=== PATIENT | male | born 1930 | race Caucasian/White ===

== ENCOUNTER → 2016-03-24 | Outpatient (CLI) | payer BC ==
[~2016-03-24] MED LIST: INSDGI SC; INSU1INJ2 SC; INSUINJ14 SC; OXYC-57 PO; TRAM-10 PO; WARF2.5T8 PO; WARF5TAB7 PO; [UNRECOGNIZED DRUG - CODE] TOP
--- NOTE | 2016-03-24 11:11 | DIAGNOSTIC IMAGING REPORT ---
ABDOMEN 2VIEW W/PA CHEST RTN CLINICAL HISTORY: Generalized abdominal pain and constipation COMPARISON STUDY: Chest x-ray dated 01/03/2016, CT scan dated 12/15/2015 FINDINGS: There are postsurgical changes of midline sternotomy. There is no free air. There is no focal pulmonary consolidation. Erect and supine views the abdomen reveal no abnormally dilated loops of large or small bowel. There are no transition zones indicate bowel obstruction. There is contrast within multiple colonic diverticula. There are surgical clips within the right upper quadrant consistent with a prior cholecystectomy. There is scattered stool within the region of the hepatic flexure. IMPRESSION: 1. No evidence of bowel obstruction. No evidence of free air 2. Colonic diverticulosis Electronically signed by: Dhruv Mendoza M.D. 03/24/2016 11:10 AM Dictated Date/Time: 03/24/2016 11:09 AM
== END | disposition home or self-care (01) ==
LOC: C.RAD1850 10:44
PROVIDERS: ATTEND Internal Medicine
DX: K57.90 Diverticulosis of intestine, part unspecified, without perforation or abscess without bleeding (principal)

== ENCOUNTER 2016-05-29 13:36 | Emergency (ER) | payer BC ==
[~2016-05-29] VITALS: Ht 172.7 cm; Wt 84.3 kg
[~2016-05-29 13:36] MED LIST changes: -INSU1INJ2 SC; -TRAM-10 PO
[2016-05-29 13:48] VITALS: TEMP 36.5; Ht 172.7 cm; Wt 84.3 kg
--- NOTE | 2016-05-29 14:25 | EMERGENCY ROOM VISIT NOTE ---
History Report prepared by Ty: Yessica Begum Under the Supervision of: Dr. Tom Flowers M.D. First contact with patient: 14:17 Chief Complaint: ABDOMINAL PAIN Stated Complaint: STOMACH PAIN Nursing Triage Summary: Pt c/o abd pain, worse on left lower quadrant. nausea, but denies v/d. tender with palpation. ongoing several weeks. Was seen by PCP, thinks it is Diverticulitis. pt does have hx of divertic. Hernia Surgery several months ago History of Present Illness The patient is an 85 year old male who presents to the Emergency Room with complaints of persistent left lower quadrant abdominal pain that began this morning. He currently rates his discomfort as a 5/10 in severity. The patient states that he has a history of diverticulitis in the past. He states that today he was at his PCP's office for ongoing right upper quadrant abdominal pain. The patient states that when his PCP palpated his left lower quadrant he noticed increased pain. Source of History: patient Onset: this morning Position: abdomen (LLQ) Symptom Intensity: 5/10 Timing: other (persistent) Associated Symptoms: + abdominal pain (right upper quadrant ) Review of Systems See HPI for pertinent positives & negatives. A total of 10 systems reviewed and were otherwise negative. Past Medical & Surgical Medical Problems: (1) Artificial Heart Valve (2) Diabetes mellitus (3) Gastroesophageal reflux disease (4) Lumbar radiculopathy (5) Paroxysmal atrial fibrillation Family History Cancer Social History Smoking Status: Never Smoker Alcohol Use: none Drug Use: none Marital Status: Housing Status: lives with family Occupation Status: retired Current/Historical Medications Scheduled Clotrimazole (Topical) ([facility] Clotrimazole), 1 DOSE TOP PRN Insulin Aspart (Novolog Penfill), 5 UNITS SC TIDM Insulin Glargine (Lantus), 30 UNITS SC HS Warfarin Sod (Jantoven), 5 MG PO 5XWEEK Warfarin Sod (Jantoven), 2.5 MG PO 2XWEEK Scheduled PRN Tramadol (Ultram), 50-100 MG PO Q6H PRN for Pain Allergies Coded Allergies: Glyburide (Verified Allergy, Unknown, PT NOT AWARE, 05/29/16) Metformin (Verified Allergy, Unknown, DIARRHEA, 05/29/16) Niacin (Verified Allergy, Unknown, RED FLUSH, 05/29/16) Ezetimibe (Verified Adverse Reaction, Unknown, ALL STATINS GIVE LEG CRAMPS , 05/29/16) HMG-CoA-R Inhibitors (Verified Adverse Reaction, Unknown, ALL STATINS GIVE LEG CRAMPS, 05/29/16) Physical Exam Vital Signs Date Time Temp Pulse Resp B/P Pulse Ox O2 Delivery O2 Flow Rate FiO2 05/29/16 17:19 68 18 142/75 97 Room Air 05/29/16 15:27 80 20 6/76 97 Room Air 05/29/16 13:48 36.5 84 20 118/78 97 Room Air Physical Exam GENERAL: Patient is a healthy-appearing well-nourished HEAD: Normocephalic atraumatic EYES: Ocular movements intact pupils equal and react to light OROPHARYNX mucous membranes are moist no exudates present no erythema or edema present NECK: Supple no nuchal rigidity CHEST: Good equal expansion LUNGS: Clear and equal to auscultation CARDIAC: Normal S1 and S2 ABDOMEN: Soft, mildly tender in the left lower quadrant, no guarding BACK: No CVA tenderness EXTREMITIES: No pain upon palpation normal muscle strength in all groups no clubbing cyanosis or edema NEURO: Patient is following commands is answering questions appropriately. Alert and oriented x3 Cranial Nerves 2-12 grossly intact Medical Decision & Procedures ER Provider Diagnostic Interpretation: Radiology results as stated below per my review and radiologist interpretation: CT OF THE ABDOMEN AND PELVIS WITH CONTRAST CLINICAL HISTORY: Left lower quadrant abdominal pain. COMPARISON STUDY: CT of the abdomen and pelvis December 15, 2015 TECHNIQUE: Following IV administration of 116 mL of Optiray-320, axial images of the abdomen and pelvis were obtained from the lung bases to the proximal femurs. Images were reviewed in the axial, sagittal, and coronal planes. IV contrast was administered without complication. CT DOSE: 493.91 mGy.cm FINDINGS: A prosthetic aortic valve is noted. There is moderate cardiomegaly. No pneumatosis, free air or portal venous gas is present. There is fatty infiltration of the liver. There is no biliary ductal dilatation status post cholecystectomy. The adrenal glands, kidneys and pancreas are unremarkable. There is no hydronephrosis. There is no evidence for a bowel obstruction. There is extensive sigmoid diverticulosis without evidence for acute diverticulitis. Post surgical findings suggestive of a left inguinal hernia repair are noted no suspicious skeletal lesions are identified. IMPRESSION: 1. No acute process within the abdomen or pelvis. 2. Fatty liver. 3. Extensive sigmoid diverticulosis without evidence for acute diverticulitis. Electronically signed by: Wu Burrell M.D. 05/29/2016 5:15 PM Dictated Date/Time: 05/29/2016 5:11 PM ABDOMINAL ULTRASOUND, RIGHT UPPER QUADRANT HISTORY: Right upper quadrant pain. COMPARISON: CT of the abdomen and pelvis December 15, 2015 and right upper quadrant ultrasound July 21, 2005. FINDINGS: Hepatic echogenicity is increased. There is no biliary ductal dilatation status post cholecystectomy. The pancreas is obscured by overlying bowel gas. There is no right hydronephrosis. IMPRESSION: 1. Fatty liver. 2. No biliary ductal dilatation status post cholecystectomy. 3. Obscured pancreas. Electronically signed by: Wu Burrell M.D. 05/29/2016 4:06 PM Dictated Date/Time: 05/29/2016 4:04 PM Laboratory Results 05/29/16 14:50 Red Blood Count 4.60, Mean Corpuscular Volume 90.4, Mean Corpuscular Hemoglobin 31.1, Mean Corpuscular Hemoglobin Concent 34.4, Mean Platelet Volume 10.4, Neutrophils (%) (Auto) 66.2, Lymphocytes (%) (Auto) 23.5, Monocytes (%) (Auto) 7.7, Eosinophils (%) (Auto) 1.8, Basophils (%) (Auto) 0.5, Neutrophils # (Auto) 4.11, Lymphocytes # (Auto) 1.46, Monocytes # (Auto) 0.48, Eosinophils # (Auto) 0.11, Basophils # (Auto) 0.03 05/29/16 14:50 Test 05/29/16 14:50 05/29/16 14:56 05/29/16 16:15 White Blood Count 6.21 K/uL (4.8-10.8) Red Blood Count 4.60 M/uL (4.7-6.1) Hemoglobin 14.3 g/dL (14.0-18.0) Hematocrit 41.6 % (42-52) Mean Corpuscular Volume 90.4 fL (80-100) Mean Corpuscular Hemoglobin 31.1 pg (25-34) Mean Corpuscular Hemoglobin Concent 34.4 g/dl (32-36) Platelet Count 196 K/uL (130-400) Mean Platelet Volume 10.4 fL (7.4-10.4) Neutrophils (%) (Auto) 66.2 % Lymphocytes (%) (Auto) 23.5 % Monocytes (%) (Auto) 7.7 % Eosinophils (%) (Auto) 1.8 % Basophils (%) (Auto) 0.5 % Neutrophils # (Auto) 4.11 K/uL (1.4-6.5) Lymphocytes # (Auto) 1.46 K/uL (1.2-3.4) Monocytes # (Auto) 0.48 K/uL (0.11-0.59) Eosinophils # (Auto) 0.11 K/uL (0-0.5) Basophils # (Auto) 0.03 K/uL (0-0.2) RDW Standard Deviation 42.7 fL (36.4-46.3) RDW Coefficient of Variation 13.0 % (11.5-14.5) Immature Granulocyte % (Auto) 0.3 % Immature Granulocyte # (Auto) 0.02 K/uL (0.00-0.02) Est Creatinine Clear Calc Drug Dose 34.8 ml/min Estimated GFR () 42.3 Estimated GFR (Non- 36.5 BUN/Creatinine Ratio 12.7 (10-20) Calcium Level 9.4 mg/dl (8.5-10.1) Total Bilirubin 0.4 mg/dl (0.2-1) Direct Bilirubin mg/dl (0-0.2) Aspartate Amino Transf (AST/SGOT) 24 U/L (15-37) Alanine Aminotransferase (ALT/SGPT) 28 U/L (12-78) Alkaline Phosphatase 84 U/L (45-117) Total Protein 7.7 gm/dl (6.4-8.2) Albumin 3.8 gm/dl (3.4-5.0) Lipase 72 U/L (73-393) Chemistry Specimen Hemolysis Bedside Hemoglobin 14.6 g/dl (14.0-18.0) Bedside Hematocrit 43 % (42-52) Bedside Sodium 140 mEq/L (135-144) Bedside Potassium 4.0 mEq/L (3.3-5.0) Bedside Chloride 99 mEq/L (101-112) Bedside Total CO2 26 mEq/l (24-31) Anion Gap 19.0 mmol/L (16-25) Bedside Blood Urea Nitrogen 23 mg/dl (7-18) Bedside Creatinine 1.4 mg/dl (0.6-1.3) Bedside Glucose (other) 193 mg/dl (70-99) Bedside Ionized Calcium (Sabra) 1.21 mmol/l (1.12-1.32) Urine Color YELLOW Urine Appearance CLOUDY (CLEAR) Urine pH 6.5 (4.5-7.5) Urine Specific [place] 1.008 (1.000-1.030) Urine Protein NEG (NEG) Urine Glucose (UA) NEG (NEG) Urine Ketones NEG (NEG) Urine Occult Blood NEG (NEG) Urine Nitrite NEG (NEG) Urine Bilirubin NEG (NEG) Urine Urobilinogen NEG (NEG) Urine Leukocyte Esterase NEG (NEG) Urine WBC (Auto) 0 /hpf (0-5) Urine RBC (Auto) 0-4 /hpf (0-4) Urine Hyaline Casts (Auto) 0 /lpf (0-5) Urine Epithelial Cells (Auto) 0-5 /lpf (0-5) Urine Bacteria (Auto) NEG (NEG) Labs reviewed by ED physician. Medications Administered Medications (Trade) Dose Ordered Sig/Cathi Route Start Time Stop Time Status Last Admin Dose Admin Sodium Chloride (Nss 1000ml) 1,000 ml @ 999 mls/hr Q1H1M STAT IV 05/29/16 14:26 05/29/16 15:26 DC 05/29/16 15:09 999 MLS/HR ED Course 1420: Past medical records reviewed. The patient was evaluated in room C2A. A complete history and physical examination was performed. 1426: Ordered Sodium Chloride 1000 ml @ 999 mls/hr IV. 1736: I reevaluated the patient and he is resting comfortably. I discussed the exam findings with him and I discussed the treatment plan. He verbalized complete understanding and agreement. He is ready to go home. Medical Decision Differential diagnosis: Etiologies such as appendicitis, diverticulitis, PUD, biliary pathology, UTI, pancreatitis, obstruction, mesenteric ischemia, aortic pathology, infections, inflammatory bowel disease, renal colic, as well as others were entertained. This is an 85-year-old male who presents emergency Department with his sent in by his primary care physician. They were sent" for a ultrasound of the left lower quadrant". Upon arrival to the emergency department I explained I do not think there will be a high yield for an ultrasound of the left lower quadrant however is insisting on it. The patient was sent for an ultrasound of the right upper quadrant which did not show any evidence of acute process. I will note that the patient has a normal CBC normal renal profile normal liver profile normal lipase here in the emergency department. In addition the CAT scan does not show any evidence of acute process. An IV was established, patient given normal saline bolus. I do believe based on the findings at the patient is well enough to be discharged home for follow-up with his primary care physician. Patient are in agreement with the treatment plan. Impression Primary Impression: Abdominal pain, left lower quadrant Scribe Attestation The scribe's documentation has been prepared under my direction and personally reviewed by me in its entirety. I confirm that the note above accurately reflects all work, treatment, procedures, and medical decision making performed by me. Departure Information Dispostion Home / Self-Care Referrals Viktor Jones M.D. (PCP) Forms HOME CARE DOCUMENTATION FORM, IMPORTANT VISIT INFORMATION, School Instructions, Work Instructions Patient Instructions ED Abd Pain Unkn Cause Male, ED Diet Clear Liquid, My [facility] Additional Instructions Take 10 oz bottle of miralax; Add to 16 oz of gatorade Drink continuously until moving creamy stools Clear liquid diet for next 48 hours Return if you develop fevers or pain worsens You have been examined and treated today on an emergency basis only. This is not a substitute for, or an effort to provide, complete comprehensive medical care. It is impossible to recognize and treat all injuries or illnesses in a single emergency department visit. It is therefore important that you follow up closely with Dr Jones. Call as soon as possible for an appointment. Thank you for your time and consideration. I look forward to speaking with you again soon. Please don't hesitate to call us if you have any questions.
[2016-05-29] MEDS ORDERED: SODIUM CHLORIDE 0.9% 1000ML 1,000 ML IV STA (14:26)
[2016-05-29] MEDS ORDERED: OPTIRAY 320 IV PRN (14:30)
[2016-05-29 15:01] LABS: BASO % 0.5 %; BASO ABS # 0.03 K/uL (0-0.2); COMPLETE YES; EOS % 1.8 %; HEMATOCRIT 41.6 % (42-52); IG% 0.3 %; LYMPH % 23.5 %; LYMPH ABS # 1.46 K/uL (1.2-3.4); MEAN CELL VOLUME 90.4 fL (80-100); MEAN CORPUSCULAR HEMOGLOBIN 31.1 pg (25-34); MEAN CORPUSCULAR HGB CONC 34.4 g/dl (32-36); MEAN PLATELET VOLUME 10.4 fL (7.4-10.4); MONO % 7.7 %; NEUT % 66.2 %; PLATELET COUNT 196 K/uL (130-400); WHITE BLOOD COUNT 6.21 K/uL (4.8-10.8)
[2016-05-29 15:10] LABS: ISTAT CREATININE 1.4 mg/dl (0.6-1.3); ISTAT HEMOGLOBIN 14.6 g/dl (14.0-18.0); ISTAT IONIZED CALCIUM 1.21 mmol/l (1.12-1.32)
[2016-05-29] MEDS ORDERED: INSU1INJ2 SC (15:50)
[2016-05-29] MEDS ORDERED: TRAM-10 PO (15:50)
[2016-05-29 15:52] LABS: ALKALINE PHOSPHATASE 84 U/L (45-117); ALT/SGPT 28 U/L (12-78); BLOOD UREA NITROGEN 22 mg/dl (7-18); BUN/CREATININE RATIO 12.7 (10-20); CALCIUM 9.4 mg/dl (8.5-10.1); CARBON DIOXIDE 30 mmol/L (21-32); CHLORIDE 103 mmol/L (98-107); GLUCOSE 192 mg/dl (70-99); POTASSIUM 4.2 mmol/L (3.5-5.1); SODIUM 140 mmol/L (136-145)
[2016-05-29 15:57] LABS: AST/SGOT 24 U/L (15-37)
--- NOTE | 2016-05-29 16:07 | DIAGNOSTIC IMAGING REPORT ---
ABDOMINAL ULTRASOUND, RIGHT UPPER QUADRANT HISTORY: Right upper quadrant pain. COMPARISON: CT of the abdomen and pelvis December 15, 2015 and right upper quadrant ultrasound July 21, 2005. FINDINGS: Hepatic echogenicity is increased. There is no biliary ductal dilatation status post cholecystectomy. The pancreas is obscured by overlying bowel gas. There is no right hydronephrosis. IMPRESSION: 1. Fatty liver. 2. No biliary ductal dilatation status post cholecystectomy. 3. Obscured pancreas. Electronically signed by: Wu Burrell M.D. 05/29/2016 4:06 PM Dictated Date/Time: 05/29/2016 4:04 PM
[2016-05-29 16:28] LABS: URINE APPEARANCE CLOUDY (CLEAR); URINE BILIRUBIN NEG (NEG); URINE COLOR YELLOW; URINE EPITHELIAL CELL AUTO 0-5 /lpf (0-5); URINE NITRITE NEG (NEG); URINE PH 6.5 (4.5-7.5); URINE SPECIFIC GRAVITY 1.008 (1.000-1.030); UROBILINOGEN NEG (NEG)
[2016-05-29 16:34] LABS: MANUAL MICROSCOPIC REQUIRED? NO; REVIEW REQ? NO
--- NOTE | 2016-05-29 17:16 | DIAGNOSTIC IMAGING REPORT ---
CT OF THE ABDOMEN AND PELVIS WITH CONTRAST CLINICAL HISTORY: Left lower quadrant abdominal pain. COMPARISON STUDY: CT of the abdomen and pelvis December 15, 2015 TECHNIQUE: Following IV administration of 116 mL of Optiray-320, axial images of the abdomen and pelvis were obtained from the lung bases to the proximal femurs. Images were reviewed in the axial, sagittal, and coronal planes. IV contrast was administered without complication. CT DOSE: 493.91 mGy.cm FINDINGS: A prosthetic aortic valve is noted. There is moderate cardiomegaly. No pneumatosis, free air or portal venous gas is present. There is fatty infiltration of the liver. There is no biliary ductal dilatation status post cholecystectomy. The adrenal glands, kidneys and pancreas are unremarkable. There is no hydronephrosis. There is no evidence for a bowel obstruction. There is extensive sigmoid diverticulosis without evidence for acute diverticulitis. Post surgical findings suggestive of a left inguinal hernia repair are noted no suspicious skeletal lesions are identified. IMPRESSION: 1. No acute process within the abdomen or pelvis. 2. Fatty liver. 3. Extensive sigmoid diverticulosis without evidence for acute diverticulitis. Electronically signed by: Wu Burrell M.D. 05/29/2016 5:15 PM Dictated Date/Time: 05/29/2016 5:11 PM
[2016-05-29 17:19] VITALS: BP 142/75; PULSE 68; O2SAT 97
== END 2016-05-29 17:56 | disposition home or self-care (01) ==
LOC: C.EDB 13:37 → C.EDC 17:56
DX: R10.32 Left lower quadrant pain (principal); R10.11 Right upper quadrant pain; E11.9 Type 2 diabetes mellitus without complications; K21.9 Gastro-esophageal reflux disease without esophagitis; I48.0 Paroxysmal atrial fibrillation; M54.16 Radiculopathy, lumbar region; Z95.2 Presence of prosthetic heart valve; Z79.4 Long term (current) use of insulin; Z79.01 Long term (current) use of anticoagulants

== ENCOUNTER → 2016-06-02 | Outpatient (CLI) | payer BC ==
[~2016-06-02] MED LIST changes: +INSU1INJ2 SC; -INSUINJ14 SC; -OXYC-57 PO; +TRAM-10 PO
== END | disposition home or self-care (01) ==
LOC: C.LABSPEC 16:52
PROVIDERS: ATTEND Physician Assistant Medical
DX: R10.9 Unspecified abdominal pain (principal)

== ENCOUNTER 2016-06-03 03:24 | Emergency (ER) | payer BC ==
[~2016-06-03] VITALS: Ht 172.7 cm; Wt 83.7 kg
[2016-06-03 03:42] VITALS: TEMP 36.5; Ht 172.7 cm; Wt 83.7 kg
--- NOTE | 2016-06-03 04:20 | EMERGENCY ROOM VISIT NOTE ---
History Report prepared by Ty: Jaylen Vick Under the Supervision of: Dr. Lacy Ace D.O. First contact with patient: 03:48 Chief Complaint: ABDOMINAL PAIN Stated Complaint: STOMACH PAINS Nursing Triage Summary: Patient reports lower abdominal pain x1 week and states "I think I'm passing worms." History of Present Illness The patient is an 85 year old male who presents to the Emergency Room with complaints of persistent abdominal pain for the past four weeks. The pain is rated 5/10 in severity, and is improved when he has a bowel movement. The patient has also been passing what he believes are worms in place of his bowel movements, which he first noticed yesterday. He saw his PCP and had a sample sent in yesterday, which has not been resulted. He was started on Cipro and Flagyl when he was in the ED last week for his abdominal pain. The patient has had a Big Mac, grilled cheese, venison to eat since he noticed the work-like objects. The patient also complains of intermittent nausea. The patient experiences frequent constipation for which he takes laxatives. He was able to get some sleep tonight prior to coming in to the ED. He has been to the ED in the past for abdominal pain also. He has had colonoscopies in the past and had a benign polyp removed. He is diabetic. Source of History: patient Onset: four weeks ago Position: abdomen Symptom Intensity: 5/10 Timing: other (persistent) Modifying Factors (Relieving): defecation Associated Symptoms: + nausea Review of Systems See HPI for pertinent positives & negatives. A total of 10 systems reviewed and were otherwise negative. Past Medical & Surgical Medical Problems: (1) Artificial Heart Valve (2) Diabetes mellitus (3) Gastroesophageal reflux disease (4) Lumbar radiculopathy (5) Paroxysmal atrial fibrillation Family History Cancer Social History Smoking Status: Never Smoker Alcohol Use: none Drug Use: none Marital Status: Housing Status: lives with family Occupation Status: retired Current/Historical Medications Scheduled Insulin Aspart (Novolog Penfill), 5 UNITS SC TIDM Insulin Glargine (Lantus), 30 UNITS SC HS Warfarin Sod (Jantoven), 5 MG PO 5XWEEK Warfarin Sod (Jantoven), 2.5 MG PO 2XWEEK Scheduled PRN Tramadol (Ultram), 50-100 MG PO Q6H PRN for Pain Allergies Coded Allergies: Glyburide (Verified Allergy, Unknown, PT NOT AWARE, 06/03/16) Metformin (Verified Allergy, Unknown, DIARRHEA, 06/03/16) Niacin (Verified Allergy, Unknown, RED FLUSH, 06/03/16) Ezetimibe (Verified Adverse Reaction, Unknown, ALL STATINS GIVE LEG CRAMPS , 06/03/16) HMG-CoA-R Inhibitors (Verified Adverse Reaction, Unknown, ALL STATINS GIVE LEG CRAMPS, 06/03/16) Physical Exam Vital Signs Date Time Temp Pulse Resp B/P Pulse Ox O2 Delivery O2 Flow Rate FiO2 06/03/16 05:27 82 18 134/91 97 Room Air 06/03/16 03:42 36.5 83 18 150/97 97 Room Air Physical Exam HEENT: Head - normocephalic and atraumatic Pupils are equal, round, and reactive to light. Extraocular eye muscles are intact, and sclera are anicteric. Nose - moist nasal mucosa without discharge. Mouth - moist buccal mucosa. Oropharynx is nonerythematous and there is no tonsillar exudate or edema noted. Neck: Supple; no JVD, nuchal rigidity, cervical lymphadenopathy. Heart: Regular rate and rhythm. There is a normal S1 and S2 with no murmurs, clicks, or gallops appreciated. Lungs: Clear to auscultation bilaterally with no wheezes, rales, or rhonchi. Abdomen: Slight pain with palpation of the right upper quadrant. There are no palpable pulsatile masses or hepatosplenomegaly. There is no guarding, rigidity , or rebound noted. Extremities: No evidence of cyanosis, clubbing, or edema. There are easily palpable peripheral pulses. Skin: warm and dry with good turgor and no rashes. Medical Decision & Procedures Laboratory Results 06/03/16 04:30 Red Blood Count 4.66, Mean Corpuscular Volume 90.1, Mean Corpuscular Hemoglobin 31.8, Mean Corpuscular Hemoglobin Concent 35.2, Mean Platelet Volume 10.3, Neutrophils (%) (Auto) 60.6, Lymphocytes (%) (Auto) 25.2, Monocytes (%) (Auto) 11.1, Eosinophils (%) (Auto) 2.5, Basophils (%) (Auto) 0.3, Neutrophils # (Auto ) 3.70, Lymphocytes # (Auto) 1.54, Monocytes # (Auto) 0.68, Eosinophils # (Auto ) 0.15, Basophils # (Auto) 0.02 06/03/16 04:30 Test 06/03/16 04:30 White Blood Count 6.11 K/uL (4.8-10.8) Red Blood Count 4.66 M/uL (4.7-6.1) Hemoglobin 14.8 g/dL (14.0-18.0) Hematocrit 42.0 % (42-52) Mean Corpuscular Volume 90.1 fL (80-100) Mean Corpuscular Hemoglobin 31.8 pg (25-34) Mean Corpuscular Hemoglobin Concent 35.2 g/dl (32-36) Platelet Count 191 K/uL (130-400) Mean Platelet Volume 10.3 fL (7.4-10.4) Neutrophils (%) (Auto) 60.6 % Lymphocytes (%) (Auto) 25.2 % Monocytes (%) (Auto) 11.1 % Eosinophils (%) (Auto) 2.5 % Basophils (%) (Auto) 0.3 % Neutrophils # (Auto) 3.70 K/uL (1.4-6.5) Lymphocytes # (Auto) 1.54 K/uL (1.2-3.4) Monocytes # (Auto) 0.68 K/uL (0.11-0.59) Eosinophils # (Auto) 0.15 K/uL (0-0.5) Basophils # (Auto) 0.02 K/uL (0-0.2) RDW Standard Deviation 42.2 fL (36.4-46.3) RDW Coefficient of Variation 12.9 % (11.5-14.5) Immature Granulocyte % (Auto) 0.3 % Immature Granulocyte # (Auto) 0.02 K/uL (0.00-0.02) Anion Gap 5.0 mmol/L (3-11) Est Creatinine Clear Calc Drug Dose 36.9 ml/min Estimated GFR () 45.5 Estimated GFR (Non- 39.3 BUN/Creatinine Ratio 12.7 (10-20) Calcium Level 9.3 mg/dl (8.5-10.1) Laboratory results per my review. Medications Administered Medications (Trade) Dose Ordered Sig/Cathi Route Start Time Stop Time Status Last Admin Dose Admin Hydromorphone HCl (Dilaudid Inj) 2 mg NOW STAT IV 06/03/16 04:37 06/03/16 04:38 DC 06/03/16 04:43 2 MG Procedure Medications administered include Dilaudid IV. ED Course 0400: Past medical records reviewed. The patient was evaluated in room B10. A complete history and physical exam was performed. I examined the patient's stool that he brought with him. IV lock was established. Labs were drawn as above. 0413: I Examined the stool sample with a scalpel revealing brown soft stool within dark green cords. Findings do not appear to be consistent with worms. 0430: The patient describes having a completely normal bowel movement containing normal brown stool, no worm-like objects seen. 0437: Dilaudid 2 mg IV for the abdominal pain. 0525: The patient's pain is down to a 2/10 from 4/10. I discussed the discharge instructions with him. He will be discharged. Medical Decision The patient is a 85 year old male who presents to the ED with abdominal pain. Differential diagnosis includes medication side effects, colitis, gastritis, parasites in stool. Laboratory interpretation: normal white count, stable H&H, creatinine down to 1.6, glucose 145. This is an 85-year-old male patient who is had ongoing abdominal pain. The past 4 weeks. He was seen here earlier this week and underwent laboratory testing, CT scan of the abdomen/pelvis, and ultrasound. These tests were all negative. The patient saw his PCP yesterday and submitted a stool specimen for parasites. This is currently pending. Physical exam, the patient's abdomen was only mildly tender to palpation in the right upper quadrant. The patient describes having some discomfort in the left lower quadrant of the abdomen earlier in the evening. After having a bowel movement, that pain subsided. I spent some time examining the patient's stool that he brought with him here to the emergency department. There was dark green stool that appeared in records. I was able to cut these open and noted brown stool in the middle. They did not look like worms. Impression Primary Impression: Abnormal stools Additional Impression: Diffuse abdominal pain Scribe Attestation The scribe's documentation has been prepared under my direction and personally reviewed by me in its entirety. I confirm that the note above accurately reflects all work, treatment, procedures, and medical decision making performed by me. Departure Information Dispostion Home / Self-Care Referrals Viktor Jones M.D. (PCP) Forms HOME CARE DOCUMENTATION FORM, IMPORTANT VISIT INFORMATION Patient Instructions My [facility] Additional Instructions Rest Take a bland diet. It's ok to stop the antibiotics Follow up for results of stool Return to the ER for severe pain, fever, or vomiting Problem Qualifiers
[2016-06-03] MEDS ORDERED: HYDROmorphone INJ 2 MG/ML SYR/VIAL IV STA (04:37)
[2016-06-03 04:49] LABS: BASO % 0.3 %; BASO ABS # 0.02 K/uL (0-0.2); COMPLETE YES; EOS % 2.5 %; IG% 0.3 %; LYMPH % 25.2 %; LYMPH ABS # 1.54 K/uL (1.2-3.4); MEAN CELL VOLUME 90.1 fL (80-100); MEAN CORPUSCULAR HEMOGLOBIN 31.8 pg (25-34); MEAN CORPUSCULAR HGB CONC 35.2 g/dl (32-36); MEAN PLATELET VOLUME 10.3 fL (7.4-10.4); MONO % 11.1 %; NEUT % 60.6 %; PLATELET COUNT 191 K/uL (130-400); RED BLOOD COUNT 4.66 M/uL (4.7-6.1); WHITE BLOOD COUNT 6.11 K/uL (4.8-10.8)
[2016-06-03 05:05] LABS: BUN/CREATININE RATIO 12.7 (10-20); CALCIUM 9.3 mg/dl (8.5-10.1); CREATININE 1.6 mg/dl (0.60-1.40); POTASSIUM 3.9 mmol/L (3.5-5.1)
[2016-06-03 05:27] VITALS: BP 134/91; PULSE 82; O2SAT 97
== END 2016-06-03 05:38 | disposition home or self-care (01) ==
LOC: C.EDB 03:25
DX: R19.5 Other fecal abnormalities (principal); R10.9 Unspecified abdominal pain; E11.9 Type 2 diabetes mellitus without complications; K21.9 Gastro-esophageal reflux disease without esophagitis; I48.91 Unspecified atrial fibrillation; Z95.2 Presence of prosthetic heart valve; Z79.4 Long term (current) use of insulin; Z79.01 Long term (current) use of anticoagulants

== ENCOUNTER → 2016-07-17 | Outpatient (CLI) | payer BC ==
[~2016-07-17] MED LIST changes: -[UNRECOGNIZED DRUG - CODE] TOP
== END | disposition home or self-care (01) ==
LOC: C.LABBFT 09:49
PROVIDERS: ATTEND Urology
DX: R97.20 Elevated prostate specific antigen [PSA] (principal)

== ENCOUNTER → 2016-11-13 | Outpatient (CLI) | payer BC ==
[2016-11-13 17:44] LABS: BASO % 0.3 %; BASO ABS # 0.02 K/uL (0-0.2); COMPLETE YES; EOS % 1.5 %; HEMATOCRIT 38.2 % (42-52); IG% 0.4 %; LYMPH % 20.6 %; LYMPH ABS # 1.56 K/uL (1.2-3.4); MEAN CELL VOLUME 93.4 fL (80-100); MEAN CORPUSCULAR HEMOGLOBIN 32.5 pg (25-34); MEAN CORPUSCULAR HGB CONC 34.8 g/dl (32-36); MEAN PLATELET VOLUME 11.5 fL (7.4-10.4); MONO % 7.3 %; NEUT % 69.9 %; PLATELET COUNT 183 K/uL (130-400); RED BLOOD COUNT 4.09 M/uL (4.7-6.1); WHITE BLOOD COUNT 7.58 K/uL (4.8-10.8)
[2016-11-13 17:46] LABS: URINE APPEARANCE CLEAR (CLEAR); URINE BILIRUBIN NEG (NEG); URINE COLOR YELLOW; URINE NITRITE NEG (NEG); URINE SPECIFIC GRAVITY 1.017 (1.000-1.030); UROBILINOGEN NEG (NEG); ZZUR CULT IF INDIC CLEAN CATCH NO
[2016-11-13 17:48] LABS: MANUAL MICROSCOPIC REQUIRED? NO; REVIEW REQ? NO
[2016-11-13 17:49] LABS: ALT/SGPT 24 U/L (12-78); AMYLASE 56 U/L (25-115); BLOOD UREA NITROGEN 26 mg/dl (7-18); BUN/CREATININE RATIO 16.4 (10-20); CARBON DIOXIDE 27 mmol/L (21-32); CHLORIDE 105 mmol/L (98-107); GLUCOSE 184 mg/dl (70-99); POTASSIUM 4.3 mmol/L (3.5-5.1); SODIUM 139 mmol/L (136-145)
[2016-11-13 17:52] LABS: ALB/GLOB RATIO 1.2 (0.9-2); ALKALINE PHOSPHATASE 70 U/L (45-117); AST/SGOT 19 U/L (15-37)
== END | disposition home or self-care (01) ==
LOC: C.LABBFT 14:07
PROVIDERS: ATTEND Physician Assistant Medical
DX: R10.9 Unspecified abdominal pain (principal); R97.20 Elevated prostate specific antigen [PSA]

== ENCOUNTER → 2016-11-15 | Outpatient (CLI) | payer BC ==
[~2016-11-15] MED LIST changes: +GADAVIST IV PRN
--- NOTE | 2016-11-17 15:28 | DIAGNOSTIC IMAGING REPORT ---
PROSTATE MRI COMBO CLINICAL HISTORY: 86 year-old Male presenting with ELEVATED PSA. TECHNIQUE: Multisequence, multiplanar MR imaging of the prostate was performed pre and postcontrast administration with dynamic enhancement. Injection of 8.3 cc of Gadavist IV was uneventful. Post processing was performed utilizing [employer]. COMPARISON: CT of the abdomen and pelvis May 29, 2016. FINDINGS: Prostate: The prostate measures 5.4 x 3.8 x 4 cm (calculated volume 39.3 mL). Moderate changes of benign prostatic hyperplasia. Precontrast T1 weighted imaging demonstrates no significant abnormality Seminal vesicles are normal. No suspicious lesions are identified within the prostate gland. A TURP defect is noted. Specifically, no T2 hypointense lesions are identified and there no areas of significant restricted diffusion to suggest malignancy within the prostate gland. The periprostatic tissues are unremarkable. There is no pelvic lymphadenopathy. No suspicious marrow replacement is identified within visualized skeletal structures. There is mild irregular wall thickening of the urinary bladder. PI-RADS: 1. Clinically significant cancer is highly unlikely to be present. IMPRESSION: 1. No evidence of a suspicious lesion within the prostate. PI-RADS 1. No suspicious findings. Clinically significant cancer is highly unlikely to be present. 2. Findings consistent with benign prostatic hyperplasia. Electronically signed by: Wu Burrell M.D. 11/17/2016 3:27 PM Dictated Date/Time: 11/17/2016 12:48 PM
== END | disposition home or self-care (01) ==
LOC: C.MRIBC 08:41
PROVIDERS: ATTEND Urology
DX: N40.2 Nodular prostate without lower urinary tract symptoms (principal); R97.20 Elevated prostate specific antigen [PSA]

== ENCOUNTER → 2016-12-11 | Outpatient (CLI) | payer BC ==
[~2016-12-11] MED LIST changes: -GADAVIST IV PRN
[2016-12-11 12:29] LABS: BASO % 0.3 %; BASO ABS # 0.02 K/uL (0-0.2); COMPLETE YES; EOS % 1.7 %; HEMATOCRIT 41.6 % (42-52); IG% 0.5 %; LYMPH % 25.2 %; LYMPH ABS # 1.52 K/uL (1.2-3.4); MEAN CELL VOLUME 92.7 fL (80-100); MEAN CORPUSCULAR HEMOGLOBIN 32.5 pg (25-34); MEAN CORPUSCULAR HGB CONC 35.1 g/dl (32-36); MEAN PLATELET VOLUME 11.6 fL (7.4-10.4); MONO % 9.8 %; NEUT % 62.5 %; PLATELET COUNT 197 K/uL (130-400); RED BLOOD COUNT 4.49 M/uL (4.7-6.1); WHITE BLOOD COUNT 6.04 K/uL (4.8-10.8)
[2016-12-11 12:41] LABS: ESTIMATED AVERAGE GLUCOSE 174 mg/dl; HA1C FLAG Normal (Normal)
[2016-12-11 13:26] LABS: ALT/SGPT 23 U/L (12-78); AST/SGOT 16 U/L (15-37); BLOOD UREA NITROGEN 25 mg/dl (7-18); BUN/CREATININE RATIO 17.6 (10-20); CALCIUM 8.9 mg/dl (8.5-10.1); CARBON DIOXIDE 28 mmol/L (21-32); CHLORIDE 105 mmol/L (98-107); GLUCOSE 82 mg/dl (70-99); SODIUM 140 mmol/L (136-145)
[2016-12-11 13:29] LABS: ALB/GLOB RATIO 1.1 (0.9-2); ALKALINE PHOSPHATASE 75 U/L (45-117); CHOLESTEROL 250 mg/dl (0-200); CHOLESTEROL/HDL RATIO 5.8; HDL CHOLESTEROL 43 mg/dl; LDL CHOLESTEROL CALCULATED 153 mg/dl; TRIGLYCERIDES 270 mg/dl (0-150); VERY LOW DENSITY LIPOPROT CALC 54 mg/dl
== END | disposition home or self-care (01) ==
LOC: C.LABBFT 09:41
PROVIDERS: ATTEND Internal Medicine
DX: I25.10 Atherosclerotic heart disease of native coronary artery without angina pectoris (principal); E78.5 Hyperlipidemia, unspecified; E11.49 Type 2 diabetes mellitus with other diabetic neurological complication; K76.0 Fatty (change of) liver, not elsewhere classified; N18.3 Chronic kidney disease, stage 3 (moderate)

== ENCOUNTER → 2017-03-08 | Outpatient (CLI) | payer BC | END | disposition home or self-care (01) | LOC: C.LABBFT 13:26 | PROVIDERS: ATTEND Physician Assistant Medical | DX: M79.1 Myalgia (principal); M60.9 Myositis, unspecified ==

== ENCOUNTER → 2017-04-02 | Outpatient (CLI) | payer BC ==
[~2017-04-02] MED LIST changes: +PRED20TA PO; +WARF10TA4 PO
[2017-04-02 17:40] LABS: BASO % 0.4 %; BASO ABS # 0.03 K/uL (0-0.2); EOS % 2.2 %; EOS ABS # 0.15 K/uL (0-0.5); HEMATOCRIT 40.5 % (42-52); HEMOGLOBIN 13.6 g/dL (14.0-18.0); IG# 0.04 K/uL (0.00-0.02); LYMPH ABS # 1.52 K/uL (1.2-3.4); MEAN CELL VOLUME 94.6 fL (80-100); MEAN CORPUSCULAR HEMOGLOBIN 31.8 pg (25-34); MEAN CORPUSCULAR HGB CONC 33.6 g/dl (32-36); MEAN PLATELET VOLUME 11.3 fL (7.4-10.4); MONO % 9.1 %; MONO ABS # 0.63 K/uL (0.11-0.59); NEUT % 65.7 %; NEUT ABS # 4.55 K/uL (1.4-6.5); PLATELET COUNT 219 K/uL (130-400); RED CELL DISTRIBUTION WIDTH CV 13.2 % (11.5-14.5); RED CELL DISTRIBUTION WIDTH SD 45.7 fL (36.4-46.3); WHITE BLOOD COUNT 6.92 K/uL (4.8-10.8)
[2017-04-02 17:54] LABS: ALBUMIN 3.7 gm/dl (3.4-5.0); ALT/SGPT 27 U/L (12-78); AST/SGOT 19 U/L (15-37); BLOOD UREA NITROGEN 26 mg/dl (7-18); CALCIUM 9.1 mg/dl (8.5-10.1); CARBON DIOXIDE 28 mmol/L (21-32); GLUCOSE 109 mg/dl (70-99); POTASSIUM 4.4 mmol/L (3.5-5.1); SODIUM 137 mmol/L (136-145)
[2017-04-02 17:56] LABS: ALKALINE PHOSPHATASE 81 U/L (45-117); TOTAL PROTEIN 7.5 gm/dl (6.4-8.2)
[2017-04-07 00:33] LABS: ANA SCREEN TC 249X POSITIVE (NEGATIVE); PARVOVIRUS IgM INDEX 0.2 (<0.9)
[2017-04-09 12:10] LABS: ANA TITER 1:40 TITER (<1:40)
== END | disposition home or self-care (01) ==
LOC: C.LABBFT 13:22
PROVIDERS: ATTEND Internal Medicine
DX: M25.50 Pain in unspecified joint (principal)

== ENCOUNTER → 2017-04-02 | Outpatient (CLI) | payer BC ==
[~2017-04-02] MED LIST changes: -PRED20TA PO; -WARF10TA4 PO
--- NOTE | 2017-04-02 14:07 | DIAGNOSTIC IMAGING REPORT ---
R SHOULDER MIN 2 VIEWS ROUTINE CLINICAL HISTORY: M25.50 Arthralgia of multiple [id number] pain. Arthralgia. COMPARISON: None. DISCUSSION: Mild degenerative change of the glenohumeral articular services. Minimal narrowing of the acromiohumeral space. There is subtle Hill-Sachs type deformity. Mild degenerative change acromioclavicular joint. There is no evidence for soft tissue swelling. IMPRESSION: Mild/moderate degenerative change. No acute bony abnormality. The above report was generated using voice recognition software. It may contain grammatical, syntax or spelling errors. Electronically signed by: Adrien Russ M.D. 04/02/2017 2:06 PM Dictated Date/Time: 04/02/2017 2:05 PM
--- NOTE | 2017-04-02 14:08 | DIAGNOSTIC IMAGING REPORT ---
L SHOULDER MIN 2 VIEWS ROUTINE HISTORY: 86 years-old Male M25.50 acute multijoint pain. COMPARISON: Acute abdominal series radiographs 03/24/2016 TECHNIQUE: 3 views of the left shoulder FINDINGS: Mild glenohumeral and chronic reticular degenerative changes without acute fracture or dislocation. Ill-defined linear calcifications are seen adjacent to the posterior facet greater tuberosity. No intra-articular loose body. Mild left lung apex pleural thickening. Prior median sternotomy. Prosthetic aortic valve is noted in addition to atherosclerosis of the aorta. IMPRESSION: 1. Mild glenohumeral and acromioclavicular degenerative changes without acute fracture or dislocation. 2. Ill-defined calcifications adjacent to the posterior facet greater tuberosity suggests infraspinatus calcific tendinosis. The above report was generated using voice recognition software. It may contain grammatical, syntax or spelling errors. Electronically signed by: Dilshad Mock M.D. 04/02/2017 2:07 PM Dictated Date/Time: 04/02/2017 2:05 PM
== END | disposition home or self-care (01) ==
LOC: C.RAD1850 13:54
PROVIDERS: ATTEND Internal Medicine
DX: M25.50 Pain in unspecified joint (principal)

== ENCOUNTER 2017-04-06 08:17 | Emergency (ER) | payer BC ==
[~2017-04-06] VITALS: Ht 172.7 cm; Wt 86.1 kg
[~2017-04-06 08:17] MED LIST changes: -INSDGI SC; -INSU1INJ2 SC; -TRAM-10 PO
[2017-04-06 08:25] VITALS: TEMP 36.8; Ht 172.7 cm; Wt 86.1 kg
[2017-04-06] MEDS ORDERED: WARF5TAB7 PO (08:48)
[2017-04-06] MEDS ORDERED: WARF10TA4 PO (08:48)
[2017-04-06] MEDS ORDERED: ONDANSETRON INJ 2 MG/ML 2 ML VIAL IV STA (09:23)
[2017-04-06] MEDS ORDERED: SODIUM CHLORIDE 0.9% 1000ML 1,000 ML IV STA (09:23)
[2017-04-06] MEDS ORDERED: MoRPHine SULFATE 4 MG/ML 1 ML CARP\\VIAL IV STA (09:23)
[2017-04-06] MEDS ORDERED: INSDGI SC (09:30)
--- NOTE | 2017-04-06 09:44 | EMERGENCY ROOM VISIT NOTE ---
History Report prepared by Ty: Dany Hobson Under the Supervision of: Dr. Karol Cabral M.D. First contact with patient: 09:11 Chief Complaint: PAIN (GENERALIZED) Stated Complaint: PAIN ALL OVER History of Present Illness The patient is an 86 year old male who presents to the Emergency Room with complaints of persistent body aches for one week. He states that he can barely dress himself due to left shoulder pain. He reports limited movement of his left shoulder. He feels as though he can hardly maintain his balance when standing due to the pain and weakness in his legs and hips. He notes that he could barely open his jaw this morning. He currently rates his pain a 5/10 in severity. He notes he was given corticosteroids in his left hand for trigger finger. He denies any fevers, shortness of breath, or abdominal pain. He notes chest pain. He has a history of unresponsiveness secondary to a UTI in 2012. He was recently diagnosed with global arthritis. His sedimentary rate was elevated to 15 in March 08, 2017. He has a history of DM and atrial fibrillation. He regularly takes Coumadin. Source of History: patient Onset: one week Position: other (global (body)) Symptom Intensity: 5/10 Quality: ache Timing: other (persistent) Associated Symptoms: + chest pain, + weakness (leg ), No fevers, No SOB, No abdominal pain Note: He notes left shoulder pain with limited movement. He notes bilateral leg pain and hip pain. He notes limited jaw movement. Review of Systems See HPI for pertinent positives & negatives. A total of 10 systems reviewed and were otherwise negative. Past Medical & Surgical Medical Problems: (1) Artificial Heart Valve (2) Diabetes mellitus (3) Gastroesophageal reflux disease (4) Lumbar radiculopathy (5) Paroxysmal atrial fibrillation Family History Cancer Social History Smoking Status: Never Smoker Alcohol Use: none Drug Use: none Marital Status: Housing Status: lives with family Occupation Status: retired Current/Historical Medications Scheduled Insulin Aspart (Novolog Penfill), 5 UNITS SC TIDM Insulin Glargine (Lantus), 30 UNITS SC HS Prednisone (Prednisone), 20 MG PO DAILY Warfarin Sod (Jantoven), 10 MG PO 5XWK Warfarin Sod (Jantoven), 5 MG PO 2XWK Scheduled PRN Tramadol (Ultram), 50-100 MG PO Q6H PRN for Pain Allergies Coded Allergies: Glyburide (Verified Allergy, Unknown, PT NOT AWARE, 04/06/17) Tramadol (Unverified Allergy, Unknown, upset stomach, 04/06/17) Ezetimibe (Verified Adverse Reaction, Unknown, ALL STATINS GIVE LEG CRAMPS , 04/06/17) HMG-CoA-R Inhibitors (Verified Adverse Reaction, Unknown, ALL STATINS GIVE LEG CRAMPS, 04/06/17) Metformin (Verified Adverse Reaction, Unknown, DIARRHEA, 04/06/17) Niacin (Verified Adverse Reaction, Unknown, RED FLUSH, 04/06/17) Physical Exam Vital Signs Date Time Temp Pulse Resp B/P (MAP) Pulse Ox O2 Delivery O2 Flow Rate FiO2 04/06/17 12:24 82 20 127/82 96 04/06/17 10:31 78 18 138/92 98 Room Air 04/06/17 10:28 84 04/06/17 08:25 36.8 59 18 152/107 95 Room Air Physical Exam Vital signs reviewed. General: Well-appearing, in no significant distress. No fever. HEENT: No scleral icterus, PERRLA, neck supple. Atraumatic. No signs of meningismus. Cardiovascular: Regular rate and rhythm, no extra sounds. Pulmonary: Clear to auscultation bilaterally, normal work of breathing. Abdomen: Soft, nontender, nondistended, positive bowel sounds. Musculoskeletal: Atraumatic, no peripheral edema. Diffusely tender to the shoulders bilaterally, the hips bilaterally, his hands, and his wrist. No erythema. Neurologic: Patient awake alert and oriented x 3, full strength in all 4 extremities. Cranial nerves 2 through 12 grossly intact. Skin: Warm, dry, no rash Medical Decision & Procedures ER Provider Diagnostic Interpretation: Radiology results as stated below per my review and radiologist interpretation: CHEST ONE VIEW PORTABLE CLINICAL HISTORY: Atypical chest pain COMPARISON STUDY: 03/24/2016 FINDINGS: There are postsurgical changes of a midline sternotomy and aortic valve replacement. The heart is borderline enlarged. There is no lobar consolidation. Since the prior study, the patient has developed nonspecific interstitial opacities at the right lung base. There are no pleural effusions. There is no overt failure.[ IMPRESSION: Interval development of nonspecific interstitial thickening/opacities at the right lung base. No evidence of lobar consolidation. No evidence of overt failure. Electronically signed by: Dhruv Mendoza M.D. 04/06/2017 9:45 AM Dictated Date/Time: 04/06/2017 9:44 AM Laboratory Results 04/06/17 10:00 Red Blood Count 4.22, Mean Corpuscular Volume 93.4, Mean Corpuscular Hemoglobin 31.8, Mean Corpuscular Hemoglobin Concent 34.0, Mean Platelet Volume 10.0, Neutrophils (%) (Auto) 75.2, Lymphocytes (%) (Auto) 15.6, Monocytes (%) (Auto) 6.9, Eosinophils (%) (Auto) 1.4, Basophils (%) (Auto) 0.2, Neutrophils # (Auto) 6.48, Lymphocytes # (Auto) 1.34, Monocytes # (Auto) 0.59, Eosinophils # (Auto) 0.12, Basophils # (Auto) 0.02 04/06/17 10:00 Test 04/06/17 10:00 04/06/17 11:50 White Blood Count 8.61 K/uL (4.8-10.8) Red Blood Count 4.22 M/uL (4.7-6.1) Hemoglobin 13.4 g/dL (14.0-18.0) Hematocrit 39.4 % (42-52) Mean Corpuscular Volume 93.4 fL (80-100) Mean Corpuscular Hemoglobin 31.8 pg (25-34) Mean Corpuscular Hemoglobin Concent 34.0 g/dl (32-36) Platelet Count 221 K/uL (130-400) Mean Platelet Volume 10.0 fL (7.4-10.4) Neutrophils (%) (Auto) 75.2 % Lymphocytes (%) (Auto) 15.6 % Monocytes (%) (Auto) 6.9 % Eosinophils (%) (Auto) 1.4 % Basophils (%) (Auto) 0.2 % Neutrophils # (Auto) 6.48 K/uL (1.4-6.5) Lymphocytes # (Auto) 1.34 K/uL (1.2-3.4) Monocytes # (Auto) 0.59 K/uL (0.11-0.59) Eosinophils # (Auto) 0.12 K/uL (0-0.5) Basophils # (Auto) 0.02 K/uL (0-0.2) RDW Standard Deviation 44.1 fL (36.4-46.3) RDW Coefficient of Variation 12.9 % (11.5-14.5) Immature Granulocyte % (Auto) 0.7 % Immature Granulocyte # (Auto) 0.06 K/uL (0.00-0.02) Erythrocyte Sedimentation Rate 25 mm/hr (0-14) Prothrombin Time 24.1 SECONDS (9.0-12.0) Prothromb Time International Ratio 2.3 (0.9-1.1) Activated Partial Thromboplast Time 35.9 SECONDS (21.0-31.0) Partial Thromboplastin Ratio 1.4 Anion Gap 8.0 mmol/L (3-11) Est Creatinine Clear Calc Drug Dose 46.6 ml/min Estimated GFR () 60.3 Estimated GFR (Non- 52.0 BUN/Creatinine Ratio 16.7 (10-20) Calcium Level 8.9 mg/dl (8.5-10.1) Magnesium Level 2.1 mg/dl (1.8-2.4) Total Bilirubin 0.5 mg/dl (0.2-1) Direct Bilirubin 0.1 mg/dl (0-0.2) Aspartate Amino Transf (AST/SGOT) 25 U/L (15-37) Alanine Aminotransferase (ALT/SGPT) 27 U/L (12-78) Alkaline Phosphatase 71 U/L (45-117) Total Creatine Kinase 90 U/L (39-308) Creatine Kinase MB 1.3 ng/ml (0.5-3.6) Creatine Kinase MB Ratio 1.4 (0-3.0) C-Reactive Protein 1.76 mg/dl (0-0.29) Total Protein 7.5 gm/dl (6.4-8.2) Albumin 3.6 gm/dl (3.4-5.0) Urine Color YELLOW Urine Appearance CLEAR (CLEAR) Urine pH 6.0 (4.5-7.5) Urine Specific Brady 1.014 (1.000-1.030) Urine Protein NEG (NEG) Urine Glucose (UA) NEG (NEG) Urine Ketones NEG (NEG) Urine Occult Blood NEG (NEG) Urine Nitrite POS (NEG) Urine Bilirubin NEG (NEG) Urine Urobilinogen NEG (NEG) Urine Leukocyte Esterase SMALL (NEG) Urine WBC (Auto) 10-30 /hpf (0-5) Urine RBC (Auto) 0-4 /hpf (0-4) Urine Hyaline Casts (Auto) 1-5 /lpf (0-5) Urine Epithelial Cells (Auto) 10-20 /lpf (0-5) Urine Bacteria (Auto) 1+ (NEG) Urine Yeast (Auto) (NONE PRSENT) Laboratory results per my review. Medications Administered Medications (Trade) Dose Ordered Sig/Cathi Route Start Time Stop Time Status Last Admin Dose Admin Morphine Sulfate (MoRPHine SULFATE INJ) 4 mg NOW STAT IV 04/06/17 09:23 04/06/17 09:27 DC 04/06/17 10:15 4 MG Ondansetron HCl (Zofran Inj) 4 mg NOW STAT IV 04/06/17 09:23 04/06/17 09:27 DC 04/06/17 10:16 4 MG Sodium Chloride 1,000 ml @ 150 mls/hr Q6H40M STAT IV 04/06/17 09:23 04/06/17 13:20 DC 04/06/17 09:23 150 MLS/HR Methylprednisolone Sodium Succinate (Solu-Medrol IV) 125 mg NOW STAT IV 04/06/17 11:27 04/06/17 11:28 DC 04/06/17 11:45 125 MG ECG Indication: other (body aches) Rate (beats per minute): 82 Rhythm: atrial fibrillation Findings: no acute ischemic change, no ectopy, other (QTC is 420) Change: Patient's electrocardiogram interpreted by me. ED Course 919: Past medical records reviewed. The patient was evaluated in room A3. A complete history and physical examination was performed. 922: Ordered Sodium Chloride 1,000 ml @ 150 mls/hr IV, Zofran 4 mg IV, and Morphine Sulfate 4 mg IV 1112: I reassessed the patient at this time. He is still experiencing pain. 1127: Ordered Solu-Medrol 125 mg IV 1132: I spoke with Dr. Jones, internal medicine. We discussed the patient's case. He agrees with the treatment plan. He will follow up with him as an outpatient. 1138: I reassessed the patient at this time. He is resting comfortably. I discussed the results and treatment plan with the patient. I answered all pertaining questions that he had. He expressed understanding and verbalized agreement. The patient will be discharged home. Medical Decision The patient is a 86 year old male who presents to the ED with complaints of body aches. Differentials include infectious etiology. medication side effect, inflammatory disease, and arthritis. This patient was evaluated and appeared to be in no significant distress. Physical examination reveals a diffuse tenderness to the proximal joints primarily. Patient was given IV morphine and Zofran with improvement of his discomfort. He was hydrated with normal saline solution. Patient's laboratory work reveals an elevated sedimentation rate and CRP. UA is concerning for infection although the patient is a symptomatic. This will be sent for culture as it is contaminated with epithelial cells. Chest x-ray was performed and reveals evidence of what is likely atelectasis. He has no fever, cough or respiratory symptoms otherwise. I did contact the patient's PCP, Dr. Jones. He agrees to a plan to initiate steroids. Patient was given 125 mg of IV Solu- Medrol and a prescription for a one-week course of prednisone 20 mg daily. He has an appointment with rheumatology within the next week. He will return to the ER for worsening of symptoms or any medical concerns. Medication Reconcilliation Current Medication List: was personally reviewed by me Blood Pressure Screening Patient's blood pressure: Normal blood pressure Consults Time Called: 1115 Consulting Physician: Dr. Jones, internal medicine Returned Call: [address] Jones, internal medicine. We discussed the patient's case. He agrees with the treatment plan. He will follow up with him as an outpatient. Impression Primary Impression: Myalgia Scribe Attestation The scribe's documentation has been prepared under my direction and personally reviewed by me in its entirety. I confirm that the note above accurately reflects all work, treatment, procedures, and medical decision making performed by me. Departure Information Dispostion Home / Self-Care Prescriptions Prednisone (Prednisone) 20 Mg Tab 20 MG PO DAILY, #7 TAB Prov: Karol Cabral M.D. 04/06/17 Referrals No Doctor, Assigned (PCP) Forms HOME CARE DOCUMENTATION FORM, IMPORTANT VISIT INFORMATION, WORK / SCHOOL INSTRUCTIONS Patient Instructions My [facility] Additional Instructions Diagnosis: Myalgias Prednisone 20 mg daily for the next 7 days. Start this medication tomorrow. Follow-up with Dr. Terry as scheduled for reevaluation. Tylenol 650 mg every 6 hours as needed for pain. Return to the emergency department for worsening of symptoms or any medical concerns.
--- NOTE | 2017-04-06 09:47 | DIAGNOSTIC IMAGING REPORT ---
CHEST ONE VIEW PORTABLE CLINICAL HISTORY: Atypical chest pain COMPARISON STUDY: 03/24/2016 FINDINGS: There are postsurgical changes of a midline sternotomy and aortic valve replacement. The heart is borderline enlarged. There is no lobar consolidation. Since the prior study, the patient has developed nonspecific interstitial opacities at the right lung base. There are no pleural effusions. There is no overt failure.[ IMPRESSION: Interval development of nonspecific interstitial thickening/opacities at the right lung base. No evidence of lobar consolidation. No evidence of overt failure. Electronically signed by: Dhruv Mendoza M.D. 04/06/2017 9:45 AM Dictated Date/Time: 04/06/2017 9:44 AM
[2017-04-06 10:20] LABS: BASO % 0.2 %; BASO ABS # 0.02 K/uL (0-0.2); EOS % 1.4 %; EOS ABS # 0.12 K/uL (0-0.5); HEMATOCRIT 39.4 % (42-52); HEMOGLOBIN 13.4 g/dL (14.0-18.0); IG# 0.06 K/uL (0.00-0.02); LYMPH % 15.6 %; LYMPH ABS # 1.34 K/uL (1.2-3.4); MEAN CELL VOLUME 93.4 fL (80-100); MEAN CORPUSCULAR HEMOGLOBIN 31.8 pg (25-34); MONO % 6.9 %; MONO ABS # 0.59 K/uL (0.11-0.59); NEUT % 75.2 %; NEUT ABS # 6.48 K/uL (1.4-6.5); PLATELET COUNT 221 K/uL (130-400); RED CELL DISTRIBUTION WIDTH CV 12.9 % (11.5-14.5); RED CELL DISTRIBUTION WIDTH SD 44.1 fL (36.4-46.3); WHITE BLOOD COUNT 8.61 K/uL (4.8-10.8)
[2017-04-06 10:37] LABS: ALBUMIN 3.6 gm/dl (3.4-5.0); CALCIUM 8.9 mg/dl (8.5-10.1); CREATININE 1.26 mg/dl (0.60-1.40); POTASSIUM 4.3 mmol/L (3.5-5.1)
[2017-04-06 10:38] LABS: CKMB 1.3 ng/ml (0.5-3.6); TOTAL PROTEIN 7.5 gm/dl (6.4-8.2)
[2017-04-06] MEDS ORDERED: METHYLPREDNISOLONE 125 MG VIAL IV STA (11:27)
[2017-04-06] MEDS ORDERED: PRED20TA PO (11:50)
[2017-04-06 12:24] VITALS: BP 127/82; PULSE 82; O2SAT 96
[2017-04-06 12:29] LABS: INR 2.3 (0.9-1.1); PTT PATIENT 35.9 SECONDS (21.0-31.0)
[2017-04-06] MEDS ORDERED: TRAM-10 PO (15:50)
[2017-04-06] MEDS ORDERED: INSU1INJ2 SC (15:50)
--- NOTE | 2017-04-09 14:17 | Pharmacy Progress Note ---
ED Pharmacist Culture FollowUp Date of Service: Apr 09, 2017. Patient's urine culture grew Coag negative staph, +low counts other mixed marti. UA was nitrite +, WBC 10-30, Epi 10-20. Patient had no urinary symptoms at visit and main complaint was myalgia. Discussed with Dr. Laguna, clinical f/u via telephone for urinary symptoms, if no symptoms no treatment necessary. Called patient and talked with who reports patient has not had any burning with urination or more frequent urination, no different than normal (patient sometimes has difficulty urinating). Let her know that the patient's urine culture did grow a bacteria that is commonly found on skin but since he is not having any urinary symptoms treatment is not necessary. Patient's expressed concern as patient had a history of UTI that then resulted in positive blood cultures (E. coli in 2012). She requested the results be sent to Dr. Jones in the [facility] [place] office for him to review. I called the office and spoke with a nurse who printed the results from [employer] to be given to Dr. Jones for review.
== END 2017-04-06 12:27 | disposition home or self-care (01) ==
LOC: C.EDB 08:19 → C.EDA 12:27
DX: M79.1 Myalgia (principal); Z95.2 Presence of prosthetic heart valve; E11.9 Type 2 diabetes mellitus without complications; K21.9 Gastro-esophageal reflux disease without esophagitis; I48.91 Unspecified atrial fibrillation; Z79.4 Long term (current) use of insulin; Z79.01 Long term (current) use of anticoagulants; Z51.81 Encounter for therapeutic drug level monitoring

== ENCOUNTER → 2017-04-09 | Outpatient (CLI) | payer BC ==
[~2017-04-09] MED LIST changes: +INSDGI SC; +INSU1INJ2 SC; +PRED20TA PO; +TRAM-10 PO; +WARF10TA4 PO; -WARF2.5T8 PO
--- NOTE | 2017-04-09 18:30 | DIAGNOSTIC IMAGING REPORT ---
R HAND MIN 3 VIEWS ROUTINE, L HAND MIN 3 VIEWS ROUTINE HISTORY: 86 years-old Male ARTHRALGIA chronic bilateral hand pain without reported trauma COMPARISON: None available TECHNIQUE: 3 views of the bilateral hands FINDINGS: LEFT: Mild chondrocalcinosis within the region of the TFCC. Mild radiocarpal and triscaphe degenerative changes with mild to moderate first carpometacarpal osteoarthritis. Severe joint space narrowing is seen within the second and third DIP joints with prominent subcortical cystic changes, joint space remodeling and marginal spurring. Mild to moderate DIP and PIP degenerative changes are seen throughout the remainder of the digits. No acute fracture or subluxation. RIGHT: No acute fracture or subluxation identified. Minimal chondrocalcinosis in the region of the lunatotriquetral joint. Mild radiocarpal and triscaphe degenerative changes with mild to moderate first carpometacarpal osteoarthritis. Moderate degenerative changes are seen throughout the PIP and DIP joints. IMPRESSION: 1. No acute fracture or subluxation identified within either hand. 2. Multifocal degenerative changes as above are noted bilaterally, most pronounced within the left second and third DIP joints. The above report was generated using voice recognition software. It may contain grammatical, syntax or spelling errors. Electronically signed by: Dilshad Mock M.D. 04/09/2017 6:29 PM Dictated Date/Time: 04/09/2017 6:25 PM
== END | disposition home or self-care (01) ==
LOC: C.RAD1850 17:17
PROVIDERS: ATTEND Internal Medicine Rheumatology
DX: M25.50 Pain in unspecified joint (principal); M35.3 Polymyalgia rheumatica; M79.1 Myalgia; R76.8 Other specified abnormal immunological findings in serum; S03.00XA Dislocation of jaw, unspecified side, initial encounter; X58.XXXA Exposure to other specified factors, initial encounter; M19.041 Primary osteoarthritis, right hand; M19.042 Primary osteoarthritis, left hand

== ENCOUNTER → 2017-04-17 | Outpatient (CLI) | payer BC | END | disposition home or self-care (01) | LOC: C.LABBFT 12:47 | PROVIDERS: ATTEND Physician Assistant Medical | DX: R39.9 Unspecified symptoms and signs involving the genitourinary system (principal) ==

== ENCOUNTER → 2017-04-20 | Outpatient (CLI) | payer BC ==
[2017-04-20 16:57] LABS: BLOOD UREA NITROGEN 30 mg/dl (7-18); CREATININE 1.47 mg/dl (0.60-1.40)
== END | disposition home or self-care (01) ==
LOC: C.LABBFT 11:30
PROVIDERS: ATTEND Internal Medicine Rheumatology
DX: M35.3 Polymyalgia rheumatica (principal); N52.9 Male erectile dysfunction, unspecified

== ENCOUNTER → 2017-05-23 | Outpatient (CLI) | payer BC | END | disposition home or self-care (01) | LOC: C.LAB1850 15:29 | PROVIDERS: ATTEND Internal Medicine Rheumatology | DX: M35.3 Polymyalgia rheumatica (principal); M31.6 Other giant cell arteritis ==

== ENCOUNTER → 2017-06-12 | Outpatient (CLI) | payer BC ==
[2017-06-12 16:44] LABS: BASO % 0.3 %; BASO ABS # 0.03 K/uL (0-0.2); EOS % 0.2 %; EOS ABS # 0.02 K/uL (0-0.5); HEMATOCRIT 41.2 % (42-52); HEMOGLOBIN 14.4 g/dL (14.0-18.0); IG# 0.18 K/uL (0.00-0.02); LYMPH % 7.8 %; LYMPH ABS # 0.88 K/uL (1.2-3.4); MEAN CELL VOLUME 94.5 fL (80-100); MEAN PLATELET VOLUME 11.3 fL (7.4-10.4); MONO % 4.1 %; MONO ABS # 0.46 K/uL (0.11-0.59); NEUT ABS # 9.71 K/uL (1.4-6.5); NUCLEATED RED BLOOD CELL ABS 0.03 K/uL (0-0); PLATELET COUNT 206 K/uL (130-400); WHITE BLOOD COUNT 11.28 K/uL (4.8-10.8)
[2017-06-12 17:25] LABS: ALBUMIN 3.8 gm/dl (3.4-5.0); ALT/SGPT 28 U/L (12-78); AST/SGOT 16 U/L (15-37); BLOOD UREA NITROGEN 32 mg/dl (7-18); CALCIUM 9.3 mg/dl (8.5-10.1); CARBON DIOXIDE 27 mmol/L (21-32); CREATININE 1.52 mg/dl (0.60-1.40); GLUCOSE 284 mg/dl (70-99); POTASSIUM 4.9 mmol/L (3.5-5.1); SODIUM 133 mmol/L (136-145)
[2017-06-12 17:36] LABS: ALKALINE PHOSPHATASE 64 U/L (45-117); TOTAL PROTEIN 7.8 gm/dl (6.4-8.2)
[2017-06-13 06:06] LABS: HEMOGLOBIN A1C 10.9 % (4.5-5.6)
== END | disposition home or self-care (01) ==
LOC: C.LABBFT 12:22
PROVIDERS: ATTEND Internal Medicine Rheumatology
DX: Z00.00 Encounter for general adult medical examination without abnormal findings (principal); R53.83 Other fatigue; E11.49 Type 2 diabetes mellitus with other diabetic neurological complication

== ENCOUNTER → 2017-10-02 | Outpatient (CLI) | payer BC ==
[~2017-10-02] MED LIST changes: +ERGO1TAB12 PO; +PRED-301 PO; -PRED20TA PO; +TOCI20IN SC; -WARF5TAB7 PO
== END | disposition home or self-care (01) ==
LOC: C.LABBFT 10:32
PROVIDERS: ATTEND Internal Medicine Rheumatology
DX: M35.3 Polymyalgia rheumatica (principal); M31.6 Other giant cell arteritis; Z79.52 Long term (current) use of systemic steroids; Z79.899 Other long term (current) drug therapy

== ENCOUNTER 2019-02-07 19:23 | Inpatient (IN) ==
[2019-02-07 20:03] LABS: Basophils # (auto) 0.02 K/uL (0-0.2); Basophils % (auto) 0.3 %; Eosinophils # (auto) 0.21 K/uL (0-0.5); Eosinophils % (auto) 2.9 %; Hematocrit (blood only) 39.4 % (42-52); Hemoglobin 13.6 g/dL (14.0-18.0); Immature Granulocytes # (auto) 0.07 K/uL (0.00-0.02); Lymphocytes # (auto) 2.19 K/uL (1.2-3.4); Lymphocytes % (auto) 30.5 %; Mean Corpuscular Hemoglobin 32.7 pg (25-34); Mean Corpuscular Hgb Conc 34.5 g/dL (32-36); Mean Corpuscular Volume 94.7 fL (80-100); Monocytes # (auto) 0.55 K/uL (0.11-0.59); Monocytes % (auto) 7.7 %; Neutrophils # (auto) 4.13 K/uL (1.4-6.5); Neutrophils % (auto) 57.6 %; Platelet Count 229 K/uL (130-400); RDW Coefficient of Variation 13.2 % (11.5-14.5); RDW Standard Deviation 45.4 fL (36.4-46.3); Red Blood Count 4.16 M/uL (4.7-6.1); White Blood Count 7.17 K/uL (4.8-10.8)
[2019-02-07] MEDS ORDERED: PHYTONADIONE 5 MG TAB PO STA (20:10)
[2019-02-07 20:12] LABS: iSTAT Creatinine 1.4 mg/dl (0.6-1.3); iSTAT Hemoglobin 13.3 g/dl (14.0-18.0); iSTAT Ionized Calcium 1.21 mmol/l (1.12-1.32); iSTAT Potassium 3.7 mEq/L (3.3-5.0)
[2019-02-07 20:14] LABS: INR 1.7 (0.9-1.1); Partial Thromboplastin Ratio 1.1; Partial Thromboplastin Time 30.5 Seconds (21.0-31.0); Prothrombin Time 16.9 Seconds (9.0-12.0)
[2019-02-07] MEDS ORDERED: IOVERSOL 100ml IV PRN (20:19)
[2019-02-07 20:21] LABS: Alanine Aminotransferase 25 U/L (12-78); Aspartate Aminotransferase 20 U/L (15-37); BUN Creatinine Ratio 13.8 (10-20); Blood Urea Nitrogen 22 mg/dl (7-18); Calcium 9.7 mg/dl (8.5-10.1); Carbon Dioxide 27 mmol/L (21-32); Chloride 106 mmol/L (98-107); Est GFR (African American) 45.2; Glucose 232 mg/dl (70-99); Potassium 3.7 mmol/L (3.5-5.1); Sodium 140 mmol/L (136-145)
[2019-02-07 20:25] LABS: Albumin Globulin Ratio 1.1 (0.9-2); Alkaline Phosphatase 89 U/L (45-117); Bilirubin,Total 0.3 mg/dl (0.2-1); Globulin 3.6 gm/dl (2.5-4.0); Total Protein 7.6 gm/dl (6.4-8.2); Troponin I < 0.015 ng/ml (0-0.045)
--- NOTE | 2019-02-07 20:35 | CT Scan Report ---
CT abd pelvis IV con only CLINICAL HISTORY: 88 years-old Male presenting with Pt c/o abd pain hematochezia. TECHNIQUE: Multidetector CT of the abdomen and pelvis was performed after the administration of intra venous contrast. IV contrast: 92 mL of Optiray 320. One or more dose lowering techniques were used co nsistent with the principles of ALARA (as low as reasonably achievable), including automatic exposure control, mA or kV adjustment to individual patient size, and/or use of iterative reconstruction. COMPARISON: None. CT DOSE (mGy.cm): The estimated cumulative dose is 588.15 mGy.cm. FINDINGS: [employer] topogram: Cardiomegaly. Sternotomy wires. Lung bases: Top normal heart size. Coronary artery, aortic valve, and mitral annular calcification. N o pericardial or pleural effusion. No focal infiltrate or nodule at the lung bases. Liver: Normal morphology. Density suggestive of hepatic steatosis. No focal lesion. Patent hepatic va sculature. Biliary: No intrahepatic or extrahepatic biliary ductal dilatation. Normal gallbladder. Pancreas: Moderate parenchymal atrophy. Spleen: Normal. Adrenal glands: Normal. Kidneys and ureters: Normal. No hydronephrosis. Bladder: Mild circumferential bladder wall thickening. Pelvic organs: A TURP defect may be present in the prostate. The prostate is mildly enlarged. Bowel: Diverticulosis of the proximal to mid sigmoid colon and distal descending colon. There is foca l wall thickening with trace if any pericolonic inflammatory change of the junction of the descending and sigmoid colon. Peritoneal cavity: No free fluid or intraperitoneal gas. Lymph nodes: No enlarged lymph nodes in the abdomen or pelvis. Vasculature: Atherosclerosis of the normal caliber abdominal aorta. IVC patent. Abdominal wall: Normal. Musculoskeletal: Degenerative changes of the spine. Median sternotomy wires. IMPRESSION: 1. Diverticulosis coli with focal wall thickening at the junction of the descending and sigmoid colo n. 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 Diverticulosis would be the expected cause for the patient's hematochezia and is more likely to occur in the absence of diverticulitis. 2. Hepatic steatosis. 3. Status post cholecystectomy. Electronically signed by: Darnell Hopson M.D. 02/07/2019 8:33 PM
[2019-02-07] MEDS ORDERED: DAPTOMYCIN IV ONE (21:21)
[2019-02-07] MEDS ORDERED: PIPERACILLIN/TAZOBACTAM 4.5 GM/120 ML BAG IV ONE (21:21)
[2019-02-07] MEDS ORDERED: PIPERACILL/TAZOBAC CONSULT ACTIVE PRN (21:21)
--- NOTE | 2019-02-07 21:53 | History & Physical Report ---
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 His is at the bedside. He states he was taking warfarin chronically given his paroxysmal A. 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 Earlier this evening he began to notice specks of red in his stool, followed by 2 more house bowel movements with increasingly more blood which prompted him to come to the ER. Rectal bleeding while on anticoagulant: In the ER he is remained normotensive and not tachycardic. He had 2 more bright red bloody bowel movements. His H&H was 13.6/39.4. Otherwise no elevated white count, platelets 229, INR 1.7, BMP unremarkable. Patient appears to have chron ically elevated creatinine baseline appears to be 1.4-1.5. Today he is 1.58. Glucose 232. CT abdomen pelvis with IV contrast shows diverticulosis with focal wall thickening which could represent diverticulitis. He was started on Zosyn, daptomycin. 10mg PO Vit K was given. Gastroenterology and hematology was consulted. Plan: -admit to telemetry -H&H q6h -blood type and screened, will transfuse if Hgb below 8.0 given cardiac history -NPO Diverticulitis/ history of diverticulosis -bleeding may be 2/2 diverticular bleed - gastroenterology has been consulted -maintain NPO -in minimal pain currently, pain med prn -continue Zosyn PAF, bioprosthetic valve -per patient he was switched to Xarelto on day of admission and has only taken one dose -he wanted to switch from warfarin so as to avoid constant monitoring -states he takes up to 600mg of ibuprofen daily for lower back pain Plan: -avoid antiinflammatories -rate is controlled on no meds -will need plan moving forward for anticoagulant per cardiology, sees Dr. Prabhakar. FEN/GI: NPO, famotidine 20mg IV BID, D5W 1/ NSS + 20K @100ml/hr DVT ppx: SCDs. Chem contraindicated in setting of active bleeding CODE STATUS: FULL as d/w pt and family at bedside DISPO: Tele Other chronic medical problems: T2DM insulin dependent - states he takes 32mg Basal nightly, last A1C at goal (8.1). ISS and decreased dose of basal insulin ordered while NPO. 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 His is at the bedside. He states he was taking warfarin chronically given his paroxysmal A. 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 Earlier this evening he began to notice specks of red in his stool, followed by 2 more house bowel movements with increasingly more blood which prompted him to come to the ER. In the ER he is remained normotensive and not tachycardic. He had 2 more bright red bloody bowel movements. His H&H was 13.6/39.4. Otherwise no white count, platelets 229, INR 1.7, BMP unremarkable. Patient appears to have chronically elevated creatinine baseline appears to be 1.4-1.5. Today he is 1.58. Glucose 232. CT abdomen pelvis with IV contrast shows diverticulosis with focal wall thickening which could represent diverticulitis. He was started on Zosyn, daptomycin. Gastroenterology was consulted. PMH: As above PSH: Cholecystectomy, left-sided hernia repair, aortic valve repair with bioprosthetic valve 1999 SH: Retired, lives with his . Former smoker. Does not drink or use drugs. Allergies Allergy/AdvReac Type Severity Reaction Status Date / Time glyburide Allergy Unknown PT NOT Verified 02/06/19 13:57 AWARE ezetimibe AdvReac Unknown ALL Verified 02/06/19 13:57 STATINS GIVE LEG CRAMPS metformin AdvReac Unknown DIARRHEA Verified 02/06/19 13:57 niacin AdvReac Unknown RED FLUSH Verified 02/06/19 13:57 tramadol AdvReac Unknown upset Verified 02/06/19 13:57 stomach HMG-CoA-R Inhibitors AdvReac Unknown ALL Uncoded 02/06/19 13:57 STATINS GIVE LEG CRAMPS Home Medications Home Medications Medication Instructions Recorded Confirmed Type insulin aspar prot-insulin aspart 5 units SUBCUT .COMPLEX #15 ml 12/18/18 02/07/19 Rx 100 unit/mL (70-30) subcutaneous pen insulin glargine 100) 100 unit/mL 32 unit SUBCUT HS #10 ml 12/18/18 02/07/19 Rx subcutaneous solution montelukast 10 mg tablet 10 mg PO DAILY #30 tab 01/14/19 02/07/19 Rx folic acid 1 mg tablet 1 mg PO DAILY 02/06/19 02/07/19 History methotrexate sodium 2.5 mg tablet 12.5 mg PO DAILY tab 02/06/19 02/07/19 History rivaroxaban [Xarelto] 15 mg PO QAM 02/07/19 02/07/19 History Past Med/Surg History Medical History Allergic rhinitis (Acute) Anticoagulant long-term use (Acute) Anxiety (Acute) Aortic valve disorder (Acute) Arthralgia of multiple sites (Acute) CAD in [place] artery (Acute) Chronic kidney disease, stage III (moderate) (Acute) Constipation (Acute) Diabetes mellitus, type 2 IDDM Diverticulitis of colon (Acute) Dyslipidemia (Acute) Elevated prostate specific antigen (PSA) (Acute) Enlarged prostate without lower urinary tract symptoms (luts) (Acute) Fatty liver (Acute) Fecal urgency (Acute) Gait abnormality (Acute) Gastroesophageal reflux disease (Acute) Gastroparesis (Acute) Generalized muscle weakness (Acute) Gout (Acute) Hypercholesterolemia (Acute) Hyperlipidemia Idiopathic polyneuropathy (Acute) Incomplete emptying of bladder (Acute) Inguinal hernia (Acute) rn 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 (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) use of systemic steroids (Acute) Long-term use of immunosuppressant medication (Acute) Lower back pain (Acute) Lumbar disc disease (Chronic) Memory loss (Acute) Mitral regurgitation (Acute) Neoplasm of bladder (Acute) Neuroma (Acute) Non-compliant patient (Acute) Organic impotence (Acute) Paroxysmal atrial fibrillation (Acute) Polymyalgia rheumatica (Acute) Polyneuropathy (Acute) Poor balance (Acute) Positive CROW (antinuclear antibody) (Acute) Prostate nodule (Acute) Rheumatoid arthritis Sciatica (Acute) Seborrheic dermatitis (Acute) Spinal stenosis of lumbar region (Chronic) Steroid-induced osteoporosis (Acute) Temporal arteritis (Acute) TMJ (dislocation of temporomandibular joint) (Acute) Type 2 diabetes mellitus with neurologic complication (Acute) Unsteady gait (Acute) Vertigo (Acute) Vitamin D deficiency (Acute) Surgical History H/O heart bypass surgery (Resolved) History of adenoidectomy History of appendectomy History of cardiac cath 1999 History of cataract surgery RIGHT CATARACT History of cholecystectomy History of colonoscopy History of cystoscopy History of esophagogastroduodenoscopy (EGD) History of heart valve replacement AORTIC HEART VALVE, 1999. FOLLOWS WITH DR. PRABHAKAR. History of herniorrhaphy INGUINAL History of tonsillectomy Family History Father Stroke syndrome Brother Stroke syndrome AAA (abdominal aortic aneurysm) Sister AAA (abdominal aortic aneurysm) Lung cancer Unknown Pancreatic cancer Social History Preferred Language: Chinese Communication Ability: Effective Visual Impairment: Limited Hearing Ability: Normal Protective Service Specialist Required: No Beliefs That Will Affect Care: None marital status: Current Living Situation: Spouse current occupational status: retired Other Information That Helps Us Care for You: No Feels Safe at Home: Yes Safety Concerns: Feels Safe At This Time Smoking Status: Light tobacco smoker Tobacco Type: cigars ; Do You Dip or Chew Tobacco: No ; Second Hand Exposure: No ; Tobacco Cessation Education Requested by Patient: No Hx Alcohol Use: No Hx Substance Use: No Seatbelt Use: always Review of Systems Review of Systems: Endorses crampy abdominal pain mainly in the left lower quadrant. He denies chest pain, difficulty breathing, dysuria, or syncope. He states he does get lightheaded or dizzy from time to time but this is not increased from his baseline. Physical Exam Physical Exam: Vitals noted and within normal limits GENERAL: Awake, alert to person, place, and time, nontoxic-appearing, in no distress. HENT: Normocephalic, atraumatic. Mucus membranes appear moist. EYES: Normal conjunctiva. Sclera non-icteric. EOMI. NECK: Supple. Full range of motion. No JVD. RESPIRATORY: Clear to auscultation. Normal work of breathing. CARDIAC: Irregularly irregular rate and rhythm. Extremities warm and well perfused. ABDOMEN: Soft, non-distended. Mild tenderness to palpation in left lower quadrant to deep palpation. No rebound or guarding. No masses. Bowel sounds are normal. LOWER EXTREMITIES: Inspection of calves reveal equal size bilaterally. They are non-tender. No edema. No discoloration. NEURO: No gross focal motor deficits noted. Sensation in tact. CN II-XII grossly in tact. . SKIN: Rash not present. No jaundice noted. PSYCH: Appropriate mood and affect. Cooperative. and son are present at the bedside. Exam as done by Amanda Rollins MD, Geomorphology Teacher. Results & Data Vital Signs (Past 12 Hours) Vital Signs Temp Pulse Pulse Resp BP Pulse Ox 02/07/19 21:14 87 18 139/91 93 02/07/19 20:06 101 H 20 157/95 H 97 02/07/19 20:05 99 02/07/19 19:26 36.6 C 114 H 18 92 Laboratory Results 02/07/19 02/07/19 02/07/19 Range/Units 20:00 19:52 19:52 WBC (4.8-10.8) K/uL RBC (4.7-6.1) M/uL Hgb (14.0-18.0) g/dL POC Hgb 13.3 L (14.0-18.0) g/dl Hct (42-52) % POC Hct 39 L (42-52) % MCV (80-100) fL MCH (25-34) pg MCHC (32-36) g/dL RDW Std Deviation (36.4-46.3) fL RDW Coeff of Zita (11.5-14.5) % Plt Count (130-400) K/uL MPV (7.4-10.4) fL Immature Gran % (Auto) % Neut % (Auto) % Lymph % (Auto) % Eagle % (Auto) % Eos % (Auto) % Baso % (Auto) % Immature Gran # (Auto) (0.00-0.02) K/uL Neut # (Auto) (1.4-6.5) K/uL Lymph # (Auto) (1.2-3.4) K/uL Eagle # (Auto) (0.11-0.59) K/uL Eos # (Auto) (0-0.5) K/uL Baso # (Auto) (0-0.2) K/uL PT (9.0-12.0) Seconds INR (0.9-1.1) APTT (21.0-31.0) Seconds PTT Ratio Heparin Anti-Xa, LM Wt 1.29 (< 0.10) IU/ML POC Sodium 140 (135-144) mEq/L Sodium 140 (136-145) mmol/L POC Potassium 3.7 (3.3-5.0) mEq/L Potassium 3.7 (3.5-5.1) mmol/L POC Chloride 104 (101-112) mEq/L Chloride 106 (98-107) mmol/L Carbon Dioxide 27 (21-32) mmol/L POC Total CO2 27 (24-31) mEq/l Anion Gap 7.0 (3-11) POC Anion Gap 14.0 L (16-25) mmol/L POC BUN 22 H (7-18) mg/dl BUN 22 H (7-18) mg/dl Creatinine 1.58 H (0.6-1.4) mg/dl POC Creatinine 1.4 H (0.6-1.3) mg/dl Est Cr Clr Drug Dosing Not Reportable Est GFR ( Amer) 45.2 Est GFR (Non-Af Amer) 39.0 BUN/Creatinine Ratio 13.8 (10-20) Glucose 232 H (70-99) mg/dl POC Glucose (other) 230 H (70-99) mg/dl Calcium 9.7 (8.5-10.1) mg/dl POC Ioniz Calcium [place] 1.21 (1.12-1.32) mmol/l Total Bilirubin 0.3 (0.2-1) mg/dl AST 20 (15-37) U/L ALT 25 (12-78) U/L Alkaline Phosphatase 89 (45-117) U/L Troponin I < 0.015 (0-0.045) ng/ml Total Protein 7.6 (6.4-8.2) gm/dl Albumin 4.0 (3.4-5.0) gm/dl Globulin 3.6 (2.5-4.0) gm/dl Albumin/Globulin Ratio 1.1 (0.9-2) Blood Type Antibody Screen Antibody Identification Antibody ID Comment 02/07/19 02/07/19 02/07/19 Range/Units 19:52 19:52 19:49 WBC 7.17 (4.8-10.8) K/uL RBC 4.16 L (4.7-6.1) M/uL Hgb 13.6 L (14.0-18.0) g/dL POC Hgb (14.0-18.0) g/dl Hct 39.4 L (42-52) % POC Hct (42-52) % MCV 94.7 (80-100) fL MCH 32.7 (25-34) pg MCHC 34.5 (32-36) g/dL RDW Std Deviation 45.4 (36.4-46.3) fL RDW Coeff of Zita 13.2 (11.5-14.5) % Plt Count 229 (130-400) K/uL MPV 10.0 (7.4-10.4) fL Immature Gran % (Auto) 1.0 % Neut % (Auto) 57.6 % Lymph % (Auto) 30.5 % Eagle % (Auto) 7.7 % Eos % (Auto) 2.9 % Baso % (Auto) 0.3 % Immature Gran # (Auto) 0.07 H (0.00-0.02) K/uL Neut # (Auto) 4.13 (1.4-6.5) K/uL Lymph # (Auto) 2.19 (1.2-3.4) K/uL Eagle # (Auto) 0.55 (0.11-0.59) K/uL Eos # (Auto) 0.21 (0-0.5) K/uL Baso # (Auto) 0.02 (0-0.2) K/uL PT 16.9 H (9.0-12.0) Seconds INR 1.7 H (0.9-1.1) APTT 30.5 (21.0-31.0) Seconds PTT Ratio 1.1 Heparin Anti-Xa, LM Wt (< 0.10) IU/ML POC Sodium (135-144) mEq/L Sodium (136-145) mmol/L POC Potassium (3.3-5.0) mEq/L Potassium (3.5-5.1) mmol/L POC Chloride (101-112) mEq/L Chloride (98-107) mmol/L Carbon Dioxide (21-32) mmol/L POC Total CO2 (24-31) mEq/l Anion Gap (3-11) POC Anion Gap (16-25) mmol/L POC BUN (7-18) mg/dl BUN (7-18) mg/dl Creatinine (0.6-1.4) mg/dl POC Creatinine (0.6-1.3) mg/dl Est Cr Clr Drug Dosing Est GFR ( Amer) Est GFR (Non-Af Amer) BUN/Creatinine Ratio (10-20) Glucose (70-99) mg/dl POC Glucose (other) (70-99) mg/dl Calcium (8.5-10.1) mg/dl POC Ioniz Calcium [place] (1.12-1.32) mmol/l Total Bilirubin (0.2-1) mg/dl AST (15-37) U/L ALT (12-78) U/L Alkaline Phosphatase (45-117) U/L Troponin I (0-0.045) ng/ml Total Protein (6.4-8.2) gm/dl Albumin (3.4-5.0) gm/dl Globulin (2.5-4.0) gm/dl Albumin/Globulin Ratio (0.9-2) Blood Type A Negative Antibody Screen POSITIVE A Antibody Identification Pending Antibody ID Comment Pending Supervising Physician Co-Signing Physician Notes Attending addendum: I have physically seen this patient, have supervised the medical residents activities, and agree with the H&P unless as otherwise noted. Assessment and Plan: Rectal bleeding- Admit to monitored bed. Change earlier today from Coumadin to Xarelto. INR 1.7, is reversed with vitamin K 10 mg IV in the ED Serial H&H's, every 6 hours x3. Type and screen, with consent performed. History of diverticulosis/diverticulitis-continue Zosyn begin in ED. Consult gastroenterology. Atrial fibrillation/artificial heart valve- Need for chronic anticoagulation. Consult cardiology to help with resumption of anticoagulation post GI evaluation. Remainder orders and notations as noted. Resident Activity Tracking Resident Involvement: Resident Care Provided Care Provided: Adult Hospital Medicine
[2019-02-07] MEDS ORDERED: CARBOHYDRATES FOR HYPOGLYCEMIA PO PRN (22:36)
[2019-02-07] MEDS ORDERED: GLUCOSE 10 TABS/TUBE PO PRN (22:36)
[2019-02-07] MEDS ORDERED: GLUCAGON FOR INJ 1 MG VIAL SQ PRN (22:36)
[2019-02-07] MEDS ORDERED: DEXTROSE 50% 50 ML SYRINGE IV PRN (22:36)
[2019-02-07] MEDS ORDERED: GLUCOSE 40% GEL 15 GM TUBE PO PRN (22:36)
[2019-02-07] MEDS ORDERED: ACETAMINOPHEN 1000 MG/100 ML IV IV PRN (22:36)
[2019-02-07] MEDS: D5W AND 1/2NSS + 20MEQ KCL 20 MEQ/1,000 ML BAG IV SCH (23:22)
[2019-02-07] MEDS: FAMOTIDINE 20 MG in SYRINGE 3 ML IV SCH (23:22)
[2019-02-07] MEDS: INSULIN ASPART 100 UNITS/ML 3 ML PEN SC SCH (23:35)
[2019-02-07] MEDS: INSULIN GLARGINE SOLOSTAR 100 UNITS/ML 3 ML PEN SC SCH (23:35)
--- NOTE | 2019-02-07 23:39 | Emergency Department Note ---
Entered by Edmund Amin acting as a scribe for History of Present Illness General Chief complaint: Rectal Bleed Stated complaint: RECTAL BLEED - JUST ZARELTO TODAY Time Seen by Provider: 02/07/19 19:36 Source: patient Limitations: no limitations History of Present Illness Onset (ago): hour(s) (2.5) Location: abdomen Pain Consistency: + intermittent Quality: + other (bloody bowel movements) Treatments prior to arrival: other (Xarelto) The patient is a 88 year old male who presents to the Emergency Room with complaints of an intermittent rectal bleed starting 2.5 hours ago. He states he has abdominal pain. The patient states he had a heart valve replaced in 2000. He notes he has Atrial Fibrillation. He states he was taking Coumadin but started taking Xarelto today. He states he had 4 bloody bowel movements today. He notes he had a colonoscopy done by Dr. Cleaning. Home Medications Home Medications Medication Instructions Recorded Confirmed Type insulin aspar prot-insulin aspart 5 units SUBCUT .COMPLEX #15 ml 12/18/18 02/07/19 Rx 100 unit/mL (70-30) subcutaneous pen insulin glargine 100) 100 unit/mL 32 unit SUBCUT HS #10 ml 12/18/18 02/07/19 Rx subcutaneous solution montelukast 10 mg tablet 10 mg PO DAILY #30 tab 01/14/19 02/07/19 Rx folic acid 1 mg tablet 1 mg PO DAILY 02/06/19 02/07/19 History methotrexate sodium 2.5 mg tablet 12.5 mg PO DAILY tab 02/06/19 02/07/19 History rivaroxaban [Xarelto] 15 mg PO QAM 02/07/19 02/07/19 History Allergies Allergy/AdvReac Type Severity Reaction Status Date / Time glyburide Allergy Unknown PT NOT Verified 02/06/19 13:57 AWARE ezetimibe AdvReac Unknown ALL Verified 02/06/19 13:57 STATINS GIVE LEG CRAMPS metformin AdvReac Unknown DIARRHEA Verified 02/06/19 13:57 niacin AdvReac Unknown RED FLUSH Verified 02/06/19 13:57 tramadol AdvReac Unknown upset Verified 02/06/19 13:57 stomach HMG-CoA-R Inhibitors AdvReac Unknown ALL Uncoded 02/06/19 13:57 STATINS GIVE LEG CRAMPS Past Med/Surg History Medical History Allergic rhinitis (Acute) Anticoagulant long-term use (Acute) Anxiety (Acute) Aortic valve disorder (Acute) Arthralgia of multiple sites (Acute) CAD in [place] artery (Acute) Chronic kidney disease, stage III (moderate) (Acute) Constipation (Acute) Diabetes mellitus, type 2 IDDM Diverticulitis of colon (Acute) Dyslipidemia (Acute) Elevated prostate specific antigen (PSA) (Acute) Enlarged prostate without lower urinary tract symptoms (luts) (Acute) Fatty liver (Acute) Fecal urgency (Acute) Gait abnormality (Acute) Gastroesophageal reflux disease (Acute) Gastroparesis (Acute) Generalized muscle weakness (Acute) Gout (Acute) Hypercholesterolemia (Acute) Hyperlipidemia Idiopathic polyneuropathy (Acute) Incomplete emptying of bladder (Acute) Inguinal hernia (Acute) 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) Long-term use of immunosuppressant medication (Acute) Lower back pain (Acute) Lumbar disc disease (Chronic) Memory loss (Acute) Mitral regurgitation (Acute) Neoplasm of bladder (Acute) Neuroma (Acute) Non-compliant patient (Acute) Organic impotence (Acute) Paroxysmal atrial fibrillation (Acute) Polymyalgia rheumatica (Acute) Polyneuropathy (Acute) Poor balance (Acute) Positive CROW (antinuclear antibody) (Acute) Prostate nodule (Acute) Rheumatoid arthritis Sciatica (Acute) Seborrheic dermatitis (Acute) Spinal stenosis of lumbar region (Chronic) Steroid-induced osteoporosis (Acute) Temporal arteritis (Acute) TMJ (dislocation of temporomandibular joint) (Acute) Type 2 diabetes mellitus with neurologic complication (Acute) Unsteady gait (Acute) Vertigo (Acute) Vitamin D deficiency (Acute) Surgical History H/O heart bypass surgery (Resolved) History of adenoidectomy History of appendectomy History of cardiac cath 1999 History of cataract surgery RIGHT CATARACT History of cholecystectomy History of colonoscopy History of cystoscopy History of esophagogastroduodenoscopy (EGD) History of heart valve replacement AORTIC HEART VALVE, 1999. FOLLOWS WITH DR. WADE. History of herniorrhaphy INGUINAL History of tonsillectomy Family History Father Stroke syndrome Brother Stroke syndrome AAA (abdominal aortic aneurysm) Sister AAA (abdominal aortic aneurysm) Lung cancer Unknown Pancreatic cancer Social History Preferred Language: Divehi Communication Ability: Effective Visual Impairment: Limited Hearing Ability: Normal Requisition Approver Required: No Beliefs That Will Affect Care: None marital status: Current Living Situation: Spouse current occupational status: retired Other Information That Helps Us Care for You: No Feels Safe at Home: Yes Safety Concerns: Feels Safe At This Time Smoking Status: Light tobacco smoker Tobacco Type: cigars ; Do You Dip or Chew Tobacco: No ; Second Hand Exposure: No ; Tobacco Cessation Education Requested by Patient: No Hx Alcohol Use: No Hx Substance Use: No Seatbelt Use: always Review of Systems See HPI for pertinent positives & negatives. and A total of 10 systems reviewed and were otherwise negative Physical Exam Vital Signs Vital Signs - 24 hr 02/07/19 19:26 02/07/19 20:05 02/07/19 20:06 Temperature 36.6 C Temperature Source Oral Pulse Rate 114 H Pulse Rate [Bilateral] 101 H Pulse Rhythm [Bilateral] Irregular Respiratory Rate 18 20 Respiratory Effort / Characteristics Non-Labored Non-Labored Spontaneous Respiratory Depth Normal Normal Respiratory Pattern Blood Pressure [Left Arm] 157/95 H Blood Pressure Mean [Left Arm] 115 Blood Pressure Position [Left Arm] Lying Pulse Oximetry 92 99 97 Oxygen Delivery Method Room Air Room Air Room Air Sepsis Recent Fever Within 48 Hours No Sepsis Action Taken by Nursing No Action Required 02/07/19 21:14 Temperature Temperature Source Pulse Rate Pulse Rate [Bilateral] 87 Pulse Rhythm [Bilateral] Respiratory Rate 18 Respiratory Effort / Characteristics Non-Labored Spontaneous Respiratory Depth Normal Respiratory Pattern Regular Blood Pressure [Left Arm] 139/91 Blood Pressure Mean [Left Arm] 107 Blood Pressure Position [Left Arm] Lying Pulse Oximetry 93 Oxygen Delivery Method Room Air Sepsis Recent Fever Within 48 Hours Sepsis Action Taken by Nursing GENERAL: Awake, alert, well-appearing, in no acute distress HENT: Normocephalic, atraumatic. Oropharynx unremarkable. EYES: Normal conjunctiva. Sclera non-icteric. NECK: Supple. No nuchal rigidity. FROM. No JVD. RESPIRATORY: Clear to auscultation. CARDIAC: Regular rate, normal rhythm. Extremities warm and well perfused. Pulses equal. ABDOMEN: Soft, non-distended. No rebound or guarding. No masses. Minimally tender in LLQ. RECTAL: Bright red blood per rectum. MUSCULOSKELETAL: Chest examination reveals no tenderness. The back is symmetrical on inspection without obvious abnormality. There is no CVA tenderness to palpation. No joint edema. LOWER EXTREMITIES: Calves are equal size bilaterally and non-tender. No edema. No discoloration. NEURO: Normal sensorium. No sensory or motor deficits noted. SKIN: No rash or jaundice noted. Course Course 1937: The patient was evaluated in room C7, and a complete history and physical examination were performed. 1945: I spoke with Dr. Koroma - Gastroenterology. He recommends admitting the patient and states he will evaluate the patient in the morning. 2007: I spoke with Dr. Dixon - Pathology. She recommends giving the patient 10 mg Vitamin K IV. 2021: I discussed the patient's case [facility] He will evaluate the patient for further management Administered Medications Potassium Chloride/Dextrose/Sod Cl (D5w And 1/2nss + 20meq Kcl) 20 meq in 1,000 mls @ 100 mls/hr IV .Q10H TYLER Stop: 03/09/19 22:35 Last Admin: 02/07/19 23:22 Dose: 100 mls/hr Documented by: [id number] Famotidine 20 mg/ Syringe 5 mls @ 2.5 mls/min IV Q12 TYLER Stop: 03/09/19 22:35 Last Admin: 02/07/19 23:22 Dose: 2.5 mls/min Documented by: [id number] Discontinued Medications Piperacillin Sod/Tazobactam Sod (Zosyn) 4.5 gm in 120 mls @ 240 mls/hr IV NOW ONE Stop: 02/07/19 21:50 Last Admin: 02/07/19 22:08 Dose: 240 mls/hr Documented by: [id number] Daptomycin 492 mg/ Syringe 9.84 mls @ 4.92 mls/min IV NOW ONE; Protocol Stop: 02/07/19 21:22 Last Admin: 02/07/19 22:08 Dose: 4.92 mls/min Documented by: [id number] Ioversol (Optiray 320 100ml) 92 ml IV ONCE PRN PRN Reason: Interaction Checking Stop: 02/11/19 20:18 Last Admin: 02/07/19 20:19 Dose: 92 ml Documented by: [id number] Phytonadione (Mephyton) 10 mg PO NOW STA Stop: 02/07/19 20:11 Last Admin: 02/07/19 20:36 Dose: 10 mg Documented by: [id number] Critical Care Time I have personally spent greater than 30 minutes of critical care time in the direct management of this patient. This includes bedside care, interpretation of diagnostic studies, and testing, discussion with consultants, patient, and family members, and other required patient management activities. This 30 minutes is in excess of all separately billable procedures. Medical Decision Making Differential Diagnosis Differential diagnosis includes etiologies such as diverticulosis, AVM, coagulopathy, colitis, inflammatory bowel disease, malignancy, Sofi-Lorenzana tear, esophagitis, peptic ulcer disease, variceal bleed, gastritis, epistaxis, fissure, hemorrhoids, as well as others were entertained. Medical Records Attestation: I reviewed the patient's medical records. Home Medications Current Medication List: was personally reviewed by me Laboratory Data Attestation: I reviewed the patient's lab results. Result diagrams: 02/07/19 19:52 02/07/19 19:52 Lab Results 02/07/19 02/07/19 02/07/19 Range/Units 19:49 19:52 19:52 WBC 7.17 (4.8-10.8) K/uL RBC 4.16 L (4.7-6.1) M/uL Hgb 13.6 L (14.0-18.0) g/dL POC Hgb (14.0-18.0) g/dl Hct 39.4 L (42-52) % POC Hct (42-52) % MCV 94.7 (80-100) fL MCH 32.7 (25-34) pg MCHC 34.5 (32-36) g/dL RDW Std Deviation 45.4 (36.4-46.3) fL RDW Coeff of Zita 13.2 (11.5-14.5) % Plt Count 229 (130-400) K/uL MPV 10.0 (7.4-10.4) fL Immature Gran % (Auto) 1.0 % Neut % (Auto) 57.6 % Lymph % (Auto) 30.5 % Moore % (Auto) 7.7 % Eos % (Auto) 2.9 % Baso % (Auto) 0.3 % Immature Gran # (Auto) 0.07 H (0.00-0.02) K/uL Neut # (Auto) 4.13 (1.4-6.5) K/uL Lymph # (Auto) 2.19 (1.2-3.4) K/uL Moore # (Auto) 0.55 (0.11-0.59) K/uL Eos # (Auto) 0.21 (0-0.5) K/uL Baso # (Auto) 0.02 (0-0.2) K/uL PT 16.9 H (9.0-12.0) Seconds INR 1.7 H (0.9-1.1) APTT 30.5 (21.0-31.0) Seconds PTT Ratio 1.1 Heparin Anti-Xa, LM Wt (< 0.10) IU/ML POC Sodium (135-144) mEq/L Sodium (136-145) mmol/L POC Potassium (3.3-5.0) mEq/L Potassium (3.5-5.1) mmol/L POC Chloride (101-112) mEq/L Chloride (98-107) mmol/L Carbon Dioxide (21-32) mmol/L POC Total CO2 (24-31) mEq/l Anion Gap (3-11) POC Anion Gap (16-25) mmol/L POC BUN (7-18) mg/dl BUN (7-18) mg/dl Creatinine (0.6-1.4) mg/dl POC Creatinine (0.6-1.3) mg/dl Est Cr Clr Drug Dosing Est GFR ( Amer) Est GFR (Non-Af Amer) BUN/Creatinine Ratio (10-20) Glucose (70-99) mg/dl POC Glucose (other) (70-99) mg/dl Calcium (8.5-10.1) mg/dl POC Ioniz Calcium Sabra (1.12-1.32) mmol/l Total Bilirubin (0.2-1) mg/dl AST (15-37) U/L ALT (12-78) U/L Alkaline Phosphatase (45-117) U/L Troponin I (0-0.045) ng/ml Total Protein (6.4-8.2) gm/dl Albumin (3.4-5.0) gm/dl Globulin (2.5-4.0) gm/dl Albumin/Globulin Ratio (0.9-2) Blood Type A Negative Antibody Screen POSITIVE A 02/07/19 02/07/19 02/07/19 Range/Units 19:52 19:52 20:00 WBC (4.8-10.8) K/uL RBC (4.7-6.1) M/uL Hgb (14.0-18.0) g/dL POC Hgb 13.3 L (14.0-18.0) g/dl Hct (42-52) % POC Hct 39 L (42-52) % MCV (80-100) fL MCH (25-34) pg MCHC (32-36) g/dL RDW Std Deviation (36.4-46.3) fL RDW Coeff of Zita (11.5-14.5) % Plt Count (130-400) K/uL MPV (7.4-10.4) fL Immature Gran % (Auto) % Neut % (Auto) % Lymph % (Auto) % Moore % (Auto) % Eos % (Auto) % Baso % (Auto) % Immature Gran # (Auto) (0.00-0.02) K/uL Neut # (Auto) (1.4-6.5) K/uL Lymph # (Auto) (1.2-3.4) K/uL Moore # (Auto) (0.11-0.59) K/uL Eos # (Auto) (0-0.5) K/uL Baso # (Auto) (0-0.2) K/uL PT (9.0-12.0) Seconds INR (0.9-1.1) APTT (21.0-31.0) Seconds PTT Ratio Heparin Anti-Xa, LM Wt 1.29 (< 0.10) IU/ML POC Sodium 140 (135-144) mEq/L Sodium 140 (136-145) mmol/L POC Potassium 3.7 (3.3-5.0) mEq/L Potassium 3.7 (3.5-5.1) mmol/L POC Chloride 104 (101-112) mEq/L Chloride 106 (98-107) mmol/L Carbon Dioxide 27 (21-32) mmol/L POC Total CO2 27 (24-31) mEq/l Anion Gap 7.0 (3-11) POC Anion Gap 14.0 L (16-25) mmol/L POC BUN 22 H (7-18) mg/dl BUN 22 H (7-18) mg/dl Creatinine 1.58 H (0.6-1.4) mg/dl POC Creatinine 1.4 H (0.6-1.3) mg/dl Est Cr Clr Drug Dosing Not Reportable Est GFR ( Amer) 45.2 Est GFR (Non-Af Amer) 39.0 BUN/Creatinine Ratio 13.8 (10-20) Glucose 232 H (70-99) mg/dl POC Glucose (other) 230 H (70-99) mg/dl Calcium 9.7 (8.5-10.1) mg/dl POC Ioniz Calcium Sabra 1.21 (1.12-1.32) mmol/l Total Bilirubin 0.3 (0.2-1) mg/dl AST 20 (15-37) U/L ALT 25 (12-78) U/L Alkaline Phosphatase 89 (45-117) U/L Troponin I < 0.015 (0-0.045) ng/ml Total Protein 7.6 (6.4-8.2) gm/dl Albumin 4.0 (3.4-5.0) gm/dl Globulin 3.6 (2.5-4.0) gm/dl Albumin/Globulin Ratio 1.1 (0.9-2) Blood Type Antibody Screen Imaging Data Radiologist's Impression: Radiology results as stated below per my review and the radiologist's interpretation: CT abd pelvis IV con only CLINICAL HISTORY: 88 years-old Male presenting with Pt c/o abd pain hematochezia. TECHNIQUE: Multidetector CT of the abdomen and pelvis was performed after the administration of intravenous contrast. IV contrast: 92 mL of Optiray 320. One or more dose lowering techniques were used consistent with the principles of ALARA (as low as reasonably achievable), including automatic exposure control, mA or kV adjustment to individual patient size, and/or use of iterative reconstruction. COMPARISON: None. CT DOSE (mGy.cm): The estimated cumulative dose is 588.15 mGy.cm. FINDINGS: Director Corporate Communications topogram: Cardiomegaly. Sternotomy wires. Lung bases: Top normal heart size. Coronary artery, aortic valve, and mitral annular calcification. No pericardial or pleural effusion. No focal infiltrate or nodule at the lung bases. Liver: Normal morphology. Density suggestive of hepatic steatosis. No focal lesion. Patent hepatic vasculature. Biliary: No intrahepatic or extrahepatic biliary ductal dilatation. Normal gallbladder. Pancreas: Moderate parenchymal atrophy. Spleen: Normal. Adrenal glands: Normal. Kidneys and ureters: Normal. No hydronephrosis. Bladder: Mild circumferential bladder wall thickening. Pelvic organs: A TURP defect may be present in the prostate. The prostate is mildly enlarged. Bowel: Diverticulosis of the proximal to mid sigmoid colon and distal descending colon. There is focal wall thickening with trace if any pericolonic inflammatory change of the junction of the descending and sigmoid colon. Peritoneal cavity: No free fluid or intraperitoneal gas. Lymph nodes: No enlarged lymph nodes in the abdomen or pelvis. Vasculature: Atherosclerosis of the normal caliber abdominal aorta. IVC patent. Abdominal wall: Normal. Musculoskeletal: Degenerative changes of the spine. Median sternotomy wires. IMPRESSION: 1. Diverticulosis coli with focal wall thickening at the junction of the descen ding and sigmoid colon. 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 Diverticulosis would be the expected cause for the patient's hematochezia and is more likely to occur in the absence of diverticulitis. 2. Hepatic steatosis. 3. Status post cholecystectomy. Electronically signed by: Darnell Hopson M.D. 02/07/2019 8:33 PM ECG Data Attestation: I personally reviewed and interpreted this ECG as follows: Indication: + other (GI bleed) Rate (beats per minute): 105 Rhythm: + atrial fibrillation (with RVR) ECG Intervals/blocks: + Normal QT-c (QTc is 454) ECG ST segments: no ST depression and no ST elevation Blood Pressure Blood Pressure Findings: Elevated blood pressure Blood Pressure Disposition: Referred to patients primary care provider MDM Narrative This is an 88-year-old male who presents the emergency department complaining of rectal bleeding. The patient has had 4 episodes of rectal bleeding tonight. On my physical examination he has bright red blood per rectum. Patient is unable to tell me why he is on methotrexate or why he is on Eliquis. Type and screen was obtained the patient's hemoglobin was found to be 13. I did discuss the case with the smoking tobacco cutter operator on-call who felt that the patient could be safely admitted. I also discussed the case with the modern languages professor who asked that the patient received 10 of vitamin K. Patient's INR is 1.7. CAT scan the abdomen pelvis is concerning for diverticulitis. Patient was started on broad- spectrum antibiotics including Zosyn as well as daptomycin. Patient was in agreement with the treatment plan. Impression & Plan Acute diverticulitis, Anticoagulant long-term use, Aortic valve disorder, Chronic kidney disease, stage III (moderate), Permanent atrial fibrillation Discharge Plan Visit Data *Final* Discharge Date/Time: 02/07/19 22:23 Chief Complaint: Rectal Bleed Stated Complaint: RECTAL BLEED - JUST ZARELTO TODAY ED Provider: Tom Flowers Discharge Problem: Acute diverticulitis, Anticoagulant long-term use, Aortic valve disorder, Chronic kidney disease, stage III (moderate), Permanent atrial fibrillation Patient Disposition: Admitted As Inpatient Discharge Instructions Interventions: ED Discharge Assessment Last Done: 02/07/19 22:23 The scribe's documentation has been prepared under my direction and personally reviewed by me in its entirety. I confirm that the note above accurately reflects all work, treatment, procedures, and medical decision making performed by me.
[2019-02-07 23:44] LABS: Hematocrit (blood only) 35.1 % (42-52); Hemoglobin 12.1 g/dL (14.0-18.0)
[2019-02-08] MEDS: PIPERACILLIN/TAZOBACTAM 3.375 GM in DEXTROSE 5% 100 ML IV SCH ×2 (04:16→11:33)
[2019-02-08] MEDS: INSULIN ASPART 100 UNITS/ML 3 ML PEN SC SCH ×3 (06:20→16:58)
[2019-02-08] MEDS: D5W AND 1/2NSS + 20MEQ KCL 20 MEQ/1,000 ML BAG IV SCH (08:27)
[2019-02-08] MEDS: INSULIN GLARGINE SOLOSTAR 100 UNITS/ML 3 ML PEN SC SCH ×2 (08:27→21:46)
[2019-02-08] MEDS: FAMOTIDINE 20 MG in SYRINGE 3 ML IV SCH (08:29)
[2019-02-08 09:24] LABS: BUN Creatinine Ratio 12.9 (10-20); Calcium 8.9 mg/dl (8.5-10.1); Creatinine Clr Calc Pharmacy 35.6 ml/min; Est GFR (African American) 50.6; Est GFR (Non-African American) 43.7; Potassium 4.1 mmol/L (3.5-5.1)
[2019-02-08 10:01] LABS: Hematocrit (blood only) 32.1 % (42-52); Hemoglobin 11.2 g/dL (14.0-18.0)
--- NOTE | 2019-02-08 10:24 | Gastrointestinal Consultation ---
Date of Consultation February 08, 2019 Assessment & Plan (1) Rectal bleeding: Bleeding as anticipated appears to have stopped, in line with a diagnosis of diverticular bleed. As he recently had a colonoscopy, any other pathology is unlikely. If there is persistent bleeding we will scope him after a prep. No prep given yesterday. If no additional bleeding, only supportive care. Ok with advancing to clear diet and moving him out of intensive care. Note increase creatinine, recheck after hydration. Patient and declines any knowledge of CKD though listed among chronic issues. Today Hb is pending, please alert me is there is a drastic drop. He does have good color suggesting Hb to be not very low. Hold anticoagulation for couple days if ok with cardiology, if risk of thromboemolism is high ok to restart tomorrow. Present on Admission?: Yes History of Present Illness Reason for Consultation: hematochezia Requesting Physician: Conner Attending Physician: Jesus Prieto MD History of Present Illness Bloody bms at home, 2 in the ER. Per ER doc all blood. No other symptoms. Patient was doing well. Good appetite. No diarrhea.No fever. No nausea. Recent switch to Xaralto from coumadin, the last dose of which was the day before. Allergies Allergy/AdvReac Type Severity Reaction Status Date / Time glyburide Allergy Unknown PT NOT Verified 02/06/19 13:57 AWARE ezetimibe AdvReac Unknown ALL Verified 02/06/19 13:57 STATINS GIVE LEG CRAMPS metformin AdvReac Unknown DIARRHEA Verified 02/06/19 13:57 niacin AdvReac Unknown RED FLUSH Verified 02/06/19 13:57 tramadol AdvReac Unknown upset Verified 02/06/19 13:57 stomach HMG-CoA-R Inhibitors AdvReac Unknown ALL Uncoded 02/06/19 13:57 STATINS GIVE LEG CRAMPS Home Medications Home Medications Medication Instructions Recorded Confirmed Type insulin aspar prot-insulin aspart 5 units SUBCUT .COMPLEX #15 ml 12/18/18 02/07/19 Rx 100 unit/mL (70-30) subcutaneous pen insulin glargine 100) 100 unit/mL 32 unit SUBCUT HS #10 ml 12/18/18 02/07/19 Rx subcutaneous solution montelukast 10 mg tablet 10 mg PO DAILY #30 tab 01/14/19 02/07/19 Rx folic acid 1 mg tablet 1 mg PO DAILY 02/06/19 02/07/19 History methotrexate sodium 2.5 mg tablet 12.5 mg PO DAILY tab 02/06/19 02/07/19 History rivaroxaban [Xarelto] 15 mg PO QAM 02/07/19 02/07/19 History Patient History Medical History Allergic rhinitis (Acute) Anticoagulant long-term use (Acute) Anxiety (Acute) Aortic valve disorder (Acute) Arthralgia of multiple sites (Acute) CAD in [place] artery (Acute) Chronic kidney disease, stage III (moderate) (Acute) Constipation (Acute) Diabetes mellitus, type 2 IDDM Diverticulitis of colon (Acute) Dyslipidemia (Acute) Elevated prostate specific antigen (PSA) (Acute) Enlarged prostate without lower urinary tract symptoms (luts) (Acute) Fatty liver (Acute) Fecal urgency (Acute) Gait abnormality (Acute) Gastroesophageal reflux disease (Acute) Gastroparesis (Acute) Generalized muscle weakness (Acute) Gout (Acute) Hypercholesterolemia (Acute) Hyperlipidemia Idiopathic polyneuropathy (Acute) Incomplete emptying of bladder (Acute) Inguinal hernia (Acute) 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 (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) Long-term use of immunosuppressant medication (Acute) Lower back pain (Acute) Lumbar disc disease (Chronic) Memory loss (Acute) Mitral regurgitation (Acute) Neoplasm of bladder (Acute) Neuroma (Acute) Non-compliant patient (Acute) Organic impotence (Acute) Paroxysmal atrial fibrillation (Acute) Polymyalgia rheumatica (Acute) Polyneuropathy (Acute) Poor balance (Acute) Positive CROW (antinuclear antibody) (Acute) Prostate nodule (Acute) Rheumatoid arthritis Sciatica (Acute) Seborrheic dermatitis (Acute) Spinal stenosis of lumbar region (Chronic) Steroid-induced osteoporosis (Acute) Temporal arteritis (Acute) TMJ (dislocation of temporomandibular joint) (Acute) Type 2 diabetes mellitus with neurologic complication (Acute) Unsteady gait (Acute) Vertigo (Acute) Vitamin D deficiency (Acute) Surgical History H/O heart bypass surgery (Resolved) History of adenoidectomy History of appendectomy History of cardiac cath 2000 History of cataract surgery RIGHT CATARACT History of cholecystectomy History of colonoscopy History of cystoscopy History of esophagogastroduodenoscopy (EGD) History of heart valve replacement AORTIC HEART VALVE, 1999. FOLLOWS WITH DR. WADE. History of herniorrhaphy INGUINAL History of tonsillectomy Family History Father Stroke syndrome Brother Stroke syndrome AAA (abdominal aortic aneurysm) Sister AAA (abdominal aortic aneurysm) Lung cancer Unknown Pancreatic cancer Social History Preferred Language: Albanian Communication Ability: Effective Visual Impairment: Limited Hearing Ability: Normal Trust Administrative Assistant Required: No Beliefs That Will Affect Care: None marital status: Current Living Situation: Spouse current occupational status: retired Other Information That Helps Us Care for You: No Feels Safe at Home: Yes Safety Concerns: Feels Safe At This Time Smoking Status: Light tobacco smoker Tobacco Type: cigars ; Do You Dip or Chew Tobacco: No ; Second Hand Exposure: No ; Tobacco Cessation Education Requested by Patient: No Hx Alcohol Use: No Hx Substance Use: No Seatbelt Use: always Review of Systems Constitutional: no fever, no weakness, no anorexia and no weight loss Respiratory: no dyspnea and no dyspnea on exertion Cardiovascular: no chest pain Gastrointestinal: + cramping; no abdominal pain, no nausea, no vomiting, no hematemesis, no change in bowel habits and no diarrhea/loose stools Integumentary: no rash and no change in skin color Neurologic: no dizziness Endocrine: no fatigue Physical Exam Eyes: no palor, moist conjunctiva Gastrointestinal (Abdomen): Inspection/Auscultation: abdomen normal to inspection Percussion/Palpation: abdomen soft; abdomen nontender, no abdominal mass and no ascites Just had a bowel movement, pellet shaped stool, few pieces with some old blood clots. Scant amount. Musculoskeletal: Extremities: extremities normal to inspection Gait: normal gait Skin: no rashes, warm and dry Psychiatric: A+Ox3, euthymic affect Results & Data Vital Signs (Past 12 Hours) Vital Signs Temp Pulse Pulse Resp BP BP BP 02/08/19 07:01 36.9 C 89 20 113/76 02/08/19 03:24 37.1 C 93 H 18 114/73 02/07/19 22:42 84 02/07/19 22:37 36.6 C 90 135/79 02/07/19 22:23 84 18 136/93 Pulse Ox 02/08/19 07:01 97 02/08/19 03:24 95 02/07/19 22:42 02/07/19 22:37 100 02/07/19 22:23 94 Laboratory Results no white count. slight drop in HCT. Today's labs pending, anticipate some more drop. BUN/CR increased. Diagnostic Findings CT relatively normal except for diverticulosis. Some thickening of top of sigmoid area suspected.
--- NOTE | 2019-02-08 12:38 | Hospitalist Progress Note ---
Date of Service February 08, 2019 Assessment & Plan (1) Rectal bleeding: Likely diverticular bleed, as he has known diverticulosis on a colonoscopy from a few months ago. - Seen by GI on 02/08 - Bleeding improving. Hgb is doing ok, though trickling down. - Conservative care at this point. Discussed with Dr. Prabhakar. Hold anticoagulation until he sees him in the clinic. (2) Permanent atrial fibrillation: Rate-controlled at present. - Hold anticoagulation until seen in the office by Dr. Prabhakar (3) Type 2 diabetes mellitus with neurologic complication: On insulin as outpatient. A1c was 8.1% in 11/2018. - Continue long-acting and sliding scale insulin (4) Hypertension: BP presently 122/70. HTN listed in his chart, but no HTN meds noted. - Monitor (5) Temporal arteritis: No vision issues reported. - Continue MTX when able (I presumed this is for the temporal arteritis, though I am not sure. I don't see MTX referenced in any recent outpatient visits.) (6) H/O heart bypass surgery: Bioprosthetic valve in 2000. - No inpatient concerns (7) DVT prophylaxis: SCDs & early ambulation - Avoiding chemoprophylaxis for GI bleed Subjective Doing well today. Still with some small BMs that are bloody. Reports no fevers/chills, chest pain, shortness of breath, abdominal pain, nausea, or vomiting. Physical Exam Constitutional: WD/WN, vitals as above Eyes: EOM intact bilaterally; no conjunctival abnormality ENMT: external ear and nose normal, oropharynx normal Neck: trachea midline, no thyromegaly normal visual inspection Respiratory: normal respiratory effort, lungs clear to auscultation no r espiratory distress Cardiovascular: RRR, no murmur, no edema Gastrointestinal (Abdomen): Inspection/Auscultation: abdomen normal to inspection; abdomen not distended Musculoskeletal: no cyanosis or clubbing, extremities motor strength 5/5 Skin: no rashes, warm and dry Neurologic: moves all extremities and awake Psychiatric: Orientation: alert, oriented to person and cooperative Results & Data Vital Signs (Past 12 Hours) Vital Signs Temp Pulse Resp BP BP Pulse Ox 02/08/19 12:03 36.3 C L 71 18 122/70 98 02/08/19 07:01 36.9 C 89 20 113/76 97 02/08/19 03:24 37.1 C 93 H 18 114/73 95 PG Care Time/CCT Total # of Minutes Spent Total Time Spent with Patient: Total time spent is greater than 50% in coordination of care (as documented) at patient's floor/unit and/or counseling patient:
[2019-02-08] MEDS ORDERED: Nursing to Pharmacy Communication ONE (21:45)
--- NOTE | 2019-02-09 01:31 | Billing Data ---
Date of Service February 09, 2019 Coding Level of Care Code 10048 Initial Inpt Care Lvl 3
[2019-02-09 06:30] LABS: Hematocrit (blood only) 31.8 % (42-52); Hemoglobin 10.8 g/dL (14.0-18.0); Mean Corpuscular Hemoglobin 31.9 pg (25-34); Mean Corpuscular Volume 93.8 fL (80-100); Mean Platelet Volume 10.1 fL (7.4-10.4); Platelet Count 183 K/uL (130-400); RDW Coefficient of Variation 13.6 % (11.5-14.5); RDW Standard Deviation 46.4 fL (36.4-46.3); Red Blood Count 3.39 M/uL (4.7-6.1); White Blood Count 4.93 K/uL (4.8-10.8)
[2019-02-09 07:05] LABS: BUN Creatinine Ratio 9.9 (10-20); Calcium 8.5 mg/dl (8.5-10.1); Est GFR (African American) 47.8; Est GFR (Non-African American) 41.2; Magnesium 2.1 mg/dl (1.8-2.4); Phosphorus 2.5 mg/dl (2.5-4.9)
[2019-02-09] MEDS: INSULIN ASPART 100 UNITS/ML 3 ML PEN SC SCH ×4 (08:23→20:49)
[2019-02-09] MEDS: INSULIN GLARGINE SOLOSTAR 100 UNITS/ML 3 ML PEN SC SCH ×2 (08:24→20:48)
[2019-02-09] MEDS ORDERED: IRON SUCROSE 200 MG in 0.9 % SODIUM CHLORIDE 100 ML IV STA (08:25)
--- NOTE | 2019-02-09 11:54 | Gastroenterology Progress Note ---
Date of Service February 09, 2019 Assessment & Plan (1) Rectal bleeding: Bleeding as anticipated appears to have stopped, in line with a diagnosis of diverticular bleed. He may still expel some blood clots stuck in the diverticula over time. Has some loose stools. He looks ready to be discharged. If risk of thromboembolism is high ok to restart anticoagulation. He did not have diverticulitis. Subjective No complaints, eating well, no additional bleeding. Physical Exam Gastrointestinal (Abdomen): Percussion/Palpation: abdomen soft; abdomen nontender Results & Data Vital Signs (Past 12 Hours) Vital Signs Temp Pulse Pulse Resp BP BP Pulse Ox 02/09/19 07:38 36.7 C 99 H 18 105/69 93 02/09/19 07:31 91 H 02/09/19 04:00 36.6 C 88 18 99/54 L 95 02/09/19 00:00 77
--- NOTE | 2019-02-09 16:18 | Hospitalist Progress Note ---
Date of Service February 09, 2019 Assessment & Plan (1) Rectal bleeding: Likely diverticular bleed, as he has known diverticulosis on a colonoscopy from a few months ago. - Seen by GI on 02/08 - Bleeding improving. Hgb is doing ok, though trickling down. - Conservative care at this point. Discussed with Dr. Prabhakar. Hold anticoagulation until he sees him in the clinic. - On 02/09, hgb is still trending down. Patient and feel more comfortable staying another night which I don't disagree with. Maroon stools likely represent old blood, but will get AM hgb to be sure. (2) Permanent atrial fibrillation: Self rate-controlled at present (i.e. no meds needed). - Hold anticoagulation until seen in the office by Dr. Prabhakar (3) Type 2 diabetes mellitus with neurologic complication: On insulin as outpatient. A1c was 8.1% in 11/2018. - Continue long-acting and sliding scale insulin - Blood sugars good today. (4) Hypertension: BP presently 122/70. HTN listed in his chart, but no HTN meds noted. - Monitor - Stable today. (5) Temporal arteritis: No vision issues reported. - Continue MTX when able (I presumed this is for the temporal arteritis, though I am not sure. I don't see MTX referenced in any recent outpatient visits.) (6) H/O heart bypass surgery: Bioprosthetic valve in 2000. - No inpatient concerns (7) DVT prophylaxis: SCDs & early ambulation - Avoiding chemoprophylaxis for GI bleed Subjective Feeling ok, but still having maroon stools. Reports no fevers/chills, chest pain, shortness of breath, abdominal pain, nausea, or vomiting. Physical Exam Constitutional: WD/WN, vitals as above Eyes: EOM intact bilaterally; no conjunctival abnormality ENMT: external ear and nose normal, oropharynx normal Neck: trachea midline, no thyromegaly normal visual inspection Respiratory: normal respiratory effort, lungs clear to auscultation no respiratory distress Cardiovascular: RRR, no murmur, no edema Gastrointestinal (Abdomen): Inspection/Auscultation: abdomen normal to inspection; abdomen not distended Musculoskeletal: no cyanosis or clubbing, extremities motor strength 5/5 Skin: no rashes, warm and dry Neurologic: moves all extremities and awake Psychiatric: Orientation: alert, oriented to person and cooperative Results & Data Vital Signs (Past 12 Hours) Vital Signs Temp Pulse Pulse Resp BP BP Pulse Ox 02/09/19 15:16 36.8 C 73 16 103/67 95 02/09/19 11:59 36.6 C 87 18 110/65 97 02/09/19 07:38 36.7 C 99 H 18 105/69 93 02/09/19 07:31 91 H PG Care Time/CCT Total # of Minutes Spent Total Time Spent with Patient: Total time spent is greater than 50% in coordination of care (as documented) at patient's floor/unit and/or counseling patient:
[2019-02-09] MEDS ORDERED: ACETAMINOPHEN 325 MG TAB PO PRN (17:48)
[2019-02-10 05:55] LABS: Hematocrit (blood only) 31.6 % (42-52); Hemoglobin 10.7 g/dL (14.0-18.0); Mean Corpuscular Hemoglobin 32.2 pg (25-34); Mean Corpuscular Hgb Conc 33.9 g/dL (32-36); Mean Corpuscular Volume 95.2 fL (80-100); Mean Platelet Volume 9.8 fL (7.4-10.4); Platelet Count 187 K/uL (130-400); RDW Coefficient of Variation 13.2 % (11.5-14.5); RDW Standard Deviation 45.2 fL (36.4-46.3); Red Blood Count 3.32 M/uL (4.7-6.1); White Blood Count 5.38 K/uL (4.8-10.8)
[2019-02-10 06:22] LABS: BUN Creatinine Ratio 12.5 (10-20); Calcium 8.7 mg/dl (8.5-10.1); Creatinine Clr Calc Pharmacy 33.1 ml/min; Est GFR (African American) 46.3; Est GFR (Non-African American) 39.9; Potassium 4.1 mmol/L (3.5-5.1)
[2019-02-10 07:12] VITALS: BP 122/78; PULSE 104; TEMP 97.9; O2SAT 90
[2019-02-10] MEDS: INSULIN GLARGINE SOLOSTAR 100 UNITS/ML 3 ML PEN SC SCH (08:42)
[2019-02-10] MEDS: INSULIN ASPART 100 UNITS/ML 3 ML PEN SC SCH ×2 (08:46→12:43)
[2019-02-10] MEDS ORDERED: FOLIC ACID 1 MG TAB PO SCH (09:00)
[2019-02-10] MEDS ORDERED: MONTELUKAST SODIUM 10 MG TABLET PO SCH (09:00)
--- NOTE | 2019-02-10 09:53 | Consultation ---
Date of Consultation February 10, 2019 Assessment & Plan (1) Rectal bleeding: Contacted by Dr. Flowers, ED [facility] at 20:08 on 02/07/19 regarding this 88 year old man with a history of bioprosthetic aortic valve, previously on Coumadin but started on Xarelto 15 mg today with a singular dose taken this AM, unknown exact time. The patient reportedly had 4 bloody bowel movements at home, came to the ED and had an additional 2 bowel movements containing bright red blood. At the time of the phone contact, his Hemoglobin level was 13.6 g/dl (unchanged from an May value of 13.7 gm/dl) and he had no hemodynamic instability. An INR had been drawn but not yet reported. As the patient was hemodynamically stable and there had not been a significant alteration in the H/H, I recommended that he be given 10 mg IV vitamin K to reverse the INR (Standard of care is to wait until the INR is less than 2 before beginning a DOAC and I did not expect it to be elevated, but in the event it was, it would be corrected by vitamin K). As the dose was taken over 4 hours ago, I did not recommend activated charcoal. I did not recommend KCENTRA at this time as it had likely been 12 hours since his dose, he was a) hemodynamically stable b) without change in hemodynamic parameters and c) this did not appear to be a life or organ threatening event at this time. I did instruct Dr. Flowers to contact me and to tell his care team to contact me should his condition change. Present on Admission?: Yes History of Present Illness Attending Physician: Randy Ascencio Allergies Allergy/AdvReac Type Severity Reaction Status Date / Time glyburide Allergy Unknown PT NOT Verified 02/06/19 13:57 AWARE atorvastatin [From Lipitor] AdvReac Mild Muscle Pain Verified 02/09/19 17:56 lovastatin [From Mevacor] AdvReac Mild Muscle Pain Verified 02/09/19 17:56 simvastatin [From Zocor] AdvReac Mild Muscle Pain Verified 02/09/19 17:56 [id number] Reductase AdvReac Mild Muscle Pain Verified 02/09/19 17:52 Inhibitor ezetimibe AdvReac Unknown ALL Verified 02/06/19 13:57 STATINS GIVE LEG CRAMPS metformin AdvReac Unknown DIARRHEA Verified 02/06/19 13:57 niacin AdvReac Unknown RED FLUSH Verified 02/06/19 13:57 tramadol AdvReac Unknown upset Verified 02/06/19 13:57 stomach Home Medications Home Medications Medication Instructions Recorded Confirmed Type insulin aspar prot-insulin aspart 5 units SUBCUT .COMPLEX #15 ml 12/18/18 02/07/19 Rx 100 unit/mL (70-30) subcutaneous pen insulin glargine 100) 100 unit/mL 32 unit SUBCUT HS #10 ml 12/18/18 02/07/19 Rx subcutaneous solution montelukast 10 mg tablet 10 mg PO DAILY #30 tab 01/14/19 02/07/19 Rx folic acid 1 mg tablet 1 mg PO DAILY 02/06/19 02/07/19 History methotrexate sodium 2.5 mg tablet 12.5 mg PO DAILY tab 02/06/19 02/07/19 History rivaroxaban [Xarelto] 15 mg PO QAM 02/07/19 02/07/19 History Patient History Medical History Allergic rhinitis (Acute) Anticoagulant long-term use (Acute) Anxiety (Acute) Aortic valve disorder (Acute) Arthralgia of multiple sites (Acute) CAD in [place] artery (Acute) Chronic kidney disease, stage III (moderate) (Acute) Constipation (Acute) Diabetes mellitus, type 2 IDDM Diverticulitis of colon (Acute) Dyslipidemia (Acute) Elevated prostate specific antigen (PSA) (Acute) Enlarged prostate without lower urinary tract symptoms (luts) (Acute) Fatty liver (Acute) Fecal urgency (Acute) Gait abnormality (Acute) Gastroesophageal reflux disease (Acute) Gastroparesis (Acute) Generalized muscle weakness (Acute) Gout (Acute) Hypercholesterolemia (Acute) Hyperlipidemia Idiopathic polyneuropathy (Acute) Incomplete emptying of bladder (Acute) Inguinal hernia (Acute) half-way (current) use of systemic steroids (Acute) Long-term use of immunosuppressant medication (Acute) Lower back pain (Acute) Lumbar disc disease (Chronic) Memory loss (Acute) Mitral regurgitation (Acute) Neoplasm of bladder (Acute) Neuroma (Acute) Non-compliant patient (Acute) Organic impotence (Acute) Paroxysmal atrial fibrillation (Acute) Polymyalgia rheumatica (Acute) Polyneuropathy (Acute) Poor balance (Acute) Positive CROW (antinuclear antibody) (Acute) Prostate nodule (Acute) Rheumatoid arthritis Sciatica (Acute) Seborrheic dermatitis (Acute) Spinal stenosis of lumbar region (Chronic) Steroid-induced osteoporosis (Acute) Temporal arteritis (Acute) TMJ (dislocation of temporomandibular joint) (Acute) Type 2 diabetes mellitus with neurologic complication (Acute) Unsteady gait (Acute) Vertigo (Acute) Vitamin D deficiency (Acute) Surgical History H/O heart bypass surgery (Resolved) History of adenoidectomy History of appendectomy History of cardiac cath 1999 History of cataract surgery RIGHT CATARACT History of cholecystectomy History of colonoscopy History of cystoscopy History of esophagogastroduodenoscopy (EGD) History of heart valve replacement AORTIC HEART VALVE, 1999. FOLLOWS WITH DR. WADE. 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 Beliefs That Will Affect Care: None marital status: Current Living Situation: Spouse current occupational status: retired Other Information That Helps Us Care for You: No Feels Safe at Home: Yes Safety Concerns: Feels Safe At This Time Smoking Status: Light tobacco smoker Tobacco Type: cigars ; Do You Dip or Chew Tobacco: No ; Second Hand Exposure: No ; Tobacco Cessation Education Requested by Patient: No Hx Alcohol Use: No Hx Substance Use: No Seatbelt Use: always Results & Data Vital Signs (Past 12 Hours) Vital Signs Temp Pulse Resp BP Pulse Ox 02/10/19 07:11 36.6 C 104 H 18 122/78 90 02/09/19 22:44 36.4 C L 99 H 18 130/69 93
--- NOTE | 2019-02-13 20:40 | Discharge Summary ---
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 His is at the bedside. He states he was taking warfarin chronically given his paroxysmal A. fib and bioprosthetic valve but started taking Xarelto today on the advice of his manager of finance. Earlier this evening he began to notice specks of red in his stool, followed by 2 more house bowel movements with increasingly more blood which prompted him to come to the ER. In the ER he is remained normotensive and not tachycardic. He had 2 more bright red bloody bowel movements. His H&H was 13.6/39.4. Otherwise no white count, platelets 229, INR 1.7, BMP unremarkable. Patient appears to have chronically elevated creatinine baseline appears to be 1.4-1.5. Today he is 1.58. Glucose 232. CT abdomen pelvis with IV contrast shows diverticulosis with focal wall thickening which could represent diverticulitis. He was started on Zosyn, daptomycin. Gastroenterology was consulted. PMH: As above PSH: Cholecystectomy, left-sided hernia repair, aortic valve repair with bioprosthetic valve 1999 SH: Retired, lives with his . Former smoker. Does not drink or use drugs. Principal Diagnosis Rectal bleeding Discharge Exam Constitutional: WD/WN, vitals as above Eyes: EOM intact bilaterally; no conjunctival abnormality ENMT: external ear and nose normal, oropharynx normal Neck: trachea midline, no thyromegaly normal visual inspection Respiratory: normal respiratory effort, lungs clear to auscultation no respiratory distress Cardiovascular: RRR, no murmur, no edema Gastrointestinal (Abdomen): Inspection/Auscultation: abdomen normal to inspection; abdomen not distended Musculoskeletal: no cyanosis or clubbing, extremities motor strength 5/5 Skin: no rashes, warm and dry Neurologic: moves all extremities and awake Psychiatric: Orientation: alert, oriented to person and cooperative Discharge Data Allergies Allergy/AdvReac Type Severity Reaction Status Date / Time glyburide Allergy Unknown PT NOT Verified 02/06/19 13:57 AWARE atorvastatin [From Lipitor] AdvReac Mild Muscle Pain Verified 02/09/19 17:56 lovastatin [From Mevacor] AdvReac Mild Muscle Pain Verified 02/09/19 17:56 simvastatin [From Zocor] AdvReac Mild Muscle Pain Verified 02/09/19 17:56 Iyopysg-Kdw-Ksi Reductase AdvReac Mild Muscle Pain Verified 02/09/19 17:52 Inhibitor ezetimibe AdvReac Unknown ALL Verified 02/06/19 13:57 STATINS GIVE LEG CRAMPS metformin AdvReac Unknown DIARRHEA Verified 02/06/19 13:57 niacin AdvReac Unknown RED FLUSH Verified 02/06/19 13:57 tramadol AdvReac Unknown upset Verified 02/06/19 13:57 stomach Consultations 02/07/19 19:52 Consult Gastroenterology Stat 02/07/19 20:12 Consult Hematology Stat 02/07/19 20:22 ED Decision to Admit Stat 02/07/19 22:36 Consult Case Management - Discharge Planning Routine Ordered Studies 02/07/19 19:43 CT abd pelvis IV con only Stat Hospital Course (1) Rectal bleeding: Likely diverticular bleed, as he has known diverticulosis on a colonoscopy from a few months ago. - Seen by GI on 02/08 - Bleeding improving. Hgb is doing ok, though trickling down. - Conservative care at this point. Discussed with Dr. Prabhakar. Hold anticoagulation until he sees him in the clinic. - On 02/09, hgb is still trending down. Patient and feel more comfortable staying another night which I don't disagree with. Maroon stools likely represent old blood, but will get AM hgb to be sure. On 02/10, hemoglobin stable. Patient and agreeable to discharge. will hold blood thinner and will defer future management to pcp. (2) Permanent atrial fibrillation: Self rate-controlled at present (i.e. no meds needed). - Hold anticoagulation until seen in the office by Dr. Prabhakar (3) Type 2 diabetes mellitus with neurologic complication: On insulin as outpatient. A1c was 8.1% in 11/2018. - Continue long-acting and sliding scale insulin - Blood sugars good today. (4) Hypertension: BP presently 122/70. HTN listed in his chart, but no HTN meds noted. - Monitor - Stable today. (5) Temporal arteritis: No vision issues reported. - Continue MTX when able (I presumed this is for the temporal arteritis, though I am not sure. I don't see MTX referenced in any recent outpatient visits.) (6) H/O heart bypass surgery: Bioprosthetic valve in 2000. - No inpatient concerns (7) DVT prophylaxis: SCDs & early ambulation - Avoiding chemoprophylaxis for GI bleed Total Time Total Time Spent Total Time Spent (In Minutes): 32 Total Time Includes: Examination of the Patient, Discharge Planning and Medication Reconciliation Discharge Plan Discharge Items Patient Disposition: Home - Self-Care Reason For Visit: GIB ON ANTICOAGULANT Discharge Diagnosis: GI bleed on anticoagulant Activity: Resume your previous activity Non-emergency contact: Primary Care Provider Call non-emergency contact if: you have any medication questions Follow-up/Referrals: Ronnie Jones MD [Primary Care Provider] - 02/17/19 3:00 pm (Please, follow up at Dr. Jones's office with his associate, Sussy Gómez PA-C, on SundayFebruary 17 at 3:00 pm. *If you need to change this appointment, call the office at [phone].) Diet: Carb Consistent or DM2 and Heart Healthy Addtl Attending Provider Instructions: You have been hospitalized for an acute medical problem which was gastrointestinal bleeding. During your stay at [facility], we have made an effort to correct the problem that brought you to the hospital while keeping you as comfortable as possible. Bleeding subsided, bringing your condition under control and your discharge instructions will include directions for any medications you should take after leaving the hospital. Please make sure you see your Primary Care Provider as part of your follow up plan. Also will need to followup with Dr. Prabhakar to discuss when to continue blood thinner. Recommend rechecking hemoglobin in 4 days. Pending Studies at Discharge: No Stand-Alone Forms: My [facility] [employer], Smoking Cessation Medications and DC Order Prescriptions: Continued folic acid 1 mg tablet 1 mg PO DAILY RF: 0 methotrexate sodium 2.5 mg tablet 12.5 mg PO DAILY RF: 0 Novolog Mix 70-30FlexPen U-100 100 unit/mL (70-30) insulin pen 5 units SUBCUT .COMPLEX Qty: 15 RF: 3 Lantus U-100 Insulin 100 unit/mL solution 32 unit SUBCUT HS Qty: 10 RF: 3 montelukast 10 mg tablet 10 mg PO DAILY Qty: 30 RF: 2 Discontinued Xarelto 15 mg tablet 15 mg PO QAM RF: 0 Discharge Orders: Discharge Order (Routine); Ordered 02/10/19 Ordered By: Randy Ascencio Admission Data Admit Date/Time: 02/07/19 21:55 Attending Provider: Randy Ascencio Admit Provider: Amanda Rollins Primary Care Provider: Ronnie Jones Other Providers: Jesus Prieto ; Adriel Koroma ; Dianelys Newman ; Shad Abbott Other Interventions: Discharge Summary Assessment (RN) Last Done: 02/10/19 12:30 DC Date/Time DO NOT enter until pt leaves facility: 02/10/19 13:07
== END 2019-02-10 13:07 | disposition home or self-care (01) | DRG 378 ==
LOC: ED 19:23 → SUATTDRO 21:55 → 2E 21:55 → 2N 02-09 16:18

== ENCOUNTER 2022-01-25 16:31 | Inpatient (IN) ==
--- NOTE | 2022-01-25 16:38 | ED Triage Note ---
Date of Service January 25, 2022 History of Present Illness This patient was briefly evaluated while in triage. An abbreviated physical exam was performed. This patient is a 89-year-old Male with past medical history of hematuria, anxiety, aortic valve disorder, arthralgias, CAD, CKD, who presents to the ED for evaluation of "I was in [place] all day today getting tests and they found something in the MRI". PT. had head MRI d/t dizziness, falling. He states he doesn't know what the abnormal result was, but was referred to the ED for evaluation. States "they were supposed to fax the results here." Nursing call in note: "MRI finding Acute infarct x2" Physical Exam VITALS: Vitals are noted on the nurse's note and reviewed by myself. GENERAL: This is an 89 year old male, in no acute distress, nondiaphoretic, well-developed well-nourished. SKIN: No obvious rashes, edema, erythema HEAD: Normocephalic atraumatic. EYES: Conjunctivae without injection, sclerae without icterus. NECK: No JVD. LUNGS: No retractions or accessory muscle use. MUSCULOSKELETAL: Normal gait. NEURO: Patient was alert and oriented to person place and time. No focal neurological deficits. Initial orders for labs and / or imaging were placed and patient was placed in the waiting area until a bed is available. Please see further documentation for the full ED course.
[2022-01-25 17:22] LABS: Basophils # (auto) 0.03 K/uL (0-0.2); Basophils % (auto) 0.5 %; Eosinophils # (auto) 0.11 K/uL (0-0.50); Hematocrit (blood only) 35.2 % (40.1-51.0); Hemoglobin 11.7 g/dl (14.0-18.0); Immature Granulocytes # (auto) 0.04 K/uL (0.00-0.02); Immature Granulocytes % (auto) 0.7 %; Lymphocytes % (auto) 26.6 %; Mean Corpuscular Hgb Conc 33.2 g/dL (32.0-36.0); Mean Corpuscular Volume 99.2 fL (80.0-100.0); Mean Platelet Volume 10.4 fL (9.4-12.4); Monocytes # (auto) 0.55 K/uL (0.24-0.82); Monocytes % (auto) 9.8 %; Neutrophils % (auto) 60.4 %; Platelet Count 147 K/uL (130-400); RDW Coefficient of Variation 13.4 % (11.5-14.5); RDW Standard Deviation 48.1 fL (36.4-46.3); Red Blood Count 3.55 M/uL (4.63-6.08); White Blood Count 5.63 K/ul (4.8-10.8)
[2022-01-25 17:34] LABS: INR 1.1 (0.9-1.1); Partial Thromboplastin Time 28.5 Seconds (21.0-31.0); Prothrombin Time 11.8 Seconds (9.0-12.0)
[2022-01-25 17:45] LABS: Albumin Globulin Ratio 1.6 (0.9-2); Albumin Level 4.5 gm/dl (3.4-5.0); BUN Creatinine Ratio 18.9 (10-20); Bilirubin,Total 0.5 mg/dl (0.2-1.0); Calcium 9.1 mg/dl (8.5-10.1); Creatinine Clr Calc Pharmacy 32.7 ml/min; Est GFR (African American) 47.9 ml/min; Est GFR (Non-African American) 41.4 ml/min; Globulin 2.8 gm/dl (2.5-4.0); Magnesium 2.1 mg/dl (1.7-2.4); Potassium 4.5 mmol/L (3.5-5.1); Total Protein 7.3 gm/dl (6.0-8.3)
[2022-01-25 17:52] LABS: Troponin I High Sensitivity 15.4 pg/ml (0-20)
--- NOTE | 2022-01-25 18:43 | Emergency Department Note ---
Impression & Plan Acute ischemic stroke, Anticoagulant long-term use, Aortic valve disorder ED Provider Note NAME: DANNY DUTTON AGE: 89 SEX: M : 1930 ARRIVES VIA: Walk-In INFORMANT: Patient ED PROVIDER(S): Uziel Ching DO CHIEF COMPLAINT: CVA HPI: Patient is an 89-year-old male who presents to the ER for falls and weakness and worsening balance issues over the past 2 weeks. He denies any headache or change in vision. No chest pain or shortness of breath. No nausea, vomiting, or diarrhea. Family notes that he is always had balance issues but specifically worse over the past 2 weeks. He also has been having some memory issues. He had an MRI performed by his PCP as an outpatient and consequently was referred in following acute lacunar infarcts in the left thalamus and left parietal lobe were found. Patient denies any focal weakness or numbness. No other exacerbating or remitting factors. ROS: See above HPI for pertinent positives & negatives. A total of 10 systems reviewed and were otherwise negative. PAST MEDICAL HISTORY:See Below PAST SURGICAL HISTORY:See Below FAMILY HISTORY:See Below SOCIAL HISTORY:See Below HOME MEDICATIONS:See Below ALLERGIES:See Below VITALS:See Below PHYSICAL EXAMINATION: GENERAL: Sitting up in bed, alert, well appearing, well nourished, no distress, non-toxic EYE EXAM: normal conjunctiva. PERRL and EOM's intact. OROPHARYNX: no exudate, no erythema, lips, buccal mucosa, and tongue normal and mucous membranes are moist NECK: supple, no nuchal rigidity, no adenopathy, non-tender LUNGS: Clear to auscultation. Normal chest wall mechanics HEART: no murmurs, S1 normal and S2 normal ABDOMEN: abdomen soft, non-tender, normo-active bowel sounds, no masses, no rebound or guarding. BACK: Back is symmetrical on inspection and there is no deformity, no midline tenderness, no CVA tenderness. SKIN: no rashes and no bruising UPPER EXTREMITIES: upper extremities are grossly normal. LOWER EXTREMITIES: No pitting edema. NEURO EXAM: Normal sensorium, cranial nerves II-XII intact, normal speech, no weakness of arms, no weakness of legs. No drift. Finger to nose intact. Gross sensation intact. Eqnf-vq-[id number] intact. Rapid alternating movements upper extremities intact MEDICAL DECISION MAKING: Patient is an 89-year-old male who presents the ER following for memory issues as well as balance issues. He had an MRI performed as an outpatient was confirmed a stroke. IV was established blood work is obtained. Labs show no significant leukocytosis. Mild anemia 11.7. INR unremarkable. BMP with a creatinine 1.8. LFTs bilirubin was unremarkable. Troponin was negative. COVID was negative. UA was negative. Patient family were updated at bedside. Was given aspirin. Discussed with the hospitalist for further evaluation Dr. Matty Echeverria. Question if these are embolic secondary to the A. fib as he may be missing his NOAC as he is not a reliable historian. Triage Nursing notes reviewed. Limited review of prior medical records performed Vital Signs: reviewed and remarkable for no significant abnormalities Differential diagnosis: Differential Diagnosis includes but is not limited to headache, tension headache, cluster headache, migraine, subarachnoid hemorrhage, meningitis, mass, central venous thrombus, concussion, trauma and epidural/subdural hemorrhage. ER treatment provided: See below Diagnostics interpreted by me: ECG: none Cardiac Monitoring: An order was placed for continuous cardiac monitoring. The monitor shows a rate of 70 with sinus rhythm. Laboratory studies: As stated above and show below. Imaging studies: MRI report as an outpatient was reviewed Consultation(s): none Critical Care: None Past Med/Surg History Medical History (Updated 01/25/22 @ 23:40 by Uziel Ching DO) Acute diverticulitis Allergic rhinitis Anticoagulant long-term use Anxiety Aortic valve disorder Arthralgia of multiple sites BPH with obstruction/lower urinary tract symptoms CAD in [place] artery Chronic kidney disease, stage III (moderate) Constipation Diabetes mellitus, type 2 IDDM Diverticulitis of colon Dyslipidemia Elevated prostate specific antigen (PSA) Fatty liver Fecal urgency Gait abnormality Gastroesophageal reflux disease Gastroparesis Generalized muscle weakness Gout Hematuria Hypercholesterolemia History of statin myopathy Hyperlipidemia Idiopathic polyneuropathy Incomplete emptying of bladder Inguinal hernia assisted (current) use of systemic steroids Long-term use of immunosuppressant medication Lower back pain Lumbar disc disease Male erectile disorder of organic origin Memory loss Mitral regurgitation Neuroma Organic impotence Paroxysmal atrial fibrillation Polymyalgia rheumatica Polyneuropathy Positive CROW (antinuclear antibody) Prostate nodule Rheumatoid arthritis Sciatica Seborrheic dermatitis Spinal stenosis of lumbar region Steroid-induced osteoporosis Temporal arteritis TMJ (dislocation of temporomandibular joint) Type 2 diabetes mellitus with neurologic complication Vertigo Vitamin D deficiency Surgical History H/O heart bypass surgery History of adenoidectomy History of appendectomy History of cardiac cath 1999 History of cataract surgery RIGHT CATARACT History of cholecystectomy History of colonoscopy History of cystoscopy History of esophagogastroduodenoscopy (EGD) History of heart valve replacement AORTIC HEART VALVE, 1999. FOLLOWS WITH DR. WADE. History of herniorrhaphy INGUINAL History of tonsillectomy Family History Father Stroke syndrome Brother Stroke syndrome AAA (abdominal aortic aneurysm) Sister AAA (abdominal aortic aneurysm) Lung cancer Unknown Pancreatic cancer Mother Cancer Denies family history of Ovarian cancer Prostate cancer Coronary heart disease Breast cancer Colorectal cancer Social History Smoking Status: Former smoker Tobacco Type: Cigars Cigarettes Per Day: 2 cigars per week; Second Hand Exposure: No; Hx Alcohol Use: No Hx Substance Use: No Preferred Language: Kosovan Communication Ability: Effective Visual Impairment: Limited Hearing Ability: Normal Reading Tutor Required: No Beliefs That Will Affect Care: None marital status: Current Living Situation: Spouse current occupational status: retired 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 Feels Safe at Home: Yes Childhood Exposure to Second-Hand Smoke: Yes caffeine: Yes during the past year weight has: remained stable Dental Care, Regularly: No Physical Activity Frequency: Does not Exercise Seatbelt Use: always Sunscreen Use: Yes (sometimes ) Assistive Devices: Glasses Allergies Allergies Allergy/AdvReac Type Severity Reaction Status Date / Time glyburide Allergy Unknown PT NOT Verified 12/15/21 12:03 AWARE atorvastatin [From Lipitor] AdvReac Mild Muscle Pain Verified 12/15/21 12:03 lovastatin [From Mevacor] AdvReac Mild Muscle Pain Verified 12/15/21 12:03 simvastatin [From Zocor] AdvReac Mild Muscle Pain Verified 12/15/21 12:03 Snguvtk-EUM-QzA Reductase AdvReac Mild Muscle Pain Verified 12/15/21 12:03 Inhibitor [Tgyuily-Cnp-Fcp Reductase Inhibitor] ezetimibe AdvReac Unknown ALL Verified 12/15/21 12:03 STATINS GIVE LEG CRAMPS metformin AdvReac Unknown DIARRHEA Verified 12/15/21 12:03 niacin AdvReac Unknown RED FLUSH Verified 12/15/21 12:03 tramadol AdvReac Unknown upset Verified 12/15/21 12:03 stomach Home Meds Home Medications Medication Instructions Recorded Confirmed methotrexate sodium 2.5 mg tablet 12.5 mg PO DAILY 02/06/19 01/25/22 vitamins A,C,K-xmse-mrejmk See Rx Instructions .Route .COMPLEX 09/24/20 01/25/22 [PreserVision AREDS] Previous Rx's Medication Instructions Recorded hydroxychloroquine 200 mg tablet 200 mg PO DAILY #30 tabs 02/04/20 ferrous sulfate 325 mg (65 mg 325 mg PO DAILY #30 tabs 07/06/20 iron) tablet pen needle, diabetic 32 gauge x #100 ea 11/02/20" (BD Ultra-Fine Radha Pen Needle) amoxicillin 500 mg capsule 2,000 mg PO .COMPLEX #4 caps 02/09/21 folic acid 1 mg tablet 1 mg PO DAILY #30 tabs 02/09/21 meclizine 25 mg tablet 25 mg PO TID PRN dizziness #30 tabs 02/14/21 tamsulosin 0.4 mg capsule 0.4 mg PO DAILY #90 caps 06/29/21 flash glucose sensor (FreeStyle #1 kit 11/25/21 Shawn 2 Sensor kit) insulin aspart U-100 100 unit/mL 4 unit (0.04 mL) subcut TID #15 mL 11/25/21 (3 mL) subcutaneous pen (Novolog Flexpen U-100 Insulin aspart) insulin glargine 100 unit/mL (3 4 unit (0.04 mL) subcut QPM #3 mL 11/25/21 mL) subcutaneous pen (Lantus Solostar U-100 Insulin) rivaroxaban 15 mg tablet (Xarelto) 15 mg PO DAILY #90 tabs 01/16/22 Results & Data (ED) Vital Signs Vital Signs - 24 hr 01/25/22 16:32 01/25/22 18:35 Temperature 36.4 C L Temperature Source Temporal Artery Scan Pulse Rate 84 Pulse Rate [Apical] 70 Respiratory Rate 18 26 H Respiratory Depth Normal Blood Pressure 142/90 H Blood Pressure [Left Arm] 119/68 Blood Pressure Mean 107 Blood Pressure Mean [Left Arm] 85 Blood Pressure Position Sitting Pulse Oximetry 99 94 Oxygen Delivery Method Room Air Room Air Sepsis Recent Fever Within 48 Hours No Sepsis New/Unexplained Change in Mental Status No Sepsis Action Taken by Nursing No Action Required Laboratory Data Result diagrams: 01/25/22 17:07 01/25/22 17:07 Lab Results 01/25/22 01/25/22 01/25/22 Range/Units 17:07 17:07 17:07 WBC 5.63 (4.8-10.8) K/ul RBC 3.55 L (4.63-6.08) M/uL Hgb 11.7 L (14.0-18.0) g/dl Hct 35.2 L (40.1-51.0) % MCV 99.2 (80.0-100.0) fL MCH 33.0 (25.0-34.0) pg MCHC 33.2 (32.0-36.0) g/dL RDW Std Deviation 48.1 H (36.4-46.3) fL RDW Coeff of Zita 13.4 (11.5-14.5) % Plt Count 147 (130-400) K/uL MPV 10.4 (9.4-12.4) fL Immature Gran % (Auto) 0.7 % Neut % (Auto) 60.4 % Lymph % (Auto) 26.6 % Harper % (Auto) 9.8 % Eos % (Auto) 2.0 % Baso % (Auto) 0.5 % Neut # (Auto) 3.40 (1.4-6.5) K/uL Lymph # (Auto) 1.50 (1.2-3.4) K/uL Harper # (Auto) 0.55 (0.24-0.82) K/uL Eos # (Auto) 0.11 (0-0.50) K/uL Baso # (Auto) 0.03 (0-0.2) K/uL Immature Gran # (Auto) 0.04 H (0.00-0.02) K/uL PT 11.8 (9.0-12.0) Seconds INR 1.1 (0.9-1.1) APTT 28.5 (21.0-31.0) Seconds PTT Ratio 1.0 Sodium (136-145) mmol/L Potassium (3.5-5.1) mmol/L Chloride (98-107) mmol/L Carbon Dioxide (21-32) mmol/L Anion Gap (3-11) BUN (6-23) mg/dl Creatinine (0.6-1.4) mg/dl Est Cr Clr Drug Dosing ml/min Est GFR ( Amer) ml/min Est GFR (Non-Af Amer) ml/min BUN/Creatinine Ratio (10-20) Glucose (70-99(Fasting)) mg/dl Calcium (8.5-10.1) mg/dl Magnesium (1.7-2.4) mg/dl Total Bilirubin (0.2-1.0) mg/dl AST (13-39) U/L ALT (7-52) U/L Alkaline Phosphatase (34-104) U/L Troponin I High Sens (0-20) pg/ml Total Protein (6.0-8.3) gm/dl Albumin (3.4-5.0) gm/dl Globulin (2.5-4.0) gm/dl Albumin/Globulin Ratio (0.9-2) SARS-CoV-2, RNA, NAAT (NEGATIVE) Blood Type A Negative Antibody Screen POSITIVE A Antibody Identification Anti-D 01/25/22 01/25/22 Range/Units 17:07 18:39 WBC (4.8-10.8) K/ul RBC (4.63-6.08) M/uL Hgb (14.0-18.0) g/dl Hct (40.1-51.0) % MCV (80.0-100.0) fL MCH (25.0-34.0) pg MCHC (32.0-36.0) g/dL RDW Std Deviation (36.4-46.3) fL RDW Coeff of Zita (11.5-14.5) % Plt Count (130-400) K/uL MPV (9.4-12.4) fL Immature Gran % (Auto) % Neut % (Auto) % Lymph % (Auto) % Harper % (Auto) % Eos % (Auto) % Baso % (Auto) % Neut # (Auto) (1.4-6.5) K/uL Lymph # (Auto) (1.2-3.4) K/uL Harper # (Auto) (0.24-0.82) K/uL Eos # (Auto) (0-0.50) K/uL Baso # (Auto) (0-0.2) K/uL Immature Gran # (Auto) (0.00-0.02) K/uL PT (9.0-12.0) Seconds INR (0.9-1.1) APTT (21.0-31.0) Seconds PTT Ratio Sodium 137 (136-145) mmol/L Potassium 4.5 (3.5-5.1) mmol/L Chloride 104 (98-107) mmol/L Carbon Dioxide 27 (21-32) mmol/L Anion Gap 6 (3-11) BUN 28 H (6-23) mg/dl Creatinine 1.48 H (0.6-1.4) mg/dl Est Cr Clr Drug Dosing 32.7 ml/min Est GFR ( Amer) 47.9 ml/min Est GFR (Non-Af Amer) 41.4 ml/min BUN/Creatinine Ratio 18.9 (10-20) Glucose 199 H (70-99(Fasting)) mg/dl Calcium 9.1 (8.5-10.1) mg/dl Magnesium 2.1 (1.7-2.4) mg/dl Total Bilirubin 0.5 (0.2-1.0) mg/dl AST 15 (13-39) U/L ALT 13 (7-52) U/L Alkaline Phosphatase 79 (34-104) U/L Troponin I High Sens 15.4 (0-20) pg/ml Total Protein 7.3 (6.0-8.3) gm/dl Albumin 4.5 (3.4-5.0) gm/dl Globulin 2.8 (2.5-4.0) gm/dl Albumin/Globulin Ratio 1.6 (0.9-2) SARS-CoV-2, RNA, NAAT NEGATIVE (NEGATIVE) Blood Type Antibody Screen Antibody Identification Administered Medications Insulin Aspart (Insulin Aspart Per Unit) 0 units SC ACHS TYLER Stop: 02/24/22 20:59 Last Admin: 01/25/22 21:12 Dose: 1 units Documented By: GREGORY Co-signed By: VENITA Insulin Glargine (Lantus Per Unit Charge) 2 units SQ BID TYLER Stop: 02/24/22 20:59 Last Admin: 01/25/22 21:12 Dose: 2 units Documented By: GREGORY Co-signed By: ML Discontinued Medications Aspirin (Aspirin Chew 324 Mg) 81 mg PO NOW STA Stop: 01/25/22 18:45 Last Admin: 01/25/22 19:03 Dose: 81 mg Documented By: GREGORY Discharge Plan Visit Data Chief Complaint: Abnormal Labs/Diagnostic Testing Stated Complaint: REFERRED BY DOC, ABNORMAL LABS,HAD MRI ED Provider: Uziel Ching Discharge Problem: Acute ischemic stroke, Anticoagulant long-term use, Aortic valve disorder Patient Disposition: Admitted As Inpatient Discharge Instructions Interventions: ED Discharge Assessment Last Done: 01/25/22 21:51
[2022-01-25] MEDS ORDERED: ASPIRIN CHEW 324 MG PO STA (18:44)
--- NOTE | 2022-01-25 18:48 | History & Physical Report ---
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 -At rest the patient has no focal neurologic defects, will continue stroke workup with TTE echo, Am lipids, and A1c -Already received 81 mg of Aspirin in the ED, will continue daily dosing sta rting tomorrow -Will hold his dose of Xarelto tonight to help reduce his risk of hemorrhagic conversion -Neuro consult placed for assistance with anticoagulation management moving forward -PT/OT consults placed -Monitor on tele, bedside dysphagia screen ordered, fall/aspiration precautions ordered, neuro checks q4h -Monitor AM CBC, CMP, fasting lipid panel, and A1C (2) Permanent atrial fibrillation: Plan: -Currently rate controlled -Will hold dose of Xarelto tonight due to risk of hemorrhagic conversion -Can consider Cardiology consult tomorrow to help with anticoagulation plan moving forward as he has had multiple falls and is at risk for bleeding (3) CAD in [place] artery: Plan: -Continue Aspirin started today -Has not been on a statin due to intolerance, will have to consider other lipid lowering agents (4) Gastroesophageal reflux disease: Plan: -Will start patient on pantoprazole while admitted for stress ulcer prophylaxis (5) Incomplete emptying of bladder: Plan: -Continue flomax -Bladder scan and straight cath orders placed (6) Polymyalgia rheumatica: Plan: -Continue methotrexate and hydroxychloroquine (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: Plan: -Normally on 4 units Lantus HS, will switch to 2 units BID for now -Correction factor of 55 and carb ration of 19 -Consistent carb diet, monitor BSG ACHS (8) Hypertension: Plan: -Hemodynamically stable -Not currently on antihypertensives -Continue to monitor for now Plan The patient was discussed with Dr. Contreras at the time of the admission History of Present Illness Chief Complaint: Abnormal outpatient Imaging results Primary Care Provider: Viktor Jones MD Angel is an 89 year old male with a PMH significant for memory loss, DM II, hematuria, CAD, afib on Xarelto, Anxiety, Stage III CKD, HTN, Gout, Gastroparesis, hypercholesterolemia, polymyalgia rheumatica and temporal arteritis on methotrexate and hydroxychloroquine, BPH who presented to the [facility] ED on 01/25/22 for abnormal outpatient imaging findings today. Per the ED, the patient had an outpatient MRI In the ED the patient was found to be afebrile, hemodynamically stable, and stable on RA. Labs were remarkable for WBC WNL, stable Hgb, Cr of 1.48 (baseline appears to be around 1.4), stable electrolytes. Print out of the imaging report from his MRI of the brain shows "Acute lacunar infarctions in the left thalamus and left parietal lobe, both in the territory of the posterior cerebral artery. Severe white matter chronic ischemic changes. Chronic lacunar infarctions in both cerebellar hemispheres.". Prior to admission the patient was given 81 mg of aspirin. At the time of the exam the patient was resting comfortably in bed in no acute distress with his , Son, and Daughter sitting bedside, history was obtained from all. They state that the patient has been having balance issues, dizziness, and recurrent falls since last month. His symptoms are not associated with specific movements and are not consistent. They state that his last fall was last Sunday, he did hit his head but did not lose consciousness. The patient takes his Xarelto consistently but has not been on a Statin for years due to myopathy with multiple different statins. At the time of the exam he does not have complaints besides being hungry. He has not had recent fevers, chills chest pain, SOB, abdominal pain, nausea, dysuria, hematuria, and lower extremity weakness. His son mentioned that the patient will have intermittent periods of B L blurry vision, often when he is trying to read or walk. I spoke with the patient and his family regarding code status, the patient is a full code and his Son is is POA. 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 Please refer to Dr. Contreras's attestation for any changes to the treatment plan. Allergies Allergy/AdvReac Type Severity Reaction Status Date / Time glyburide Allergy Unknown PT NOT Verified 12/15/21 12:03 AWARE atorvastatin [From Lipitor] AdvReac Mild Muscle Pain Verified 12/15/21 12:03 lovastatin [From Mevacor] AdvReac Mild Muscle Pain Verified 12/15/21 12:03 simvastatin [From Zocor] AdvReac Mild Muscle Pain Verified 12/15/21 12:03 Yfhygfm-AFF-QdK Reductase AdvReac Mild Muscle Pain Verified 12/15/21 12:03 Inhibitor [Vfwtjhj-Jrz-Eiz Reductase Inhibitor] ezetimibe AdvReac Unknown ALL Verified 12/15/21 12:03 STATINS GIVE LEG CRAMPS metformin AdvReac Unknown DIARRHEA Verified 12/15/21 12:03 niacin AdvReac Unknown RED FLUSH Verified 12/15/21 12:03 tramadol AdvReac Unknown upset Verified 12/15/21 12:03 stomach Home Medications Medication Instructions Recorded Confirmed Type methotrexate sodium 2.5 mg tablet 12.5 mg PO DAILY 02/06/19 01/25/22 History hydroxychloroquine 200 mg tablet 200 mg PO DAILY #30 tabs 02/04/20 01/25/22 Rx ferrous sulfate 325 mg (65 mg 325 mg PO DAILY #30 tabs 07/06/20 01/25/22 Rx iron) tablet vitamins A,C,Y-qrpy-ayjpjc PO BID 09/24/20 12/15/21 History [PreserVision AREDS] pen needle, diabetic 32 gauge x #100 ea 11/02/20 12/15/21 Rx 5/32" (BD Ultra-Fine Radha Pen Needle) amoxicillin 500 mg capsule 2,000 mg PO .COMPLEX #4 caps 02/09/21 01/25/22 Rx folic acid 1 mg tablet 1 mg PO DAILY #30 tabs 02/09/21 01/25/22 Rx meclizine 25 mg tablet 25 mg PO TID PRN dizziness #30 tabs 02/14/21 01/25/22 Rx tamsulosin 0.4 mg capsule 0.4 mg PO DAILY #90 caps 06/29/21 01/25/22 Rx flash glucose sensor (FreeStyle #1 kit 11/25/21 12/15/21 Rx Shawn 2 Sensor kit) insulin aspart U-100 100 unit/mL 4 unit (0.04 mL) subcut TID #15 mL 11/25/21 Rx (3 mL) subcutaneous pen (Novolog Flexpen U-100 Insulin aspart) insulin glargine 100 unit/mL (3 4 unit (0.04 mL) subcut QPM #3 mL 11/25/21 01/25/22 Rx mL) subcutaneous pen (Lantus Solostar U-100 Insulin) rivaroxaban 15 mg tablet (Xarelto) 15 mg PO DAILY #90 tabs 01/16/22 01/25/22 Rx Past Med/Surg History Medical History (Updated 01/25/22 @ 20:17 by Tom Aguirre PA-C) Acute diverticulitis Allergic rhinitis Anticoagulant long-term use Anxiety Aortic valve disorder Arthralgia of multiple sites BPH 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 Chronic kidney disease, stage III (moderate) Constipation Diabetes mellitus, type 2 IDDM Diverticulitis of colon Dyslipidemia Elevated prostate specific antigen (PSA) Fatty liver Fecal urgency Gait abnormality Gastroesophageal reflux disease Gastroparesis Generalized muscle weakness Gout Hematuria Hypercholesterolemia History of statin myopathy Hyperlipidemia Idiopathic polyneuropathy Incomplete emptying of bladder Inguinal hernia rn 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 (current) use of systemic steroids Long-term use of immunosuppressant medication Lower back pain Lumbar disc disease Male erectile disorder of organic origin Memory loss Mitral regurgitation Neuroma Organic impotence Paroxysmal atrial fibrillation Polymyalgia rheumatica Polyneuropathy Positive CROW (antinuclear antibody) Prostate nodule Rheumatoid arthritis Sciatica Seborrheic dermatitis Spinal stenosis of lumbar region Steroid-induced osteoporosis Temporal arteritis TMJ (dislocation of temporomandibular joint) Type 2 diabetes mellitus with neurologic complication Vertigo Vitamin D deficiency Surgical History H/O heart bypass surgery History of adenoidectomy History of appendectomy History of cardiac cath 1999 History of cataract surgery RIGHT CATARACT History of cholecystectomy History of colonoscopy History of cystoscopy History of esophagogastroduodenoscopy (EGD) History of heart valve replacement AORTIC HEART VALVE, 1999. FOLLOWS WITH DR. WADE. History of herniorrhaphy INGUINAL History of tonsillectomy Family History Father Stroke syndrome Brother Stroke syndrome AAA (abdominal aortic aneurysm) Sister AAA (abdominal aortic aneurysm) Lung cancer Unknown Pancreatic cancer Mother Cancer Denies family history of Ovarian cancer Prostate cancer Coronary heart disease Breast cancer Colorectal cancer Social History Smoking Status: Former smoker Tobacco Type: Cigars Cigarettes Per Day: 2 cigars per week; Second Hand Exposure: No; Hx Alcohol Use: No Hx Substance Use: No Preferred Language: Nauruan Communication Ability: Effective Visual Impairment: Limited Hearing Ability: Normal Contamination Consultant Required: No Beliefs That Will Affect Care: None marital status: Current Living Situation: Spouse current occupational status: retired 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 Physical Exam Physical Exam: Physical Exam: General: In no acute distress, stated age, well-nourished, good hygiene HEENT: Normocephalic, atraumatic, patient with chronic right eyelid droop, no scleral icterus, pupils around round, symmetrical, and reactive to light, moist mucus membranes, trachea midline, no thyromegaly Chest/Pulm: No respiratory distress, symmetrical chest expansion, clear breath sounds throughout Cardiac: irregular rate and rhythm, systolic murmurs noted Abdomen: Negative for ascites and bruising, normoactive bowel sounds, soft, non-tender to palpation throughout Musculoskeletal: Symmetrical and without signs of acute trauma, upper and lower extremities with full ROM, no atrophy, spasticity, or flaccidity Extremities: Radial, dorsalis pedis, and posterior tibial pulses are intact and symmetrical, no edema noted in the BL LE's Skin: Warm, dry, no rashes , lesions, or scars noted Neuro: Alert and oriented to person, place, month, year, and president, no focal defects, CN II-XII tested and intact, no tremors noted Psych: No acute distress, calm and cooperative during the exam Results & Data Results & Data ([facility]) Vital Signs (Past 12 Hours) Vital Signs Temp Pulse Pulse Resp BP BP Pulse Ox 01/25/22 18:35 70 26 H 119/68 94 01/25/22 16:32 36.4 C L 84 18 142/90 H 99 O2 Del Method 01/25/22 18:35 Room Air 01/25/22 16:32 Room Air Laboratory Results Abnormal lab results 01/25/22 01/25/22 01/25/22 Range/Units 17:07 17:07 17:07 RBC 3.55 L (4.63-6.08) M/uL Hgb 11.7 L (14.0-18.0) g/dl Hct 35.2 L (40.1-51.0) % RDW Std Deviation 48.1 H (36.4-46.3) fL Immature Gran # (Auto) 0.04 H (0.00-0.02) K/uL BUN 28 H (6-23) mg/dl Creatinine 1.48 H (0.6-1.4) mg/dl Glucose 199 H (70-99(Fasting)) mg/dl Antibody Screen POSITIVE A ECG Additional Comments: Undetermined rhythm Otherwise normal ECG When compared with ECG of 05-SEP-2020 15:46, Current undetermined rhythm precludes rhythm comparison, needs review Code Status & VTE Plan Code Status Full code VTE Prophylaxis Plan VTE Prophylaxis will be ordered: Yes Supervising Physician Co-Signing Physician Notes Patient was seen and examined independently I discussed the case with Tom KELLOGG I reviewed pertinent past medical social family history and also the plan of care and agree with the plan of care. Patient sees Dr. Jones [facility] Patient an outpatient MRI which was suggestive of lacunar infarctions. Patient of note has a history of mechanical aortic valve and atrial fibrillation for which he is on rivaroxaban. Patient has been increasingly falling of late and has had some fine motor movement of his right hand has been bothersome to him. Otherwise he is a stable condition. Patient brought in our facility neurology consult. Patient's been intolerant of statin for some time. Discussion will be whether aspirin or Plavix should be in addition to his Xarelto and any other additional therapy for his statin intolerance. Echocardiogram be performed for embolic phenomena and physical and Occupational Therapy be undertaken Any exceptions will be noted below PG Care Time/CCT Total # of Minutes Spent Total Time Spent with Patient: Total time spent is greater than 50% in coordination of care (as documented) at patient's floor/unit and/or counseling patient: C[place] [address] Initial Inpt Care Lvl 2 Patient Type Established History Comprehensive Exam Comprehensive Medical Decision Making Moderate Complexity Diagnoses Acute ischemic stroke I63.9 Permanent atrial fibrillation I48.21 CAD in [place] artery I25.10 Gastroesophageal reflux disease K21.9 Incomplete emptying of bladder R33.9 Polymyalgia rheumatica M35.3 Type 2 diabetes mellitus with neurologic complication E11.49 Hypertension I10
[2022-01-25] MEDS ORDERED: DEXTROSE 50% 50 ML SYRINGE IV PRN (19:17)
[2022-01-25] MEDS ORDERED: GLUCOSE 10 TAB/TUBE PO PRN (19:17)
[2022-01-25] MEDS ORDERED: GLUCAGON FOR INJ 1 MG VIAL SQ PRN (19:17)
[2022-01-25] MEDS ORDERED: CARBOHYDRATES FOR HYPOGLYCEMIA PO PRN (19:17)
[2022-01-25] MEDS ORDERED: GLUCOSE 40% GEL 15 GM TUBE PO PRN (19:17)
[2022-01-25] MEDS ORDERED: PHARMACIST DISCHARGE MED REC CONSULT PRN (19:49)
[2022-01-25] MEDS ORDERED: PANTOprazole 40 MG TAB PO STA (20:29)
[2022-01-25] MEDS: LANTUS PER UNIT CHARGE SQ SCH (21:12)
[2022-01-25] MEDS: INSULIN ASPART PER UNIT SC SCH (21:12)
[2022-01-25 21:32] LABS: Appearance Urine Clear (Clear); Bilirubin Urine Negative (Negative); Blood Urine Negative (Negative); Color Urine Yellow; Glucose Urine UA Negative (Negative); Ketones Urine Negative (Negative); Leukocyte Esterase Urine Negative (Negative); Nitrite Urine Negative (Negative); Protein Urine Negative (Negative); Specific Gravity Urine 1.039 (1.000-1.030); Urobilinogen Urine Negative (Negative)
[2022-01-25] MEDS ORDERED: ACETAMINOPHEN 325 MG TAB PO PRN (22:17)
[2022-01-25] MEDS ORDERED: INSULIN ASPART PER UNIT SC SCH (22:17)
[2022-01-25] MEDS ORDERED: LANTUS PER UNIT CHARGE SQ SCH (22:17)
[2022-01-26 07:16] LABS: Basophils # (auto) 0.03 K/uL (0-0.2); Basophils % (auto) 0.6 %; Eosinophils # (auto) 0.12 K/uL (0-0.50); Eosinophils % (auto) 2.6 %; Hematocrit (blood only) 31.2 % (40.1-51.0); Hemoglobin 10.5 g/dl (14.0-18.0); Immature Granulocytes # (auto) 0.03 K/uL (0.00-0.02); Immature Granulocytes % (auto) 0.6 %; Lymphocytes # (auto) 1.21 K/uL (1.2-3.4); Lymphocytes % (auto) 25.8 %; Mean Corpuscular Hemoglobin 33.4 pg (25.0-34.0); Mean Corpuscular Hgb Conc 33.7 g/dL (32.0-36.0); Mean Corpuscular Volume 99.4 fL (80.0-100.0); Mean Platelet Volume 10.8 fL (9.4-12.4); Monocytes # (auto) 0.52 K/uL (0.24-0.82); Monocytes % (auto) 11.1 %; Neutrophils # (auto) 2.78 K/uL (1.4-6.5); Neutrophils % (auto) 59.3 %; Platelet Count 130 K/uL (130-400); RDW Coefficient of Variation 13.4 % (11.5-14.5); RDW Standard Deviation 48.2 fL (36.4-46.3); Red Blood Count 3.14 M/uL (4.63-6.08); White Blood Count 4.69 K/ul (4.8-10.8)
[2022-01-26 07:21] LABS: Estimated Average Glucose 183 mg/dl
[2022-01-26 07:43] LABS: Albumin Globulin Ratio 1.6 (0.9-2); BUN Creatinine Ratio 19.5 (10-20); Bilirubin,Total 0.5 mg/dl (0.2-1.0); Calcium 8.9 mg/dl (8.5-10.1); Creatinine Clr Calc Pharmacy 36.4 ml/min; Est GFR (African American) 54.5 ml/min; Est GFR (Non-African American) 47.1 ml/min; Globulin 2.5 gm/dl (2.5-4.0); Potassium 4.4 mmol/L (3.5-5.1); Total Protein 6.5 gm/dl (6.0-8.3)
[2022-01-26] MEDS: TAMSULOSIN HCL 0.4 MG CAP PO SCH (08:33)
[2022-01-26] MEDS: FERROUS SULFATE 325 MG TAB PO SCH (08:33)
[2022-01-26] MEDS: FOLIC ACID 1 MG TAB PO SCH (08:33)
[2022-01-26] MEDS: HYDROXYCHLOROQUINE SULFATE 200 MG TAB PO SCH (08:33)
[2022-01-26] MEDS: INSULIN ASPART PER UNIT SC SCH ×4 (08:38→21:12)
[2022-01-26] MEDS: LANTUS PER UNIT CHARGE SQ SCH ×2 (08:38→21:13)
[2022-01-26] MEDS: ASPIRIN 81 MG ECTAB PO SCH (09:33)
[2022-01-26] MEDS ORDERED: LORazepam 0.5 MG TAB PO STA (11:30)
[2022-01-26] MEDS: RIVAROXABAN 15 MG TAB PO SCH (12:05)
--- NOTE | 2022-01-26 13:37 | Neurology Consultation ---
Date of Consultation January 26, 2022 Assessment & Plan (1) Acute ischemic stroke: Impression: Brain MRI was ordered recently, because of imbalance which was reported by the patient. Brain MRI showed acute small ischemic strokes, involving the left thalamus, and medial parietal lobe, as well as chronic lacun ar infarcts in bilateral cerebellum, and severe, chronic subcortical ischemic changes. The patient has atrial fibrillation and mitral valve replacement surgery on anticoagulation. He reports being compliant. The most likely underlying mechanism of stroke is cardioembolic event. However, acute stroke in single vascular territory, and atherosclerotic or atherothrombotic mechanism is also possible. Recommendations: Echocardiogram. We will keep the patient on Xarelto 15 mg daily. We will add aspirin 81 mg to treatment. While the patient on aspirin and Xarelto together, hemorrhagic complication risk will increase. The patient will give extra attention for any hemorrhagic complications and will inform his physician if he sees any evidence of hemorrhage. The patient is not a candidate for CT angiography is because of chronic renal insufficiency. We will order carotid ultrasound and brain MRA without contrast. Telemetry monitoring. Fall precautions. Physical therapy evaluation. The patient has been intolerant to multiple statins in the past, each cause myopathy. I do not think that the patient is a candidate for ambulatory trial. If the patient stays stable, then he can be discharged home tomorrow, after completion of stroke work-up. Follow-up with neurology clinic as before. (2) Polymyalgia rheumatica: Impression: The patient has polymyalgia rheumatica and temporal arteritis on methotrexate and hydroxychloroquine. (3) Polyneuropathy: Impression: The patient has long history of diabetes mellitus, which is the likely cause of peripheral polyneuropathy. He was evaluated by neurology and EMG and nerve conduction study was consistent with axonal type sensorimotor peripheral polyneuropathy. Recommendations: Management of diabetes mellitus. Fall precautions. Follow-up with neurology clinic. 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 (6) Long-term use of immunosuppressant medication: Impression: As seen above. 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 According to chart, he is not on steroid anymore. (8) Chronic kidney disease, stage III (moderate): (9) Aortic valve disorder: Impression: The patient has history of aortic bioprosthetic valve replacement and atrial fibrillation, on Xarelto. Plan Thank you for the consultation. History of Present Illness Reason for Consultation: CVA Requesting Physician: Tom Aguirre Attending Physician: Cynthia Porter MD History of Present Illness The patient is a 89-year-old pleasant gentleman, who was referred to emergency department by [facility], because of recent brain MRI, which showed acute lacunar infarcts in the left thalamus and left parietal lobe, both in the territory of the posterior cerebral artery. The patient has mentioned that recently impaired balance and recurrent falls without any new neurological symptoms, and brain MRI was ordered by clinic. MRI also reported chronic, severe white matter ischemic changes, and lacunar infarctions in both cerebellar hemispheres. The patient has chronic atrial fibrillation and cardiac valve replacement surgery. He has been on anticoagulation for a long time. He has been on Xarelto 15 mg daily, and he is very adamant that he does not miss any dosages. He reports no new neurological symptoms including weakness, numbness, facial asymmetry, speech disturbance, ataxia, or cognitive changes. He has baseline memory disturbance, which has not been declining recently. Since November 2021, the patient has fallen down 4 times. He was evaluated by neurology clinic, and EMG with nerve conduction study was consistent with peripheral polyneuropathy. The patient reports gradually worsening numbness in distal lower extremities as well as in his hands. He has been intolerant to multiple statins in the past, due to myopathies. In emergency department, the patient was started on low-dose aspirin on top of Xarelto. He denies any cardiac symptoms. Heart rate is well controlled. The patient was admitted to hospital for stroke work-up. I have reviewed the patient's chart including imaging studies and visualized them personally. I have discussed the case with the patient and family, and answered their questions in detail. Allergies Allergy/AdvReac Type Severity Reaction Status Date / Time glyburide Allergy Unknown PT NOT Verified 12/15/21 12:03 AWARE atorvastatin [From Lipitor] AdvReac Mild Muscle Pain Verified 12/15/21 12:03 lovastatin [From Mevacor] AdvReac Mild Muscle Pain Verified 12/15/21 12:03 simvastatin [From Zocor] AdvReac Mild Muscle Pain Verified 12/15/21 12:03 Vfuzfqx-DQZ-ZuJ Reductase AdvReac Mild Muscle Pain Verified 12/15/21 12:03 Inhibitor [Fsktxpn-Sva-Kqb Reductase Inhibitor] ezetimibe AdvReac Unknown ALL Verified 12/15/21 12:03 STATINS GIVE LEG CRAMPS metformin AdvReac Unknown DIARRHEA Verified 12/15/21 12:03 niacin AdvReac Unknown RED FLUSH Verified 12/15/21 12:03 tramadol AdvReac Unknown upset Verified 12/15/21 12:03 stomach Home Medications Medication Instructions Recorded Confirmed Type methotrexate sodium 2.5 mg tablet 12.5 mg PO DAILY 02/06/19 01/25/22 History hydroxychloroquine 200 mg tablet 200 mg PO DAILY #30 tabs 02/04/20 01/25/22 Rx ferrous sulfate 325 mg (65 mg 325 mg PO DAILY #30 tabs 07/06/20 01/25/22 Rx iron) tablet vitamins A,C,K-wplq-hbmlas See Rx Instructions .Route .COMPLEX 09/24/20 01/25/22 History [PreserVision AREDS] pen needle, diabetic 32 gauge x #100 ea 11/02/20 01/25/22 Rx 5/32" (BD Ultra-Fine Radha Pen Needle) amoxicillin 500 mg capsule 2,000 mg PO .COMPLEX #4 caps 02/09/21 01/25/22 Rx folic acid 1 mg tablet 1 mg PO DAILY #30 tabs 02/09/21 01/25/22 Rx meclizine 25 mg tablet 25 mg PO TID PRN dizziness #30 tabs 02/14/21 01/25/22 Rx tamsulosin 0.4 mg capsule 0.4 mg PO DAILY #90 caps 06/29/21 01/25/22 Rx flash glucose sensor (FreeStyle #1 kit 11/25/21 01/25/22 Rx Shawn 2 Sensor kit) insulin aspart U-100 100 unit/mL 4 unit (0.04 mL) subcut TID #15 mL 11/25/21 01/25/22 Rx (3 mL) subcutaneous pen (Novolog Flexpen U-100 Insulin aspart) insulin glargine 100 unit/mL (3 4 unit (0.04 mL) subcut QPM #3 mL 11/25/21 01/25/22 Rx mL) subcutaneous pen (Lantus Solostar U-100 Insulin) rivaroxaban 15 mg tablet (Xarelto) 15 mg PO DAILY #90 tabs 01/16/22 01/25/22 Rx Patient History Medical History Acute diverticulitis Allergic rhinitis Anticoagulant long-term use Anxiety Aortic valve disorder Arthralgia of multiple sites 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 Chronic kidney disease, stage III (moderate) Constipation Diabetes mellitus, type 2 IDDM Diverticulitis of colon Dyslipidemia Elevated prostate specific antigen (PSA) Fatty liver Fecal urgency Gait abnormality Gastroesophageal reflux disease Gastroparesis Generalized muscle weakness Gout Hematuria Hypercholesterolemia History of statin myopathy Hyperlipidemia Idiopathic polyneuropathy Incomplete emptying of bladder Inguinal hernia manager intermediate (current) use of systemic steroids Long-term use of immunosuppressant medication Lower back pain Lumbar disc disease Male erectile disorder of organic origin Memory loss Mitral regurgitation Neuroma Organic impotence Paroxysmal atrial fibrillation Polymyalgia rheumatica Polyneuropathy Positive CROW (antinuclear antibody) Prostate nodule Rheumatoid arthritis Sciatica Seborrheic dermatitis Spinal stenosis of lumbar region Steroid-induced osteoporosis Temporal arteritis TMJ (dislocation of temporomandibular joint) Type 2 diabetes mellitus with neurologic complication Vertigo Vitamin D deficiency Surgical History H/O heart bypass surgery History of adenoidectomy History of appendectomy History of cardiac cath 1999 History of cataract surgery RIGHT CATARACT History of cholecystectomy History of colonoscopy History of cystoscopy History of esophagogastroduodenoscopy (EGD) History of heart valve replacement AORTIC HEART VALVE, 1999. FOLLOWS WITH DR. WADE. History of herniorrhaphy INGUINAL History of tonsillectomy Family History Father Stroke syndrome Brother Stroke syndrome AAA (abdominal aortic aneurysm) Sister AAA (abdominal aortic aneurysm) Lung cancer Unknown Pancreatic cancer Mother Cancer Unknown type in her 80's Denies family history of Ovarian cancer Prostate cancer Coronary heart disease Breast cancer Colorectal cancer Social History Smoking Status: Current some day smoker Tobacco Type: Cigars Cigarettes Per Day: 2 cigars per week; Second Hand Exposure: Yes; Do You Dip or Chew Tobacco: No; Hx Alcohol Use: No Hx Substance Use: No Preferred Language: Pashto Communication Ability: Effective Visual Impairment: Limited Hearing Ability: Normal Job Lithographer Required: No Beliefs That Will Affect Care: None marital status: Current Living Situation: Spouse Current Living Situation Comment: Home with current occupational status: retired 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 HEENT: Normal exam with inspection. CV: Hearth rhythm is irregular. Neck: Supple, no carotid bruits. Lungs: Non-labored and comfortable breathing. Abdomen: Soft, non-tender, non-distended. Skin: No rash or ecchymosis. Extremities: No edema or cyanosis NEUROLOGICAL EXAMINATION: Mental Status: Alert and oriented to place, person and time. Cranial Nerves: II-XII are intact. No nystagmus. Funduscopy: Normal looking optic discs. Motor: 5/5 in all extremities without asymmetry. Right hand intrinsic muscles are 4/5. DTRs: 1+ in upper extremities, 1- in knees and absent in ankles. No Babinski. Tone: Normal without spasticity or rigidity. Sensory: The patient has decreased sensation in distal lower extremities up to knees, to all sensory modalities. He has also decreased sensation in fingertips, worse on the right hand. Coordination: No dysmetria with FTN testing. Speech: Fluent. Comprehension is intact. Gait: The patient can walk independently. He has wide-based walking pattern. No typical ataxia or shuffling. Musculoskeletal: Normal muscle bulk, no atrophy except atrophic intrinsic hand muscles, worse on the right side. Results & Data ([facility]) Vital Signs (Past 12 Hours) Vital Signs Temp Pulse Pulse Resp BP Pulse Ox O2 Del Method 01/26/22 12:29 36.6 C 87 19 163/85 H 98 Room Air 01/26/22 08:14 36.6 C 81 16 126/78 94 Room Air 01/26/22 03:23 36.6 C 74 18 135/74 97 Room Air 01/26/22 01:55 66 Laboratory Results Laboratory Results - last 24 hr 01/25/22 01/25/22 01/25/22 17:07 17:07 17:07 WBC 5.63 RBC 3.55 L Hgb 11.7 L Hct 35.2 L MCV 99.2 MCH 33.0 MCHC 33.2 RDW Std Deviation 48.1 H RDW Coeff of Zita 13.4 Plt Count 147 MPV 10.4 Immature Gran % (Auto) 0.7 Neut % (Auto) 60.4 Lymph % (Auto) 26.6 [place] % (Auto) 9.8 Eos % (Auto) 2.0 Baso % (Auto) 0.5 Neut # (Auto) 3.40 Lymph # (Auto) 1.50 [place] # (Auto) 0.55 Eos # (Auto) 0.11 Baso # (Auto) 0.03 Immature Gran # (Auto) 0.04 H PT 11.8 INR 1.1 APTT 28.5 PTT Ratio 1.0 Sodium Potassium Chloride Carbon Dioxide Anion Gap BUN Creatinine Est Cr Clr Drug Dosing Est GFR ( Amer) Est GFR (Non-Af Amer) BUN/Creatinine Ratio Glucose POC Glucose Estimat Average Glucose Hemoglobin A1c Calcium Magnesium Total Bilirubin AST ALT Alkaline Phosphatase Troponin I High Sens Total Protein Albumin Globulin Albumin/Globulin Ratio Triglycerides Cholesterol LDL Cholesterol, Calc VLDL Cholesterol, Calc HDL Cholesterol Cholesterol/HDL Ratio Urine Color Urine Appearance Urine pH Ur Specific [place] Urine Protein Urine Glucose (UA) Urine Ketones Urine Blood Urine Nitrite Urine Bilirubin Urine Urobilinogen Ur Leukocyte Esterase SARS-CoV-2, RNA, NAAT Blood Type A Negative Antibody Screen POSITIVE A Antibody Identification Anti-D Antibody ID Comment 01/25/22 01/25/22 01/25/22 17:07 18:39 21:10 WBC RBC Hgb Hct MCV MCH MCHC RDW Std Deviation RDW Coeff of Zita Plt Count MPV Immature Gran % (Auto) Neut % (Auto) Lymph % (Auto) [place] % (Auto) Eos % (Auto) Baso % (Auto) Neut # (Auto) Lymph # (Auto) [place] # (Auto) Eos # (Auto) Baso # (Auto) Immature Gran # (Auto) PT INR APTT PTT Ratio Sodium 137 Potassium 4.5 Chloride 104 Carbon Dioxide 27 Anion Gap 6 BUN 28 H Creatinine 1.48 H Est Cr Clr Drug Dosing 32.7 Est GFR ( Amer) 47.9 Est GFR (Non-Af Amer) 41.4 BUN/Creatinine Ratio 18.9 Glucose 199 H POC Glucose 161 H Estimat Average Glucose Hemoglobin A1c Calcium 9.1 Magnesium 2.1 Total Bilirubin 0.5 AST 15 ALT 13 Alkaline Phosphatase 79 Troponin I High Sens 15.4 Total Protein 7.3 Albumin 4.5 Globulin 2.8 Albumin/Globulin Ratio 1.6 Triglycerides Cholesterol LDL Cholesterol, Calc VLDL Cholesterol, Calc HDL Cholesterol Cholesterol/HDL Ratio Urine Color Urine Appearance Urine pH Ur Specific [place] Urine Protein Urine Glucose (UA) Urine Ketones Urine Blood Urine Nitrite Urine Bilirubin Urine Urobilinogen Ur Leukocyte Esterase SARS-CoV-2, RNA, NAAT NEGATIVE Blood Type Antibody Screen Antibody Identification Antibody ID Comment 01/25/22 01/26/22 01/26/22 21:11 06:40 06:40 WBC 4.69 L RBC 3.14 L Hgb 10.5 L Hct 31.2 L MCV 99.4 MCH 33.4 MCHC 33.7 RDW Std Deviation 48.2 H RDW Coeff of Zita 13.4 Plt Count 130 MPV 10.8 Immature Gran % (Auto) 0.6 Neut % (Auto) 59.3 Lymph % (Auto) 25.8 [place] % (Auto) 11.1 Eos % (Auto) 2.6 Baso % (Auto) 0.6 Neut # (Auto) 2.78 Lymph # (Auto) 1.21 [place] # (Auto) 0.52 Eos # (Auto) 0.12 Baso # (Auto) 0.03 Immature Gran # (Auto) 0.03 H PT INR APTT PTT Ratio Sodium 137 Potassium 4.4 Chloride 106 Carbon Dioxide 25 Anion Gap 6 BUN 26 H Creatinine 1.33 Est Cr Clr Drug Dosing 36.4 Est GFR ( Amer) 54.5 Est GFR (Non-Af Amer) 47.1 BUN/Creatinine Ratio 19.5 Glucose 184 H POC Glucose Estimat Average Glucose Hemoglobin A1c Calcium 8.9 Magnesium Total Bilirubin 0.5 AST 13 ALT 11 Alkaline Phosphatase 68 Troponin I High Sens Total Protein 6.5 Albumin 4.0 Globulin 2.5 Albumin/Globulin Ratio 1.6 Triglycerides 116 Cholesterol 214 H LDL Cholesterol, Calc 148 VLDL Cholesterol, Calc 23 HDL Cholesterol 43 Cholesterol/HDL Ratio 5.0 Urine Color Yellow Urine Appearance Clear Urine pH 5.0 Ur Specific [place] 1.039 H Urine Protein Negative Urine Glucose (UA) Negative Urine Ketones Negative Urine Blood Negative Urine Nitrite Negative Urine Bilirubin Negative Urine Urobilinogen Negative Ur Leukocyte Esterase Negative SARS-CoV-2, RNA, NAAT Blood Type Antibody Screen Antibody Identification Antibody ID Comment 01/26/22 01/26/22 01/26/22 06:40 07:30 11:48 WBC RBC Hgb Hct MCV MCH MCHC RDW Std Deviation RDW Coeff of Zita Plt Count MPV Immature Gran % (Auto) Neut % (Auto) Lymph % (Auto) [place] % (Auto) Eos % (Auto) Baso % (Auto) Neut # (Auto) Lymph # (Auto) [place] # (Auto) Eos # (Auto) Baso # (Auto) Immature Gran # (Auto) PT INR APTT PTT Ratio Sodium Potassium Chloride Carbon Dioxide Anion Gap BUN Creatinine Est Cr Clr Drug Dosing Est GFR ( Amer) Est GFR (Non-Af Amer) BUN/Creatinine Ratio Glucose POC Glucose 176 H 120 H Estimat Average Glucose 183 Hemoglobin A1c 8.0 H Calcium Magnesium Total Bilirubin AST ALT Alkaline Phosphatase Troponin I High Sens Total Protein Albumin Globulin Albumin/Globulin Ratio Triglycerides Cholesterol LDL Cholesterol, Calc VLDL Cholesterol, Calc HDL Cholesterol Cholesterol/HDL Ratio Urine Color Urine Appearance Urine pH Ur Specific [place] Urine Protein Urine Glucose (UA) Urine Ketones Urine Blood Urine Nitrite Urine Bilirubin Urine Urobilinogen Ur Leukocyte Esterase SARS-CoV-2, RNA, NAAT Blood Type Antibody Screen Antibody Identification Antibody ID Comment Diagnostic Findings Brain MRI: This study was done by [facility], which showed acute small ischemic strokes involving left thalamus and parietal lobe and territorial posterior cerebral artery. This study also showed chronic lacunar infarcts in bilateral cerebellum, and severe, chronic ischemic subcortical changes.
[2022-01-26] MEDS ORDERED: OPTIRAY 320 500ml IV ONE (13:38)
--- NOTE | 2022-01-26 14:01 | CT Scan Report ---
CT ANGIOGRAPHY OF THE NECK WITH CONTRAST CLINICAL HISTORY: Dizziness. Weakness. Evaluate for acute cerebrovascular accident. COMPARISON STUDY: No previous studies for comparison. Technique: CT angiography of the carotid and vertebral arteries was obtained using Optiray and 3D rec onstruction on an independent workstation. NASCET criteria was utilized. Automated exposure control was utilized for the study. A dose lowering technique was utilized adhering to the principles of ALA RA. CT DOSE: 1164.55 mGy.cm Findings: Visualized portions of the lung apices are unremarkable. There is no cervical lymphadenopat hy. No acute cervical spine fracture is noted. No dissection or aneurysm within the bilateral common carotid, cervical internal carotid or vertebral arteries is present. There is moderate plaque within the carotid bifurcations and proximal bilateral internal carotid arteries without stenosis. CTA of th e head and head CT will be reported separately. A small old infarct within the right cerebellar hemis phere is noted. IMPRESSION: No stenosis or dissection within the bilateral common carotid, cervical internal carotid or vertebral arteries. Moderate atherosclerotic plaque, as above. ACT 112: Negative or not required by law. Electronically signed by: Wu Burrell M.D. 01/26/2022 2:00 PM
--- NOTE | 2022-01-26 14:38 | CT Scan Report ---
CT angio head wo/w HISTORY: 89 years-old Male acute CVA . Acute strokelike symptoms COMPARISON: Head CT 02/07/2018, 03/20/2012 TECHNIQUE: CTA of the head was obtained both with and without the use of 10 cc Optiray 320. 3-D coron al and sagittal MIPS were obtained from the axial data set and were submitted for review. All measure ments were obtained according to NASCET criteria. A dose lowering technique was used consistent with the principals of MAILE. FINDINGS: CT HEAD: No acute intracranial hemorrhage, midline shift, abnormal extra-axial collection, hydrocephalus, acut e territorial infarct or intracranial mass. Involutional changes with chronic microvascular ischemic disease. Chronic cerebellar lacunar infarcts are again noted. Cerebral vascular calcifications. No acute calvarial fracture. Mastoid air cells and paranasal sinuses are generally clear. Unremarkabl e soft tissues. Prior bilateral lens repair. CTA: The imaged internal carotid arteries are patent. Mild luminal narrowing of the right greater than lef t supraclinoid segments of the internal carotid arteries of less than 50%. The middle and right anter ior temporal artery appear patent. The left anterior cerebral artery is likely developmentally diminu tive or absent. The A2 segments appear normal. The distal vertebral arteries and basilar artery are patent. There is mild saccular prominence at the basilar tip which is likely secondary to vessel tortuosity measuring up to 5 mm. No definite aneurys m. Multifocal luminal narrowing of the posterior cerebral arteries which is high-grade within the P2 segment of the right posterior cerebral artery on image 125 series 5. origin of the left surfacing technician ior cerebral artery. IMPRESSION: 1. No acute intracranial abnormality. 2. Involutional changes with chronic microvascular ischemic disease. 3. 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 4. Additional findings as above. ACT 112: Negative or not required by law. The above report was generated using voice recognition software. It may contain grammatical, syntax o r spelling errors. Electronically signed by: Justin Mock M.D. 01/26/2022 2:37 PM
--- NOTE | 2022-01-26 14:58 | Pharmacy Report ---
- Date of Service January 26, 2022 - Pharmacy CVA/TIA Medication Review Medications to Prevent Stroke handout has been added to the patients discharge packet. Antiplatelet(s) * Aspirin 81 mg PO daily Cholesterol * High intensity statin deferred due to past statin intolerance DVT Prophylaxis * On therapeutic dosing of Xarelto 15 mg PO daily Therapeutic Anticoagulation * Hx Afib/Aflutter noted, and patient is currently receiving Xarelto 15 mg PO daily Type 2 Diabetes * Patient has T2DM and is on SC basal/bolus as outpatient. Per Dr. Porter, a diabetes medication with proven CVD benefit will be deferred to their outpatient provider due to familiarity with risks/benefits of such therapies. "Medications to prevent stroke" handout has already been added to the patient's discharge packet, which instructs the patient to follow up with their outpatient provider to evaluate which diabetes medication with proven CVD benefit is best for them
--- NOTE | 2022-01-26 18:44 | XCELERA ---
[id number]
--- NOTE | 2022-01-26 19:02 | Electrocardiogram Report ---
Test Reason : Blood Pressure : / mmHG Vent. Rate : 081 BPM Atrial Rate : 050 BPM P-R Int : 000 ms QRS Dur : 094 ms QT Int : 374 ms P-R-T Axes : 000 053 073 degrees QTc Int : 434 ms Atrial fibrillation Confirmed by Viktor Lam ([id number] on 01/26/2022 7:02:19 PM Referred By: [facility] Confirmed By:Cj Lam
--- NOTE | 2022-01-26 20:35 | Hospitalist Progress Note ---
Date of Service January 26, 2022 Assessment & Plan (1) Acute ischemic stroke: Plan: Presented to PCP with multiple falls and dizziness as an outpatient Outpatient brain MRI showed left parietal and thalamic strokes. 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 Appreciate neurology consultation-add aspirin, assess with CTA head and neck as above, echocardiogram, PT/OT, but likely stable for discharge to home -PT/OT consults placed and will see if needs rehab given multiple falls (2) Permanent atrial fibrillation: Plan: -Currently rate controlled Continue Xarelto-restarted Monitor on telemetry Not on beta-ana laura (3) 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 -Started aspirin -Has not been on a statin due to intolerance, will have to consider other lipid lowering agents 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 (4) Gastroesophageal reflux disease: Plan: -Will start patient on pantoprazole while admitted for stress ulcer prophylaxis (5) Incomplete emptying of bladder: Plan: -Continue flomax -Bladder scan and straight cath orders placed (6) Polymyalgia rheumatica: Plan: -Continue methotrexate and hydroxychloroquine (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: Plan: Continue Accu-Cheks, Lantus and NovoLog Defer to PCP to start SGLT 2 inhibitor or GLP-1 agonist due to stroke in the setting of diabetes (8) Hypertension: Plan: -Hemodynamically stable -Not currently on antihypertensives -Continue to monitor for now (9) Anxiety: Plan: Lorazepam as needed for CT (10) Hypercholesterolemia: Plan: Not tolerant of statins (11) Memory loss: Plan: Noted, mild (12) Carpal tunnel syndrome, right: Plan: Followed as an outpatient Plan DVT prophylaxis-Xarelto Disposition-continued stay, awaiting PT evaluation to see if needs rehab Admission and Anticipated Discharge Date Admission Date: January 25, 2022 Subjective Patient feeling well today. Denies headaches. He has not yet worked with physical therapy. He has intermittent numbness in the right hand this is been ongoing he thinks for a long time. He did have COVID about 6 weeks ago shortly before the falls and dizziness started happening. His and son are at the bedside. No new neurological symptoms. I did discuss his case with neurology. Telemetry with permanent atrial fibrillation with rates in the 80s. Review of Systems Review of Systems: All systems reviewed & are unremarkable except as noted in HPI & below Physical Exam Constitutional: WD/WN, vitals as above Eyes: PERRL, conjunctivae normal, anicteric sclerae EOM intact bilaterally; no anisocoria and no nystagmus ENMT: external ear and nose normal, oropharynx normal Neck: trachea midline, no thyromegaly Respiratory: normal respiratory effort, lungs clear to auscultation Cardiovascular: RRR, no murmur, no edema Chest (Breasts): Chest: normal inspection of chest Gastrointestinal (Abdomen): normal bowel sounds, soft, nontender, no hepatosplenomegaly Musculoskeletal: Extremities: extremities normal to inspection; no cyanosis and no clubbing Skin: no rashes, warm and dry Neurologic: PERRL, EOMI, accommodation nl, no face palsy, no dysarthria CN's II-XI intact bilaterally, moves all extremities and awake; no focal motor deficits and not confused Speech / Cognition: normal speech Motor/Sensory: no tremor, no pronator drift and no sensory deficit Coordination: normal zjrhlr-iv-sgbl test, normal auhy-ph-gwtl test and normal rapid alternating movements Psychiatric: A+Ox3, euthymic affect Lymphatic: no lymphedema Results & Data Results & Data ([facility]) Vital Signs (Past 12 Hours) Vital Signs Temp Pulse Pulse Pulse Resp BP Pulse Ox 01/26/22 20:00 36.7 C 86 20 144/85 H 95 01/26/22 16:00 72 01/26/22 09:30 01/26/22 15:52 36.4 C L 90 18 156/84 H 97 01/26/22 12:29 36.6 C 87 19 163/85 H 98 O2 Del Method 01/26/22 20:00 Room Air 01/26/22 16:00 01/26/22 09:30 Room Air 01/26/22 15:52 Room Air 01/26/22 12:29 Room Air Laboratory Results Labs reviewed Diagnostic Findings Neck CTA 01/26/22 10:18 CT ANGIOGRAPHY OF THE NECK WITH CONTRAST CLINICAL HISTORY: Dizziness. Weakness. Evaluate for acute cerebrovascular accident. COMPARISON STUDY: No previous studies for comparison. Technique: CT angiography of the carotid and vertebral arteries was obtained using Optiray and 3D reconstruction on an independent workstation. NASCET criteria was utilized. Automated exposure control was utilized for the study. A dose lowering technique was utilized adhering to the principles of ALARA. CT DOSE: 1164.55 mGy.cm Findings: Visualized portions of the lung apices are unremarkable. There is no cervical lymphadenopathy. No acute cervical spine fracture is noted. No dissection or aneurysm within the bilateral common carotid, cervical internal carotid or vertebral arteries is present. There is moderate plaque within the carotid bifurcations and proximal bilateral internal carotid arteries without stenosis. CTA of the head and head CT will be reported separately. A small old infarct within the right cerebellar hemisphere is noted. IMPRESSION: No stenosis or dissection within the bilateral common carotid, cervical internal carotid or vertebral arteries. Moderate atherosclerotic plaque, as above. ACT 112: Negative or not required by law. Electronically signed by: Wu Burrell M.D. 01/26/2022 2:00 PM Head CTA 01/26/22 10:38 CT angio head wo/w HISTORY: 89 years-old Male acute CVA . Acute strokelike symptoms COMPARISON: Head CT 02/07/2018, 03/20/2012 TECHNIQUE: CTA of the head was obtained both with and without the use of 10 cc Optiray 320. 3-D coronal and sagittal MIPS were obtained from the axial data set and were submitted for review. All measurements were obtained according to NASCET criteria. A dose lowering technique was used consistent with the principals of ALA. FINDINGS: CT HEAD: No acute intracranial hemorrhage, midline shift, abnormal extra-axial collection, hydrocephalus, acute territorial infarct or intracranial mass. Involutional changes with chronic microvascular ischemic disease. Chronic cerebellar lacunar infarcts are again noted. Cerebral vascular calcifications. No acute calvarial fracture. Mastoid air cells and paranasal sinuses are generally clear. Unremarkable soft tissues. Prior bilateral lens repair. CTA: The imaged internal carotid arteries are patent. Mild luminal narrowing of the right greater than left supraclinoid segments of the internal carotid arteries of less than 50%. The middle and right anterior temporal artery appear patent. The left anterior cerebral artery is likely developmentally diminutive or absent. The A2 segments appear normal. The distal vertebral arteries and basilar artery are patent. There is mild saccular prominence at the basilar tip which is likely secondary to vessel tortuosity measuring up to 5 mm. No definite aneurysm. Multifocal luminal narrowing of the posterior cerebral arteries which is high-grade within the P2 segment of the right posterior cerebral artery on image 125 series 5. orig in of the left posterior cerebral artery. IMPRESSION: 1. No acute intracranial abnormality. 2. Involutional changes with chronic microvascular ischemic disease. 3. 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 4. Additional findings as above. ACT 112: Negative or not required by law. The above report was generated using voice recognition software. It may contain grammatical, syntax or spelling errors. Electronically signed by: Justin Mock M.D. 01/26/2022 2:37 PM PG Care Time/CCT Total # of Minutes Spent Total Time Spent with Patient: Total time spent is greater than 50% in coordination of care (as documented) at patient's floor/unit and/or counseling patient: Coding Level of Care Code 65803 Subseq Hosp Care Lvl 3 Diagnoses Acute ischemic stroke I63.9 Permanent atrial fibrillation I48.21 CAD in [place] artery I25.10 Gastroesophageal reflux disease K21.9 Incomplete emptying of bladder R33.9 Polymyalgia rheumatica M35.3 Type 2 diabetes mellitus with neurologic complication E11.49 Hypertension I10 Anxiety F41.9 Hypercholesterolemia E78.00 Memory loss R41.3 Carpal tunnel syndrome, right G56.01
[2022-01-27 06:19] LABS: Basophils # (auto) 0.03 K/uL (0-0.2); Basophils % (auto) 0.6 %; Eosinophils # (auto) 0.19 K/uL (0-0.50); Eosinophils % (auto) 3.6 %; Hematocrit (blood only) 32.3 % (40.1-51.0); Immature Granulocytes # (auto) 0.03 K/uL (0.00-0.02); Immature Granulocytes % (auto) 0.6 %; Lymphocytes # (auto) 1.42 K/uL (1.2-3.4); Lymphocytes % (auto) 26.6 %; Mean Corpuscular Hemoglobin 33.5 pg (25.0-34.0); Mean Corpuscular Hgb Conc 34.1 g/dL (32.0-36.0); Mean Corpuscular Volume 98.5 fL (80.0-100.0); Mean Platelet Volume 10.4 fL (9.4-12.4); Monocytes # (auto) 0.67 K/uL (0.24-0.82); Monocytes % (auto) 12.6 %; Neutrophils # (auto) 2.99 K/uL (1.4-6.5); Platelet Count 141 K/uL (130-400); RDW Coefficient of Variation 13.5 % (11.5-14.5); RDW Standard Deviation 47.7 fL (36.4-46.3); Red Blood Count 3.28 M/uL (4.63-6.08); White Blood Count 5.33 K/ul (4.8-10.8)
[2022-01-27 06:39] LABS: Albumin Globulin Ratio 1.5 (0.9-2); BUN Creatinine Ratio 16.9 (10-20); Bilirubin,Total 0.6 mg/dl (0.2-1.0); Creatinine Clr Calc Pharmacy 31.5 ml/min; Est GFR (African American) 45.7 ml/min; Est GFR (Non-African American) 39.4 ml/min; Globulin 2.7 gm/dl (2.5-4.0); Potassium 4.3 mmol/L (3.5-5.1); Total Protein 6.7 gm/dl (6.0-8.3)
[2022-01-27] MEDS: ASPIRIN 81 MG ECTAB PO SCH (08:49)
[2022-01-27] MEDS: RIVAROXABAN 15 MG TAB PO SCH (08:49)
[2022-01-27] MEDS: FERROUS SULFATE 325 MG TAB PO SCH (08:51)
[2022-01-27] MEDS: TAMSULOSIN HCL 0.4 MG CAP PO SCH (08:51)
[2022-01-27] MEDS: HYDROXYCHLOROQUINE SULFATE 200 MG TAB PO SCH (08:51)
[2022-01-27] MEDS: FOLIC ACID 1 MG TAB PO SCH (08:51)
[2022-01-27] MEDS: LANTUS PER UNIT CHARGE SQ SCH (08:57)
[2022-01-27] MEDS: INSULIN ASPART PER UNIT SC SCH ×2 (08:57→13:25)
[2022-01-27] MEDS ORDERED: metHOTREXate sodium 2.5 MG TAB PO SCH (09:00)
--- NOTE | 2022-01-27 13:31 | Discharge Summary ---
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 Per the ED, the patient had an outpatient MRI In the ED the patient was found to be afebrile, hemodynamically stable, and stable on RA. Labs were remarkable for WBC WNL, stable Hgb, Cr of 1.48 (baseline appears to be around 1.4), stable electrolytes. Print out of the imaging report from his MRI of the brain shows "Acute lacunar infarctions in the left thalamus and left parietal lobe, both in the territory of the posterior cerebral artery. Severe white matter chronic ischemic changes. Chronic lacunar infarctions in both cerebellar hemispheres.". Prior to admission the patient was given 81 mg of aspirin. At the time of the exam the patient was resting comfortably in bed in no acute distress with his , Son, and Daughter sitting bedside, history was obtained from all. They state that the patient has been having balance issues, dizziness, and recurrent falls since last month. His symptoms are not associated with specific movements and are not consistent. They state that his last fall was last Sunday, he did hit his head but did not lose consciousness. The patient takes his Xarelto consistently but has not been on a Statin for years due to myopathy with multiple different statins. At the time of the exam he does not have complaints besides being hungry. He has not had recent fevers, chills chest pain, SOB, abdominal pain, nausea, dysuria, hematuria, and lower extremity weakness. His son mentioned that the patient will have intermittent periods of BL blurry vision, often when he is trying to read or walk. I spoke with the patient and his family regarding code status, the patient is a full code and his Son is is POA. 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 Please refer to Dr. Contreras's attestation for any changes to the treatment plan. Principal Diagnosis Acute ischemic CVA Discharge Exam Constitutional WD/WN, vitals as above Eyes no anisocoria and no nystagmus Neck trachea midline, no thyromegaly Respiratory normal respiratory effort, lungs clear to auscultation Cardiovascular RRR, no murmur, no edema Chest (Breasts) Chest: normal inspection of chest Gastrointestinal (Abdomen) normal bowel sounds, soft, nontender, no hepatosplenomegaly Musculoskeletal Extremities: extremities normal to inspection; no cyanosis and no clubbing Skin no rashes, warm and dry Neurologic moves all extremities and awake; no focal motor deficits and not confused Speech / Cognition: normal speech Motor/Sensory: no tremor Psychiatric A+Ox3, euthymic affect Lymphatic no lymphedema Discharge Data Allergies Allergy/AdvReac Type Severity Reaction Status Date / Time glyburide Allergy Unknown PT NOT Verified 12/15/21 12:03 AWARE atorvastatin [From Lipitor] AdvReac Mild Muscle Pain Verified 12/15/21 12:03 lovastatin [From Mevacor] AdvReac Mild Muscle Pain Verified 12/15/21 12:03 simvastatin [From Zocor] AdvReac Mild Muscle Pain Verified 12/15/21 12:03 Iyoiefe-DJP-NlZ Reductase AdvReac Mild Muscle Pain Verified 12/15/21 12:03 Inhibitor [Zpnwycw-Fgp-Eip Reductase Inhibitor] ezetimibe AdvReac Unknown ALL Verified 12/15/21 12:03 STATINS GIVE LEG CRAMPS metformin AdvReac Unknown DIARRHEA Verified 12/15/21 12:03 niacin AdvReac Unknown RED FLUSH Verified 12/15/21 12:03 tramadol AdvReac Unknown upset Verified 12/15/21 12:03 stomach Consultations 01/25/22 18:33 ED Decision to Admit Stat 01/25/22 19:49 Consult Neurology Routine Ordered Studies 01/26/22 10:18 CTA neck with con [CT angio neck with con] Urgent 01/26/22 10:38 CTA head wo/w [CT angio head wo/w] Urgent ECHO Hospital Course (1) Acute ischemic stroke: Presented to PCP with multiple falls and dizziness as an outpatient Outpatient brain MRI showed left medial parietal and left thalamic strokes. 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 Echocardiogram with bubble study neg for shunt, no thrombus, with mod-severe MR, preserved EF -continue Xarelto for CVA prevention in setting of permanent Afib -Hemoglobin A1c slightly uncontrolled but okay for his age at 8.0%-defer to PCP for initiation of SGLT2 versus GLP-1 -Not been on a statin due to myopathy on multiple different statins -Appreciate neurology consultation-added aspirin 81mg po daily -PT/OT consults placed -does not qualify for rehab and pt would like to go home without home services as his daughter and son in law are both PTs in the area (2) Permanent atrial fibrillation: -Currently rate controlled Continue Xarelto Not on beta-ana laura (3) 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: continue Lantus and NovoLog Defer to PCP to start SGLT 2 inhibitor or GLP-1 agonist due to stroke in the setting of diabetes (8) Hypertension: -Hemodynamically stable -Not currently on antihypertensives -Continue to monitor for now (9) Anxiety: no treatment (10) Hypercholesterolemia: Not tolerant of statins as above (11) Memory loss: Noted, mild (12) Carpal tunnel syndrome, right: Followed as an outpatient (13) Mitral regurgitation: mod-severe on ECHO here has appt with Cardiology in 2 weeks Plan DVT prophylaxis-Xarelto Disposition-dc to home Discussed his care with and daughter at bedside Total Time Total Time Spent Total Time Spent (In Minutes): 35 min Discharge Plan Discharge Items Patient Disposition: Home - Self-Care Reason For Visit: ACUTE STROKE ON OUTPATIENT MRI Discharge Diagnosis: Acute ischemic strokes, falls Activity: As commented below Bathing: No limitations Exercise/Sports: Gradually increase as tolerated Non-emergency contact: Primary Care Provider and Managed Services Consultant Call non-emergency contact if: you have any medication questions and your symptoms worsen Follow-up/Referrals: Viktor Jones MD [Primary Care Provider] - (Follow up within 1-2 weeks.) Diet: Carb Consistent or DM2 and Heart Healthy Addtl Attending Provider Instructions: You were admitted with falls after you were found to have new strokes on a brain MRI as an outpatient. You had a workup for causes of stroke which did not show anything significant that needs attention. You did have some narrowing of an artery on the right side of your brain but this would not cause you strokes on the left side of the brain where yours were. You were started on a baby aspirin once a day in addition to your Xarelto. Please continue PT at home with your daughter and son-in-law as you desired. For your ongoing urinary issues, please follow up with the Urologist. Your tamsulosin dose was increased to twice a day and you'll need to watch out for lightheadedness with standing as a side effect of this medication. Risk Factors for Stroke: You can reduce your chances of stroke by working with your medical provider to adopt a healthy lifestyle. Some specific ways to lower your chance of stroke are: * If you are a smoker, now is the time to stop smoking cigarettes * If you are diabetic, improve the control of your blood sugars * Avoid excessive amounts of alcohol * Control high blood pressure * Lose weight if you are overweight * Be sure to lead an active lifestyle * Eat a healthy diet low in salt, cholesterol and fat You should know about other risk factors for stroke that you are unable to control. These include: * Age 55 years or older * Male gender * Certain racial groups: , or / * Family History of Stroke, Mini stroke or Heart Attack * Sickle Cell Disease Follow Up: It is important for you to keep your follow up appointments with your medical provider. Who to Call and When: Medical Emergencies: Call 911 immediately if you experience any of the following warning signs and symptoms of Stroke: * Sudden numbness or weakness of the face, arm or leg, especially on one side of the body * Sudden confusion, trouble speaking or understanding * Sudden trouble seeing in one or both eyes * Sudden trouble walking, dizziness, loss of balance or coordination * Sudden severe headache with no cause Do not delay calling 911 if you experience any warning signs or symptoms of a stroke. Delay in seeking medical attention may affect what treatments can be given to you. . Pending Studies at Discharge: No Stand-Alone Forms: [facility], Smoking Cessation, Medications to Prevent Stroke Medications and DC Order Prescriptions: New aspirin 81 mg Tablet,Delayed Release (Dr/Ec) 81 mg PO DAILY Qty: 30 0RF Continued ferrous sulfate 325 mg (65 mg iron) tablet 325 mg PO DAILY Qty: 30 0RF (DME) pen needle, diabetic [BD Ultra-Fine Radha Pen Needle] 32 gauge x 5/32" needle See Rx Instructions .Route Qty: 100 5RF Rx Instructions: As directed Xarelto 15 mg tablet 15 mg PO DAILY Qty: 90 3RF Rx Instructions: must administer with evening meal hydroxychloroquine 200 mg tablet 200 mg PO DAILY Qty: 30 2RF folic acid 1 mg tablet 1 mg PO DAILY Qty: 30 2RF amoxicillin 500 mg capsule 2,000 mg PO .COMPLEX Qty: 4 3RF Rx Instructions: Take 4 capsules by mouth one hour prior to dental procedure; meclizine 25 mg tablet 25 mg PO TID PRN (Reason: dizziness) Qty: 30 4RF insulin aspart U-100 [Novolog Flexpen U-100 Insulin] 100 unit/mL (3 mL) insulin pen 4 unit subcut TID Qty: 15 3RF insulin glargine [Lantus Solostar U-100 Insulin] 100 unit/mL (3 mL) insulin pen 4 unit subcut QPM Qty: 3 3RF (DME) FreeStyle Shawn 2 Sensor Kit See Rx Instructions .Route Qty: 1 6RF Rx Instructions: As directed vitamins A,C,K-jhyy-jbwalz [PreserVision AREDS] See Rx Instructions .ROUTE .COMPLEX Rx Instructions: use as directed Changed tamsulosin 0.4 mg capsule 0.4 mg PO BID Qty: 180 3RF methotrexate sodium 2.5 mg tablet 12.5 mg PO WK Qty: 20 0RF Rx Instructions: TAKE THIS MED EVERY SUNDAY. Discharge Orders: Discharge Order (Routine); Ordered 01/27/22 Ordered By: Cynthia Mitchell/Other Patient Handouts: Managing Type 2 Diabetes Admission Data Admit Date/Time: 01/25/22 19:17 Attending Provider: Cynthia Porter Admit Provider: Ermias Contreras Primary Care Provider: Viktor Jones Other Providers: Ermias Contreras ; Maurisio Velasco ; Bhupinder Alfonso ; Crystal Jarvis ; Nancy Gordillo ; Jono Duarte ; Nancy Baldwin ; Franklin Coronel ; Marjorie Bower ; Felix Ivey ; Nikky Rabago ; Heidi Rosa ; Jono He ; [facility] ; [facility] Coding Level of Care Code D/C DAY MANAGEMENT >30 MINS Diagnoses Acute ischemic stroke I63.9 Permanent atrial fibrillation I48.21 CAD in [place] artery I25.10 Gastroesophageal reflux disease K21.9 Incomplete emptying of bladder R33.9 Polymyalgia rheumatica M35.3 Type 2 diabetes mellitus with neurologic complication E11.49 Hypertension I10 Anxiety F41.9 Hypercholesterolemia E78.00 Memory loss R41.3 Carpal tunnel syndrome, right G56.01 Mitral regurgitation I34.0
[2022-01-27] MEDS ORDERED: STROKE PATIENT DISCHARGE ONE (14:00)
--- NOTE | 2022-01-30 10:02 | Pharmacy Report ---
Pharmacist Stroke Counseling - Date of Service January 30, 2022 - Scope: Pharmacy has been consulted to provide medication discharge counseling for this patient admitted with ischemic stroke as per the Pharmacist Discharge Counseling for Stroke Patients Protocol. - Medications on Discharge: Home Medications Medication Instructions Recorded Confirmed vitamins A,C,T-aofl-npnkzp See Rx Instructions .Route .COMPLEX 09/24/20 01/25/22 [PreserVision AREDS] New Rx's Medication Instructions Recorded hydroxychloroquine 200 mg tablet 200 mg PO DAILY #30 tabs 02/04/20 ferrous sulfate 325 mg (65 mg 325 mg PO DAILY #30 tabs 07/06/20 iron) tablet pen needle, diabetic 32 gauge x #100 ea 11/02/20" (BD Ultra-Fine Radha Pen Needle) amoxicillin 500 mg capsule 2,000 mg PO .COMPLEX #4 caps 02/09/21 folic acid 1 mg tablet 1 mg PO DAILY #30 tabs 02/09/21 meclizine 25 mg tablet 25 mg PO TID PRN dizziness #30 tabs 02/14/21 flash glucose sensor (FreeStyle #1 kit 11/25/21 Shawn 2 Sensor kit) insulin aspart U-100 100 unit/mL 4 unit (0.04 mL) subcut TID #15 mL 11/25/21 (3 mL) subcutaneous pen (Novolog Flexpen U-100 Insulin aspart) insulin glargine 100 unit/mL (3 4 unit (0.04 mL) subcut QPM #3 mL 11/25/21 mL) subcutaneous pen (Lantus Solostar U-100 Insulin) rivaroxaban 15 mg tablet (Xarelto) 15 mg PO DAILY #90 tabs 01/16/22 aspirin 81 mg tablet,delayed 81 mg PO DAILY #30 tabs 01/27/22 release methotrexate sodium 2.5 mg tablet 12.5 mg PO WK #20 tabs 01/27/22 tamsulosin 0.4 mg capsule 0.4 mg PO BID #180 caps 01/27/22 - Action: The above medications, specifically ones for stroke treatment/prophylaxis, have been reviewed in detail with the patient and/or patient credit representative(s) prior to discharge. This includes indication, common adverse reactions, drug interactions, and medication administration. Medication counseling has been employed using the teach-back method to ensure understanding. - Outcome: The patient and/or patient credit representative(s) have demonstrated understanding of the medications. Additional comments: - Patient education provided over the phone to patient and his - They are understanding of medication changes and have begun aspirin 81 mg PO daily - Confirmed that patient was taking Xarelto with evening meal as an outpatient - Reinforced increased bleeding risk of aspirin/Xarelto combination and when to seek medical attention - No concerns/obvious barriers to medication compliance noted Thank you for allowing pharmacy to be involved in the care of this patient. Please call [phone] with any additional questions
== END 2022-01-27 15:10 | disposition home health service (06) | DRG 65 ==
LOC: ED 16:31 → 2N 19:17 → SUATTDRO 19:17 → 2N 21:51

== ENCOUNTER 2022-04-25 00:31 | Inpatient (IN) ==
[2022-04-25] MEDS ORDERED: SODIUM CHLORIDE 0.9% 500 ML IV ONE (00:54)
--- NOTE | 2022-04-25 01:08 | Emergency Department Note ---
ED Visit Note I was consulted by the Advanced Practice Provider. I saw the patient personally and performed a substantive portion of the visit. This includes aspects of the HPI, MDM, diagnostic interpretations, and disposition/plan. .
--- NOTE | 2022-04-25 01:10 | Emergency Department Note ---
History of Present Illness General Chief complaint: Urinary Symptoms Stated complaint: UTI, SEEING THINGS Time Seen by Provider: 04/25/22 00:45 History of Present Illness This is an 89-year-old male presenting to the emergency department for evaluation of lower abdominal discomfort. The patient is accompanied by his who assist in the history. The patient told his today that he was seeing letters and numbers on his skin, and the last time this happened "I ". The patient symptoms began over the past few hours, and he is not seeing anything on his skin at this time. He does have some chronic urinary issues, and is concerned for possible UTI as he has lower abdominal discomfort. This may be more left-sided than central however. He does not have significant chest pain, chest tightness, or shortness of breath. No fevers or chills. He does have past history of aortic valve disorder, coronary artery disease, CKD, diverticulosis, afib, and diabetes. He rates his current discomfort a 4/10. He has not taken anything [id number] for symptoms. Home Medications Medication Instructions Recorded Confirmed Type hydroxychloroquine 200 mg tablet 200 mg PO DAILY #30 tabs 02/04/20 04/25/22 Rx ferrous sulfate 325 mg (65 mg 325 mg PO DAILY #30 tabs 07/06/20 04/25/22 Rx iron) tablet pen needle, diabetic 32 gauge x #100 ea 11/02/20 04/25/22 Rx 5/32" (BD Ultra-Fine Radha Pen Needle) amoxicillin 500 mg capsule 2,000 mg PO .COMPLEX #4 caps 02/09/21 04/25/22 Rx folic acid 1 mg tablet 1 mg PO DAILY #30 tabs 02/09/21 04/25/22 Rx meclizine 25 mg tablet 25 mg PO TID PRN dizziness #30 tabs 02/14/21 04/25/22 Rx flash glucose sensor (FreeStyle #1 kit 11/25/21 04/25/22 Rx Shawn 2 Sensor kit) insulin aspart U-100 100 unit/mL 4 unit (0.04 mL) subcut TID #15 mL 11/25/21 04/25/22 Rx (3 mL) subcutaneous pen (Novolog FlexPen U-100 Insulin aspart) insulin glargine 100 unit/mL (3 4 unit (0.04 mL) subcut QPM #3 mL 11/25/21 04/25/22 Rx mL) subcutaneous pen (Lantus Solostar U-100 Insulin) rivaroxaban 15 mg tablet (Xarelto) 15 mg PO DAILY #90 tabs 01/16/22 04/25/22 Rx aspirin 81 mg tablet,delayed 81 mg PO DAILY #30 tabs 01/27/22 04/25/22 Rx release methotrexate sodium 2.5 mg tablet 12.5 mg PO WK #20 tabs 01/27/22 04/25/22 Rx tamsulosin 0.4 mg capsule 0.4 mg PO BID #180 caps 01/27/22 04/25/22 Rx cholecalciferol (vitamin D3) 50 2,000 unit PO DAILY 03/27/22 04/25/22 History mcg (2,000 unit) capsule ketoconazole 2 % shampoo 1 applic topical 2XWK 03/27/22 04/25/22 History sildenafil 50 mg tablet See Rx Instructions PO DAILY PRN 03/27/22 04/25/22 Rx sexual activity #10 tabs vit C 250 mg-vit E 90 mg-zinc 40 1 tab PO BID 04/25/22 04/25/22 History mg-copper 1 [id number] capsule (PreserVision AREDS-2) Allergies Allergy/AdvReac Type Severity Reaction Status Date / Time glyburide Allergy Unknown PT NOT Verified 03/27/22 09:47 AWARE atorvastatin [From Lipitor] AdvReac Mild Muscle Pain Verified 03/27/22 09:47 lovastatin [From Mevacor] AdvReac Mild Muscle Pain Verified 03/27/22 09:47 simvastatin [From Zocor] AdvReac Mild Muscle Pain Verified 03/27/22 09:47 Hwykszk-XXB-TjO Reductase AdvReac Mild Muscle Pain Verified 03/27/22 09:47 Inhibitor [Apbyqhn-Xfy-Ukl Reductase Inhibitor] ezetimibe AdvReac Unknown ALL Verified 03/27/22 09:47 STATINS GIVE LEG CRAMPS metformin AdvReac Unknown DIARRHEA Verified 03/27/22 09:47 niacin AdvReac Unknown RED FLUSH Verified 03/27/22 09:47 tramadol AdvReac Unknown upset Verified 03/27/22 09:47 stomach Past Med/Surg History Medical History Acute diverticulitis Allergic rhinitis Anticoagulant long-term use Anxiety Aortic valve disorder Arthralgia of multiple sites BPH with obstruction/lower urinary tract symptoms CAD in [place] artery Chronic kidney disease, stage III (moderate) Constipation Diabetes mellitus, type 2 IDDM Diverticulitis of colon Dyslipidemia Elevated prostate specific antigen (PSA) Fatty liver Fecal urgency Gait abnormality Gastroesophageal reflux disease Gastroparesis Generalized muscle weakness Gout Hematuria History of lacunar cerebrovascular accident (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 Hypercholesterolemia History of statin myopathy Hyperlipidemia Idiopathic polyneuropathy Incomplete emptying of bladder Inguinal hernia residential (current) use of systemic steroids Long-term use of immunosuppressant medication Lower back pain Lumbar disc disease Male erectile disorder of organic origin Mitral regurgitation Neuroma Organic impotence Paroxysmal atrial fibrillation Polymyalgia rheumatica Polyneuropathy Positive CROW (antinuclear antibody) Prostate nodule Rheumatoid arthritis Sciatica Seborrheic dermatitis Spinal stenosis of lumbar region 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 FOLLOWS WITH DR. WADE. History of herniorrhaphy INGUINAL History of tonsillectomy Family History Father Stroke syndrome Brother Stroke syndrome AAA (abdominal aortic aneurysm) Sister AAA (abdominal aortic aneurysm) Lung cancer Unknown Pancreatic cancer Mother Cancer Unknown type in her 80's Denies family history of Ovarian cancer Prostate cancer Coronary heart disease Breast cancer Colorectal cancer Social History Smoking Status: Never smoker Tobacco Type: Cigars Age Started Using Tobacco: 32; Age Quit Using Tobacco: 89; Cigarettes Per Day: Quit cigar use in 2022.; Second Hand Exposure: Yes; Hx Alcohol Use: No Hx Substance Use: No Preferred Language: Serbian Communication Ability: Effective Visual Impairment: Limited Hearing Ability: Normal Mat Weaver Required: No Beliefs That Will Affect Care: None marital status: Current Living Situation: Spouse Current Living Situation Comment: Home with current occupational status: retired 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, 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 Feels Safe at Home: Yes Childhood Exposure to Second-Hand Smoke: Yes caffeine: Yes during the past year weight has: remained stable Dental Care, Regularly: No Physical Activity Frequency: Does not Exercise Seatbelt Use: always Sunscreen Use: Yes (sometimes ) Assistive Devices: Cane and Walker Review of Systems A total of 10 systems reviewed and were otherwise negative Physical Exam Vital Signs Vital Signs - 24 hr 04/25/22 00:35 04/25/22 00:49 04/25/22 00:45 Temperature 37 C Temperature Source Temporal Artery Scan Pulse Rate 104 H 92 H Pulse Rate [Bilateral Apical] 96 H Respiratory Rate 18 20 Respiratory Effort / Characteristics Non-Labored Spontaneous Non-Labored Respiratory Depth Normal Normal Respiratory Pattern Blood Pressure 123/79 Blood Pressure [Right Arm] 141/78 H Blood Pressure Mean 93 Blood Pressure Mean [Right Arm] 99 Blood Pressure Position [Right Arm] Pulse Oximetry 96 99 Oxygen Delivery Method Room Air Room Air Sepsis Recent Fever Within 48 Hours No Sepsis New/Unexplained Change in Mental Status No Sepsis Action Taken by Nursing No Action Required 04/25/22 01:15 04/25/22 02:09 04/25/22 02:49 Temperature Temperature Source Pulse Rate 91 H Pulse Rate [Bilateral Apical] 86 77 Respiratory Rate 20 20 20 Respiratory Effort / Characteristics Respiratory Depth Respiratory Pattern Blood Pressure Blood Pressure [Right Arm] 139/75 123/76 Blood Pressure Mean Blood Pressure Mean [Right Arm] 96 91 Blood Pressure Position [Right Arm] Pulse Oximetry 99 96 93 Oxygen Delivery Method Room Air Room Air Room Air Sepsis Recent Fever Within 48 Hours Sepsis New/Unexplained Change in Mental Status Sepsis Action Taken by Nursing 04/25/22 03:23 Temperature Temperature Source Pulse Rate Pulse Rate [Bilateral Apical] 88 Respiratory Rate 18 Respiratory Effort / Characteristics Non-Labored Spontaneous Respiratory Depth Normal Respiratory Pattern Regular Blood Pressure Blood Pressure [Right Arm] 109/66 Blood Pressure Mean Blood Pressure Mean [Right Arm] 80 Blood Pressure Position [Right Arm] Lying Pulse Oximetry 93 Oxygen Delivery Method Room Air Sepsis Recent Fever Within 48 Hours Sepsis New/Unexplained Change in Mental Status Sepsis Action Taken by Nursing VITALS: Vitals are noted on the nurse's note and reviewed by myself. Vital signs stable. GENERAL: Elderly white male who is pleasant and cooperative. He is answering questions appropriately. HEAD: Normocephalic atraumatic. HEART: Irregularly irregular LUNGS: Clear to auscultation bilaterally without wheezes, rales or rhonchi. No retractions or accessory muscle use. ABDOMEN: Positive normal bowel sounds x 4. Soft with tenderness primarily on the left side and left lower quadrant of the abdomen. No rebound or guarding. MUSCULOSKELETAL: No muscle atrophy, erythema, or edema noted. Full range of motion in all extremities. NEURO: Patient was alert and oriented to person place and time. CN II through XII grossly intact. GCS 15. Course Administered Medications Discontinued Medications Sodium Chloride (Nss) 500 mls @ 999 mls/hr IV .Q31M ONE Stop: 04/25/22 01:24 Last Infusion: 04/25/22 01:52 Dose: 0 mls/hr Documented By: Admin: 04/25/22 01:10 Dose: 999 mls/hr Documented By: LIANNE Piperacillin Sod/Tazobactam Sod (Zosyn) 4.5 gm in 120 mls @ 240 mls/hr IV NOW ONE Stop: 04/25/22 03:07 Last Infusion: 04/25/22 03:16 Dose: 0 mls/hr Documented By: Admin: 04/25/22 02:55 Dose: 240 mls/hr Documented By: LIANNE Medical Decision Making Differential Diagnosis Differential diagnosis: Etiologies such as biliary colic, cholecystitis, hepatitis, pancreatitis, cardiac disease, pancreatitis, gastritis, peptic ulcer disease, appendicitis, cystitis, diverticulitis, mesenteric ischemia, inflammatory bowel disease, ileus, bowel obstruction, testicular/adnexal torsion, aortic pathology, shingles, as well as others were considered Laboratory Data 04/25/22 01:10 04/25/22 01:10 Lab Results 04/25/22 04/25/22 04/25/22 Range/Units 01:01 01:10 01:10 WBC (4.8-10.8) K/ul RBC (4.70-6.10) M/uL Hgb (14.0-18.0) g/dl Hct (42.0-52.0) % MCV (80.0-100.0) fL MCH (25.0-34.0) pg MCHC (32.0-36.0) g/dL RDW Std Deviation (36.4-46.3) fL RDW Coeff of Zita (11.5-14.5) % Plt Count (130-400) K/uL MPV (9.4-12.4) fL Immature Gran % (Auto) % Neut % (Auto) % Lymph % (Auto) % [place] % (Auto) % Eos % (Auto) % Baso % (Auto) % Neut # (Auto) (1.40-6.50) K/uL Lymph # (Auto) (1.2-3.4) K/uL [place] # (Auto) (0.11-0.59) K/uL Eos # (Auto) (0-0.50) K/uL Baso # (Auto) (0-0.2) K/uL Immature Gran # (Auto) (0.01-0.20) K/uL PT (9.0-12.0) Seconds INR (0.9-1.1) APTT (21.0-31.0) Seconds PTT Ratio Sodium (136-145) mmol/L Potassium (3.5-5.1) mmol/L Chloride (98-107) mmol/L Carbon Dioxide (21-32) mmol/L Anion Gap (3-11) BUN (6-23) mg/dl Creatinine (0.6-1.4) mg/dl Est Cr Clr Drug Dosing ml/min Est GFR ( Amer) ml/min Est GFR (Non-Af Amer) ml/min BUN/Creatinine Ratio (10-20) Glucose (70-99(Fasting)) mg/dl Lactate 1.8 (0.4-2.0) mmol/L Calcium (8.5-10.1) mg/dl Magnesium (1.7-2.4) mg/dl Total Bilirubin (0.2-1.0) mg/dl AST (13-39) U/L ALT (7-52) U/L Alkaline Phosphatase (34-104) U/L Ammonia (18-72) umol/L Troponin I High Sens (0-20) pg/ml Total Protein (6.0-8.3) gm/dl Albumin (3.4-5.0) gm/dl Globulin (2.5-4.0) gm/dl Albumin/Globulin Ratio (0.9-2) Procalcitonin < 0.05 (0-0.5) ng/ml Urine Color Urine Appearance (Clear) Urine pH (4.5-7.5) Ur Specific [place] (1.000-1.030) Urine Protein (Negative) Urine Glucose (UA) (Negative) Urine Ketones (Negative) Urine Blood (Negative) Urine Nitrite (Negative) Urine Bilirubin (Negative) Urine Urobilinogen (Negative) Ur Leukocyte Esterase (Negative) SARS-CoV-2, RNA, NAAT NEGATIVE (NEGATIVE) 04/25/22 04/25/22 04/25/22 Range/Units 01:10 01:10 01:10 WBC 11.16 H (4.8-10.8) K/ul RBC 3.26 L (4.70-6.10) M/uL Hgb 10.9 L (14.0-18.0) g/dl Hct 31.6 L (42.0-52.0) % MCV 96.9 (80.0-100.0) fL MCH 33.4 (25.0-34.0) pg MCHC 34.5 (32.0-36.0) g/dL RDW Std Deviation 47.4 H (36.4-46.3) fL RDW Coeff of Zita 13.5 (11.5-14.5) % Plt Count 174 (130-400) K/uL MPV 10.9 (9.4-12.4) fL Immature Gran % (Auto) 0.9 % Neut % (Auto) 74.5 % Lymph % (Auto) 12.8 % [place] % (Auto) 10.5 % Eos % (Auto) 1.1 % Baso % (Auto) 0.2 % Neut # (Auto) 8.32 H (1.40-6.50) K/uL Lymph # (Auto) 1.43 (1.2-3.4) K/uL [place] # (Auto) 1.17 H (0.11-0.59) K/uL Eos # (Auto) 0.12 (0-0.50) K/uL Baso # (Auto) 0.02 (0-0.2) K/uL Immature Gran # (Auto) 0.10 (0.01-0.20) K/uL PT 11.3 (9.0-12.0) Seconds INR 1.1 (0.9-1.1) APTT 26.2 (21.0-31.0) Seconds PTT Ratio 1.0 Sodium 135 L (136-145) mmol/L Potassium 4.0 (3.5-5.1) mmol/L Chloride 103 (98-107) mmol/L Carbon Dioxide 25 (21-32) mmol/L Anion Gap 7 (3-11) BUN 30 H (6-23) mg/dl Creatinine 1.44 H (0.6-1.4) mg/dl Est Cr Clr Drug Dosing 30.5 ml/min Est GFR ( Amer) 49.5 ml/min Est GFR (Non-Af Amer) 42.7 ml/min BUN/Creatinine Ratio 20.8 H (10-20) Glucose 216 H (70-99(Fasting)) mg/dl Lactate (0.4-2.0) mmol/L Calcium 9.3 (8.5-10.1) mg/dl Magnesium 1.8 (1.7-2.4) mg/dl Total Bilirubin 0.9 (0.2-1.0) mg/dl AST 11 L (13-39) U/L ALT 7 (7-52) U/L Alkaline Phosphatase 65 (34-104) U/L Ammonia (18-72) umol/L Troponin I High Sens 10.2 (0-20) pg/ml Total Protein 6.7 (6.0-8.3) gm/dl Albumin 4.3 (3.4-5.0) gm/dl Globulin 2.4 L (2.5-4.0) gm/dl Albumin/Globulin Ratio 1.8 (0.9-2) Procalcitonin (0-0.5) ng/ml Urine Color Urine Appearance (Clear) Urine pH (4.5-7.5) Ur Specific [place] (1.000-1.030) Urine Protein (Negative) Urine Glucose (UA) (Negative) Urine Ketones (Negative) Urine Blood (Negative) Urine Nitrite (Negative) Urine Bilirubin (Negative) Urine Urobilinogen (Negative) Ur Leukocyte Esterase (Negative) SARS-CoV-2, RNA, NAAT (NEGATIVE) 04/25/22 04/25/22 Range/Units :28 01:45 WBC (4.8-10.8) K/ul RBC (4.70-6.10) M/uL Hgb (14.0-18.0) g/dl Hct (42.0-52.0) % MCV (80.0-100.0) fL MCH (25.0-34.0) pg MCHC (32.0-36.0) g/dL RDW Std Deviation (36.4-46.3) fL RDW Coeff of Zita (11.5-14.5) % Plt Count (130-400) K/uL MPV (9.4-12.4) fL Immature Gran % (Auto) % Neut % (Auto) % Lymph % (Auto) % [place] % (Auto) % Eos % (Auto) % Baso % (Auto) % Neut # (Auto) (1.40-6.50) K/uL Lymph # (Auto) (1.2-3.4) K/uL [place] # (Auto) (0.11-0.59) K/uL Eos # (Auto) (0-0.50) K/uL Baso # (Auto) (0-0.2) K/uL Immature Gran # (Auto) (0.01-0.20) K/uL PT (9.0-12.0) Seconds INR (0.9-1.1) APTT (21.0-31.0) Seconds PTT Ratio Sodium (136-145) mmol/L Potassium (3.5-5.1) mmol/L Chloride (98-107) mmol/L Carbon Dioxide (21-32) mmol/L Anion Gap (3-11) BUN (6-23) mg/dl Creatinine (0.6-1.4) mg/dl Est Cr Clr Drug Dosing ml/min Est GFR ( Amer) ml/min Est GFR (Non-Af Amer) ml/min BUN/Creatinine Ratio (10-20) Glucose (70-99(Fasting)) mg/dl Lactate (0.4-2.0) mmol/L Calcium (8.5-10.1) mg/dl Magnesium (1.7-2.4) mg/dl Total Bilirubin (0.2-1.0) mg/dl AST (13-39) U/L ALT (7-52) U/L Alkaline Phosphatase (34-104) U/L Ammonia 19.0 (18-72) umol/L Troponin I High Sens (0-20) pg/ml Total Protein (6.0-8.3) gm/dl Albumin (3.4-5.0) gm/dl Globulin (2.5-4.0) gm/dl Albumin/Globulin Ratio (0.9-2) Procalcitonin (0-0.5) ng/ml Urine Color Yellow Urine Appearance Clear (Clear) Urine pH 5.0 (4.5-7.5) Ur Specific [place] 1.019 (1.000-1.030) Urine Protein Negative (Negative) Urine Glucose (UA) Negative (Negative) Urine Ketones Negative (Negative) Urine Blood Negative (Negative) Urine Nitrite Negative (Negative) Urine Bilirubin Negative (Negative) Urine Urobilinogen Negative (Negative) Ur Leukocyte Esterase Negative (Negative) SARS-CoV-2, RNA, NAAT (NEGATIVE) Imaging Data Radiologist's Impression: Preliminary Findings Only See Final Report For Complete Findings CT ABDOMEN & PELVIS Without Contrast: Minimal posterior subpleural atelectasis, otherwise clear lung bases. Borderline cardiomegaly with mild coronary artery calcifications. Atherosclerotic disease of aorta with no aneurysm. Status post cholecystectomy otherwise unremarkable liver and biliary system. Normal pancreas, spleen and bilateral adrenal glands. Mild bilateral perinephric stranding otherwise normal bilateral kidneys. Unremarkable stomach with no hiatal hernia. Nonspecific small bowel with no dilatation to suggest obstruction. Diverticulosis throughout the colon more so of the descending portion and sigmoid. Inflammatory changes at the inferior aspect of the descending colon in the region of a prominent diverticulum with thickening of the wall concerning for diverticulitis. Possible second focus within the mid posterior sigmoid of diverticulitis. Differential diagnosis includes focal colitis. Distinct appendix not visualized with no inflammation to suggest appendicitis. Normal urinary bladder. Borderline prostate enlargement. Degenerative disease of the spine. Radiologist:Sandy Griffin MD ECG Data Attestation: I personally reviewed and interpreted this ECG as follows: Indication: + abdominal pain Additional Comments: Atrial fibrillation @[address] elevation Abnormal ECG When compared with ECG of 25-JAN-2022 17:10, No significant change was found MDM Narrative Physical exam and history were performed. Nursing notes, EMR, and Medication List were personally reviewed. No social concerns were identified as barriers to patients care. Patient appears to have an episode of altered mental status combined with abdominal pain bringing him to the ER. The patient is concerned that he may have a urinary tract infection as he does have pain in the lower abdomen. He does have chronic incontinence. He has not had fevers or chills. IV access was established and labs were obtained. Blood cultures were obtained. Urine was gathered. Patient was gently hydrated as above. He was sent to CT scan for imaging of his belly. An order was placed for continuous cardiac monitoring. The monitor shows a rate of 88 with normal sinus rhythm. Patient's blood work is as above and was reviewed. He has a slightly elevated white count of 11.1. He does not have significant anemia or gross electrolyte imbalance. INR is 1.1. Glucose is 216. Creatinine is 1.44, but he does have chronic kidney disease. Urine does not show obvious infection. Troponin x1 is negative. Procalcitonin, lactic, and COVID are all negative. CT scan was per formed and informally reviewed by myself and formally reviewed by radiology. CT scan does show signs consistent with acute diverticulitis without perforation. Case was discussed with my attending who also independently evaluated the patient and remain involved in care and decision making. Overall the patient does not appear well for discharge home. He does have an acute infection with episodes of altered mental status. He is not altered here in the ER, and will likely do well with IV antibiotics. He was given Zosyn here in the ER. Case was discussed with the on-call hospitalist team who agreed to evaluate the patient here in the ER. Please see their dictation for further patient course, plan, disposition. The chart was completed utilizing [employer] Speech Voice Recognition Software. Grammatical errors, random word insertions, pronoun errors, and incomplete sentences are an occasional consequence of this system due to software limitations, ambient noise, and hardware issues. Any formal questions or concerns about the content, text, or information contained within the body of th is dictation should be directly addressed to the provider for clarification. . Impression & Plan Acute diverticulitis, Altered mental status Discharge Plan Visit Data Chief Complaint: Urinary Symptoms Stated Complaint: UTI, SEEING THINGS ED Provider: Lacy Ace ED Midlevel Provider: Chandler Osborn Discharge Problem: Acute diverticulitis, Altered mental status Forms Stand Alone Forms: My [facility] [address] Prescriptions Prescriptions: No Action ferrous sulfate 325 mg (65 mg iron) tablet 325 mg PO DAILY Qty: 30 0RF (DME) pen needle, diabetic [BD Ultra-Fine Radha Pen Needle] 32 gauge x 5/32" needle See Rx Instructions .Route Qty: 100 5RF Rx Instructions: As directed Xarelto 15 mg tablet 15 mg PO DAILY Qty: 90 3RF Rx Instructions: must administer with evening meal hydroxychloroquine 200 mg tablet 200 mg PO DAILY Qty: 30 2RF folic acid 1 mg tablet 1 mg PO DAILY Qty: 30 2RF amoxicillin 500 mg capsule 2,000 mg PO .COMPLEX Qty: 4 3RF Rx Instructions: Take 4 capsules by mouth one hour prior to dental procedure; meclizine 25 mg tablet 25 mg PO TID PRN (Reason: dizziness) Qty: 30 4RF insulin aspart U-100 [Novolog FlexPen U-100 Insulin] 100 unit/mL (3 mL) insulin pen 4 unit subcut TID Qty: 15 3RF insulin glargine [Lantus Solostar U-100 Insulin] 100 unit/mL (3 mL) insulin pen 4 unit subcut QPM Qty: 3 3RF (DME) FreeStyle Shawn 2 Sensor Kit See Rx Instructions .Route Qty: 1 6RF Rx Instructions: As directed cholecalciferol (vitamin D3) 50 mcg (2,000 unit) capsule 2,000 unit PO DAILY ketoconazole 2 % shampoo 1 applic topical 2XWK sildenafil 50 mg tablet See Rx Instructions PO DAILY PRN (Reason: sexual activity) Qty: 10 0RF Rx Instructions: 50-100 mg orally daily PRN; administer 30 minutes to 4 hours before activity PreserVision AREDS-2 250-90-40-1 mg Capsule 1 tab PO BID aspirin 81 mg Tablet,Delayed Release (Dr/Ec) 81 mg PO DAILY Qty: 30 0RF methotrexate sodium 2.5 mg tablet 12.5 mg PO WK Qty: 20 0RF Rx Instructions: TAKE THIS MED EVERY SUNDAY. tamsulosin 0.4 mg capsule 0.4 mg PO BID Qty: 180 3RF Referrals Referrals: Viktor Jones MD [Primary Care Provider] -
[2022-04-25 01:56] LABS: Basophils # (auto) 0.02 K/uL (0-0.2); Basophils % (auto) 0.2 %; Eosinophils # (auto) 0.12 K/uL (0-0.50); Eosinophils % (auto) 1.1 %; Hematocrit (blood only) 31.6 % (42.0-52.0); Hemoglobin 10.9 g/dl (14.0-18.0); Immature Granulocytes % (auto) 0.9 %; Lymphocytes # (auto) 1.43 K/uL (1.2-3.4); Lymphocytes % (auto) 12.8 %; Mean Corpuscular Hemoglobin 33.4 pg (25.0-34.0); Mean Corpuscular Hgb Conc 34.5 g/dL (32.0-36.0); Mean Corpuscular Volume 96.9 fL (80.0-100.0); Mean Platelet Volume 10.9 fL (9.4-12.4); Monocytes # (auto) 1.17 K/uL (0.11-0.59); Monocytes % (auto) 10.5 %; Neutrophils # (auto) 8.32 K/uL (1.40-6.50); Neutrophils % (auto) 74.5 %; Platelet Count 174 K/uL (130-400); RDW Coefficient of Variation 13.5 % (11.5-14.5); RDW Standard Deviation 47.4 fL (36.4-46.3); Red Blood Count 3.26 M/uL (4.70-6.10); White Blood Count 11.16 K/ul (4.8-10.8)
[2022-04-25 02:04] LABS: Albumin Globulin Ratio 1.8 (0.9-2); Albumin Level 4.3 gm/dl (3.4-5.0); BUN Creatinine Ratio 20.8 (10-20); Bilirubin,Total 0.9 mg/dl (0.2-1.0); Calcium 9.3 mg/dl (8.5-10.1); Creatinine Clr Calc Pharmacy 30.5 ml/min; Est GFR (African American) 49.5 ml/min; Est GFR (Non-African American) 42.7 ml/min; Globulin 2.4 gm/dl (2.5-4.0); Magnesium 1.8 mg/dl (1.7-2.4); Total Protein 6.7 gm/dl (6.0-8.3)
[2022-04-25 02:04] LABS: Appearance Urine Clear (Clear); Bilirubin Urine Negative (Negative); Blood Urine Negative (Negative); Color Urine Yellow; Glucose Urine UA Negative (Negative); Ketones Urine Negative (Negative); Leukocyte Esterase Urine Negative (Negative); Nitrite Urine Negative (Negative); Protein Urine Negative (Negative); Specific Gravity Urine 1.019 (1.000-1.030); Urobilinogen Urine Negative (Negative)
[2022-04-25 02:11] LABS: Troponin I High Sensitivity 10.2 pg/ml (0-20)
[2022-04-25 02:20] LABS: INR 1.1 (0.9-1.1); Partial Thromboplastin Time 26.2 Seconds (21.0-31.0); Prothrombin Time 11.3 Seconds (9.0-12.0)
[2022-04-25] MEDS ORDERED: PIPERACILLIN/TAZOBACTAM 4.5 GM/120 ML BAG IV ONE (02:38)
--- NOTE | 2022-04-25 02:58 | History & Physical Report ---
Date of Service April 25, 2022 Assessment & Plan (1) Diverticulitis of colon: Plan: -Hemodynamically stable at present, not septic on admission -Initial CTAP per STATRAD read concerning for diverticulitis of descending colon/sigmoid, no abscesses, strictures or perforations, final reading pending- will treat as acute uncomplicated diverticulitis -ED course- received Zosyn, BCx pending -Switched antibiotic course to Unasyn/Flagyl in hopes of transition to eventual Augmentin/Flagyl on discharge -Zofran PRN nausea, Tylenol PRN pain -Continue mIVF NSS -Deferred general surgery consult on admission given pt is without acute abdomen (2) Permanent atrial fibrillation: Plan: -Chronic, stable -Rate controlled currently -Continue Xarelto for anticoagulation (3) Chronic kidney disease, stage III (moderate): Plan: -Baseline Cr appears 1.4-1.6 -No LEENA at present -Trend BMP (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: Plan: -Insulin dependent DM2 -Last A1C of 8.0% in 01/2022 -BSG of 216 on admission (pt did receive steroid injection for hip osteoarthritis in previous week) -Initiate basal insulin + SSI once pt tolerating diet (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, stable -Continue tamsulosin (6) CAD in [place] artery: Plan: -Continue aspirin -Mg 1.8 on admission, repleted with goal Mg >2 -K 4.0 on admission, goal K > 4 (7) Rheumatoid aortitis: Plan: -Chronic, stable, no acute flare at present -On hydroxychloroquine and methotrexate as home regimen Plan FENGI: Clear liquid Code status: Full DVT ppx: Xarelto Isolation: None Dispo: Medical/surgical History of Present Illness Chief Complaint: Abdominal pain Primary Care Provider: Viktor Jones MD 89 yo M with complex PMH including permanent atrial fibrillation on Xarelto, CAD s/p bypass, DM2, RA, CKD3, 2x previous episodes of diverticulitis presenting with abdominal pain and confusion. Pt's provides most of history. Shortly before going to bed, pt told he was seeing letters/numbers on his skin which had been occurring for past few hours. He also reported some dysuria with lower abdominal pain greatest in the LLQ. Pt arrived to ER hemodynamically stable. WBC 11, Hgb 11, Na 135, Cr 1.44, glucose 216, Mg 1.8. CBC, CMP, troponin, UA otherwise unremarkable. EKG with atrial fibrillation, rate 86. CTAP initial STATRAD read suggestive of descending colon/sigmoid diverticulitis without abscess or perforation. Pt received IVF NSS and Zosyn in ER. On my evaluation, pt reports continued LLQ abdominal pain but no other symptoms. Allergies Allergy/AdvReac Type Severity Reaction Status Date / Time glyburide Allergy Unknown PT NOT Verified 03/27/22 09:47 AWARE atorvastatin [From Lipitor] AdvReac Mild Muscle Pain Verified 03/27/22 09:47 lovastatin [From Mevacor] AdvReac Mild Muscle Pain Verified 03/27/22 09:47 simvastatin [From Zocor] AdvReac Mild Muscle Pain Verified 03/27/22 09:47 Kbppogs-FPJ-AnK Reductase AdvReac Mild Muscle Pain Verified 03/27/22 09:47 Inhibitor [Stmurni-Jky-Ryj Reductase Inhibitor] ezetimibe AdvReac Unknown ALL Verified 03/27/22 09:47 STATINS GIVE LEG CRAMPS metformin AdvReac Unknown DIARRHEA Verified 03/27/22 09:47 niacin AdvReac Unknown RED FLUSH Verified 03/27/22 09:47 tramadol AdvReac Unknown upset Verified 03/27/22 09:47 stomach Home Medications Medication Instructions Recorded Confirmed Type hydroxychloroquine 200 mg tablet 200 mg PO DAILY #30 tabs 02/04/20 04/25/22 Rx ferrous sulfate 325 mg (65 mg 325 mg PO DAILY #30 tabs 07/06/20 04/25/22 Rx iron) tablet pen needle, diabetic 32 gauge x #100 ea 11/02/20 04/25/22 Rx 5/32" (BD Ultra-Fine Radha Pen Needle) amoxicillin 500 mg capsule 2,000 mg PO .COMPLEX #4 caps 02/09/21 04/25/22 Rx folic acid 1 mg tablet 1 mg PO DAILY #30 tabs 02/09/21 04/25/22 Rx meclizine 25 mg tablet 25 mg PO TID PRN dizziness #30 tabs 02/14/21 04/25/22 Rx flash glucose sensor (FreeStyle #1 kit 11/25/21 04/25/22 Rx Shawn 2 Sensor kit) insulin aspart U-100 100 unit/mL 4 unit (0.04 mL) subcut TID #15 mL 11/25/21 Rx (3 mL) subcutaneous pen (Novolog FlexPen U-100 Insulin aspart) insulin glargine 100 unit/mL (3 4 unit (0.04 mL) subcut QPM #3 mL 11/25/21 04/25/22 Rx mL) subcutaneous pen (Lantus Solostar U-100 Insulin) rivaroxaban 15 mg tablet (Xarelto) 15 mg PO DAILY #90 tabs 01/16/22 04/25/22 Rx aspirin 81 mg tablet,delayed 81 mg PO DAILY #30 tabs 01/27/22 04/25/22 Rx release methotrexate sodium 2.5 mg tablet 12.5 mg PO WK #20 tabs 01/27/22 04/25/22 Rx tamsulosin 0.4 mg capsule 0.4 mg PO BID #180 caps 01/27/22 04/25/22 Rx cholecalciferol (vitamin D3) 50 2,000 unit PO DAILY 03/27/22 04/25/22 History mcg (2,000 unit) capsule ketoconazole 2 % shampoo 1 applic topical 2XWK 03/27/22 04/25/22 History sildenafil 50 mg tablet See Rx Instructions PO DAILY PRN 03/27/22 04/25/22 Rx sexual activity #10 tabs vit C 250 mg-vit E 90 mg-zinc 40 1 tab PO BID 04/25/22 04/25/22 History mg-copper 1 wl-nlhnyi-qfydgc capsule (PreserVision AREDS-2) Past Med/Surg History Medical History Acute diverticulitis Allergic rhinitis Anticoagulant long-term use Anxiety Aortic valve disorder Arthralgia of multiple sites 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, stage III (moderate) Constipation Diabetes mellitus, type 2 IDDM Diverticulitis of colon Dyslipidemia Elevated prostate specific antigen (PSA) Fatty liver Fecal urgency Gait abnormality Gastroesophageal reflux disease Gastroparesis Generalized muscle weakness Gout Hematuria History of lacunar cerebrovascular accident (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 Hypercholesterolemia History of statin myopathy Hyperlipidemia Idiopathic polyneuropathy Incomplete emptying of bladder Inguinal hernia skilled nursing (current) use of systemic steroids Long-term use of immunosuppressant medication Lower back pain Lumbar disc disease Male erectile disorder of organic origin Mitral regurgitation Neuroma Organic impotence Paroxysmal atrial fibrillation Polymyalgia rheumatica Polyneuropathy Positive CROW (antinuclear antibody) Prostate nodule Rheumatoid arthritis Sciatica Seborrheic dermatitis Spinal stenosis of lumbar region 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 FOLLOWS WITH DR. WADE. History of herniorrhaphy INGUINAL History of tonsillectomy Family History Father Stroke syndrome Brother Stroke syndrome AAA (abdominal aortic aneurysm) Sister AAA (abdominal aortic aneurysm) Lung cancer Unknown Pancreatic cancer Mother Cancer Unknown type in her 80's Denies family history of Ovarian cancer Prostate cancer Coronary heart disease Breast cancer Colorectal cancer Social History Smoking Status: Former smoker Tobacco Type: Cigars Age Started Using Tobacco: 32; Age Quit Using Tobacco: 89; Cigarettes Per Day: Quit cigar use in 2022.; Smoking End Date: 2022; Second Hand Exposure: Yes; Hx Alcohol Use: No Hx Substance Use: No Preferred Language: [place]se Communication Ability: Effective Visual Impairment: Limited Hearing Ability: Normal Automotive Exhaust Emissions Technician Required: No Beliefs That Will Affect Care: Shinto Shinto Beliefs: CONGREGATIONAL marital status: Current Living Situation: Spouse Current Living Situation Comment: Home with current occupational status: retired 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, 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 Feels Safe at Home: Yes Safety Concerns: Feels Safe At This Time Childhood Exposure to Second-Hand Smoke: Yes caffeine: Yes during the past year weight has: remained stable Dental Care, Regularly: No Physical Activity Frequency: Does not Exercise Seatbelt Use: always Sunscreen Use: Yes (sometimes ) Assistive Devices: Cane and Walker Review of Systems Review of Systems: Per HPI Physical Exam Constitutional: no acute distress Eyes: EOM intact bilaterally; no conjunctival abnormality and sclerae not anicteric ENMT: Nose: no external nose abnormality and face symmetric Neck: trachea midline Thyroid: normal thyroid Respiratory: normal respiratory effort, lungs clear to auscultation no dullness to percussion Auscultation: lungs clear to auscultation bilaterally; no rales, no rhonchi and no wheezes Cardiovascular: Rate/Rhythm: regular rate and + irregularly irregular Heart Sounds: normal S1 and normal S2; no gallop, no murmur (No murmur appreciated today) and no cardiac rub Vessels: normal carotid upstroke; no JVD and no carotid bruit Extremities: no edema Chest (Breasts): Chest: normal inspection of chest Gastrointestinal (Abdomen): Inspection/Auscultation: abdomen normal to inspection and normal bowel sounds; abdomen not distended and no visible herniation Percussion/Palpation: + abdomen tender (LLQ) and abdomen soft; no guarding and no hepatosplenomegaly Musculoskeletal: Head/Neck/Chest: normocephalic, head atraumatic and neck supple Extremities: extremities normal to inspection; no cyanosis and no clubbing Skin: normal turgor; no rashes and no lesions Neurologic: CN's II-XI intact bilaterally, moves all extremities and + focal motor deficit Speech / Cognition: normal speech Cranial Nerves: EOM intact bilaterally 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 Psychiatric: Orientation: alert and oriented x 3 Eye Contact: good eye contact Motor Behavior: no abnormal motor movements Speech: no pressured speech Affect: euthymic affect Lymphatic: no preauricular lymphadenopathy, no cervical lymphadenopathy and no subclavicular lymphadenopathy Results & Data Results & Data ([facility]) Vital Signs (Past 12 Hours) Vital Signs Temp Pulse Pulse Resp BP BP Pulse Ox 04/25/22 02:49 77 20 123/76 93 04/25/22 02:09 86 20 139/75 96 04/25/22 01:15 91 H 20 99 04/25/22 00:45 92 H 04/25/22 00:49 96 H 20 141/78 H 99 04/25/22 00:35 37 C 104 H 18 123/79 96 O2 Del Method 04/25/22 02:49 Room Air 04/25/22 02:09 Room Air 04/25/22 01:15 Room Air 04/25/22 00:45 04/25/22 00:49 Room Air 04/25/22 00:35 Room Air Supervising Physician Co-Signing Physician Notes Attending addendum: I have physically seen this patient, have supervised the medical residents activities, and agree with the H&P unless as otherwise noted. Assessment and Plan: Diverticulitis of colon- Zosyn 4.5 g IV given from the ED Admit on Unasyn and Flagyl IV Zofran 4 mg IV every 6 hours as needed Acetaminophen 650 mg every 6 hours as needed for mild pain or fever NSS at 80 mils per hour Permanent atrial fibrillation/CAD- Continuing Xarelto, aspirin Optimize magnesium and potassium CKD stage III- Creatinine in usual range Diabetes mellitus type 2- Insulin glargine 4 units subcu daily Placed on Accu-Cheks with NovoLog SSI BPH with LUTS- Continue tamsulosin Remaining orders and notations as noted Resident Activity Tracking Resident Involvement: Resident Care Provided Care Provided: Adult Hospital Medicine
[2022-04-25] MEDS ORDERED: ACETAMINOPHEN 325 MG TAB PO PRN (05:35)
[2022-04-25] MEDS ORDERED: ONDANSETRON INJ 2 MG/ML 2 ML VIAL IV PRN (05:35)
[2022-04-25] MEDS ORDERED: SODIUM CHLORIDE 0.9% 1000ML 1,000 ML IV SCH (05:35)
[2022-04-25] MEDS ORDERED: metroNIDAZOLE 500 MG/100 ML BAG IV SCH (06:00)
[2022-04-25] MEDS: AMPICILLIN/SULBACTAM SOD 1,500 MG in 0.9 % SODIUM CHLORIDE 100 ML IV SCH ×2 (06:08→12:00)
[2022-04-25] MEDS: MAGNESIUM SULFATE / D5W 1 GM/100 ML BAG IV SCH ×2 (07:26→09:18)
--- NOTE | 2022-04-25 07:46 | CT Scan Report ---
ABDOMEN AND PELVIS CT WITHOUT CONTRAST CT DOSE: 874.66 mGy.cm HISTORY: left lower abd pain TECHNIQUE: Multiaxial CT images of the abdomen and pelvis were performed without contrast. A dose lo wering technique was utilized adhering to the principles of ALARA. COMPARISON STUDY: Abdomen and pelvis CT 05/21/2020. FINDINGS: A stable 4 mm subpleural nodule within the right middle lobe on image 5. This is likely marcelino ign. Otherwise, the lung bases are clear. No pneumoperitoneum. No pneumatosis. No acute fractures ha ntified. The unenhanced liver, spleen, adrenal glands, and pancreas unremarkable. Prior cholecystecto my. No renal stones or hydronephrosis. No retroperitoneal lymphadenopathy. Calcified plaque within th e normal caliber abdominal aorta. The bladder is unremarkable. No pelvic lymphadenopathy or pelvic fr ee fluid. Multiple colonic diverticula. There are 2 separate areas of bowel wall thickening with mary colonic fat stranding within the mid sigmoid colon and distal descending colon consistent with a sepa rate areas of acute diverticulitis. No perforation or abscess identified at this time. No evidence fo r a bowel obstruction. IMPRESSION: 1. Acute diverticulitis involving the distal descending colon and mid sigmoid colon. No perforation o r abscess. Consider follow-up colonoscopy once the diverticulitis has resolved to exclude the less li georges possibility of an underlying colonic lesion at these areas. 2. No evidence for a bowel obstruction. ACT 112: Negative or not required by law. Electronically signed by: Aleksandar Lopes M.D. 04/25/2022 7:45 AM
[2022-04-25] MEDS: ASPIRIN 81 MG ECTAB PO SCH (09:33)
[2022-04-25] MEDS: TAMSULOSIN HCL 0.4 MG CAP PO SCH ×2 (09:33→19:31)
--- NOTE | 2022-04-25 10:15 | Electrocardiogram Report ---
Test Reason : Blood Pressure : / mmHG Vent. Rate : 086 BPM Atrial Rate : 241 BPM P-R Int : 000 ms QRS Dur : 096 ms QT Int : 346 ms P-R-T Axes : 000 029 059 degrees QTc Int : 414 ms Atrial fibrillation Nonspecific ST and T wave abnormality Abnormal ECG When compared with ECG of 25-JAN-2022 17:10, No significant change was found Confirmed by Jonnathan Prabhakar ([id number]) on 04/25/2022 10:14:50 AM Referred By: REFERRED SELF Confirmed By:Jonnathan Prabhakar
[2022-04-25] MEDS ORDERED: PHARMACY GLYCEMIC MGMT CONSULT PRN (12:27)
[2022-04-25] MEDS ORDERED: GLUCOSE 40% GEL 15 GM TUBE PO PRN (12:45)
[2022-04-25] MEDS ORDERED: CARBOHYDRATES FOR HYPOGLYCEMIA PO PRN (12:45)
[2022-04-25] MEDS ORDERED: GLUCAGON FOR INJ 1 MG VIAL IM PRN (12:45)
[2022-04-25] MEDS ORDERED: GLUCOSE 10 TAB/TUBE PO PRN (12:45)
[2022-04-25] MEDS ORDERED: DEXTROSE 50% 50 ML SYRINGE IV PRN (12:45)
--- NOTE | 2022-04-25 13:10 | Hospitalist Progress Note ---
Date of Service April 25, 2022 Assessment & Plan (1) Acute diverticulitis: Plan: - Change to IV Zosyn 3.375 q 8H monotherapy - Tolerating clear liquid diet - Zofran prn - Possibly to consider a repeat colonoscopy in 6-8 weeks after acute diverticulitis flare resolves Last colonoscopy 05/28/2020 with [facility] Discussed this with patient and he states he does not think he wishes to have any further colonoscopies and definitely is not interested in any surgery (2) A-fib: Plan: -Chronic, stable -Rate controlled currently -Continue Xarelto for anticoagulation (3) Diabetes: Plan: HgbA1C 8% 01/26/22 At home on Lantus 4 units HS and Novolog 4 unts TID Has glucose monitor in place right upper arm - Tolerating clear liquid diet - Pharmacy consulted for glycemic control (4) Osteoarthritis of left hip: Plan: - Follows with [facility] Dr Carvajal - Had recent Oral Prednisone treatment 04/14/22 and also steroid injection 04/20/22 (5) Chronic kidney disease: Plan: -Baseline Cr appears 1.4-1.6 -No LEENA at present -Trend BMP -Cr 1.44 (1.54) (6) Metabolic encephalopathy: Plan: - stated patient was seeing "letters and numbers" on his abdomen Currently resolved and no further encephalopathy - NH3 level normal, U/A normal, normal procalcitonin - Possible secondary to acute diverticulitis/infection - Possible secondary to recent steroid usage Blood Cultures pending TSH 05/2021 - 3.66 Admission and Anticipated Discharge Date Admission Date: April 25, 2022 Subjective Patient was awake in bed and states he is feeling slightly better but still with LLQ abdominal pain. He states just laying in bed his pain is about a 3/10. He deneis any nausea or vomiting. Last BM was 2 days ago and was normal and no bleeding. He admits to eating more nuts and popcorn and not a high fiber diet. He tells me he did have a bout of diverticulitis about 8 years ago. His last colo was 2020 with [facility]. Review of Systems Review of Systems: Patient complains of left hip pain and left leg weakness and follows with [facility] Denies any chest pain, SOB, dyspnea, nausea, vomiting, urinary sxs, hematochezia or melena All other ROS negative unless stated otherwise Constitutional: + weakness; no fever, no chills and no weight loss Physical Exam Constitutional: WD/WN, vitals as above Respiratory: normal respiratory effort, lungs clear to auscultation Cardiovascular: Rate/Rhythm: + irregularly irregular Heart Sounds: normal S1, normal S2, + click and + murmur Extremities: + varicosities; no calf tenderness and no edema Gastrointestinal (Abdomen): Inspection/Auscultation: abdomen normal to inspection and normal bowel sounds; abdomen not distended Percussion/Palpation: + abdomen tender and abdomen soft tender to aplaption LLQ, + voluntary guarding no rebound or ridigity Skin: no rashes, warm and dry Neurologic: patellar DTR's 2+ bilat, sensation intact and PERRL, EOMI, accommodation nl, no face palsy, no dysarthria Psychiatric: A+Ox3, euthymic affect Results & Data Results & Data ([facility]) Vital Signs (Past 12 Hours) Vital Signs Temp Pulse Pulse Pulse Resp BP Pulse Ox 04/25/22 12:02 36.7 C 70 15 131/73 99 04/25/22 08:12 36.6 C 80 14 122/64 97 04/25/22 05:00 36.7 C 82 20 138/75 94 04/25/22 05:08 04/25/22 03:23 88 18 109/66 93 04/25/22 02:49 77 20 123/76 93 04/25/22 02:09 86 20 139/75 96 04/25/22 01:15 91 H 20 99 O2 Del Method 04/25/22 12:02 Room Air 04/25/22 08:12 Room Air 04/25/22 05:00 Room Air 04/25/22 05:08 Room Air 04/25/22 03:23 Room Air 04/25/22 02:49 Room Air 04/25/22 02:09 Room Air 04/25/22 01:15 Room Air Laboratory Results Abnormal lab results 04/25/22 04/25/22 04/25/22 Range/Units 01:10 01:10 05:04 WBC 11.16 H (4.8-10.8) K/ul RBC 3.26 L (4.70-6.10) M/uL Hgb 10.9 L (14.0-18.0) g/dl Hct 31.6 L (42.0-52.0) % RDW Std Deviation 47.4 H (36.4-46.3) fL Neut # (Auto) 8.32 H (1.40-6.50) K/uL [place] # (Auto) 1.17 H (0.11-0.59) K/uL Sodium 135 L (136-145) mmol/L BUN 30 H (6-23) mg/dl Creatinine 1.44 H (0.6-1.4) mg/dl BUN/Creatinine Ratio 20.8 H (10-20) Glucose 216 H (70-99(Fasting)) mg/dl POC Glucose 178 H (70-99) mg/dl AST 11 L (13-39) U/L Globulin 2.4 L (2.5-4.0) gm/dl 04/25/22 Range/Units 11:59 WBC (4.8-10.8) K/ul RBC (4.70-6.10) M/uL Hgb (14.0-18.0) g/dl Hct (42.0-52.0) % RDW Std Deviation (36.4-46.3) fL Neut # (Auto) (1.40-6.50) K/uL [place] # (Auto) (0.11-0.59) K/uL Sodium (136-145) mmol/L BUN (6-23) mg/dl Creatinine (0.6-1.4) mg/dl BUN/Creatinine Ratio (10-20) Glucose (70-99(Fasting)) mg/dl POC Glucose 252 H (70-99) mg/dl AST (13-39) U/L Globulin (2.5-4.0) gm/dl Diagnostic Findings Abdomen/Pelvis CT 04/25/22 01:[address] WITHOUT CONTRAST CT DOSE: 874.66 mGy.cm HISTORY: left lower abd pain TECHNIQUE: Multiaxial CT images of the abdomen and pelvis were performed without contrast. A dose lowering technique was utilized adhering to the principles of ALARA. COMPARISON STUDY: Abdomen and pelvis CT 05/21/2020. FINDINGS: A stable 4 mm subpleural nodule within the right middle lobe on image 5. This is likely benign. Otherwise, the lung bases are clear. No pneumoperitoneum. No pneumatosis. No acute fractures identified. The unenhanced liver, spleen, adrenal glands, and pancreas unremarkable. Prior cholecystectomy. No renal stones or hydronephrosis. No retroperitoneal lymphadenopathy. Calcified plaque within the normal caliber abdominal aorta. The bladder is unremarkable. No pelvic lymphadenopathy or pelvic free fluid. Multiple colonic diverticula. There are 2 separate areas of bowel wall thickening with pericolonic fat stranding within the mid sigmoid colon and distal descending colon consistent with a separate areas of acute diverticulitis. No perforation or abscess identified at this time. No evidence for a bowel obstruction. IMPRESSION: 1. Acute diverticulitis involving the distal descending colon and mid sigmoid colon. No perforation or abscess. Consider follow-up colonoscopy once the diverticulitis has resolved to exclude the less likely possibility of an underlying colonic lesion at these areas. 2. No evidence for a bowel obstruction. ACT 112: Negative or not required by law. Electronically signed by: Aleksandar Lopes M.D. 04/25/2022 7:45 AM PG Care Time/CCT Total # of Minutes Spent Total Time Spent with Patient: Total time spent is greater than 50% in coordination of care (as documented) at patient's floor/unit and/or counseling patient: Coding Level of Care Code None Diagnoses Acute diverticulitis K57.92 A-fib I48.91 Diabetes E11.9 Osteoarthritis of left hip M16.12 Chronic kidney disease N18.9 Metabolic encephalopathy G93.41
[2022-04-25] MEDS: INSULIN ASPART PER UNIT SC SCH ×3 (13:26→21:11)
[2022-04-25] MEDS ORDERED: PIPERACILLIN/TAZOBACTAM 3.375 GM in DEXTROSE 5% 100 ML IV SCH (13:30)
[2022-04-25] MEDS ORDERED: PIPERACILLIN/TAZOBACTAM 3.375 GM (over 30 mins) IV ONE (13:45)
--- NOTE | 2022-04-25 13:59 | Pharmacy Report ---
Pharmacy Glycemic Short Note 2 - Date of Service April 25, 2022 - Glycemic Short BSG Results (Last 24 hours): 04/25/22 04/25/22 04/25/22 01:10 05:04 11:59 Glucose 216 H POC Glucose 178 H 252 H OUTPATIENT ANTIDIABETIC REGIMEN: * Lantus 4 units SC HS * Novolog 4 units SC TID HbA1c: 8% (01/26/22) ASSESSMENT: * GH is a 89 year old male admitted for inpatient treatment of uncomplicated diverticulitis * Currently receiving Zosyn monotherapy * Pharmacy consulted for glycemic management at lunchtime today for BSG of 252 mg/dL * Patient is on minimal insulin at home with reasonable A1c in light of age * Currently ordered clear liquid diet PLAN FOR INPATIENT GLYCEMIC CONTROL: * Hold outpatient oral diabetes medications * Basal insulin * hold basal for now * Bolus insulin * NovoLog per scale ACHS or Q6hrs while NPO * Goal Range: Low 120 mg/dL - High 160 mg/dL * Correction Factor: 35 mg/dL/unit * Nutritional / Prandial insulin per carb ratio of 1 unit per 12 grams CHO consumed * 00,04 checks overnight
[2022-04-25] MEDS: RIVAROXABAN 15 MG TAB PO SCH (15:08)
[2022-04-25] MEDS: PIPERACILLIN/TAZOBACTAM 3.375 GM CI (over 4 hrs) IV SCH (18:12)
[2022-04-25] MEDS ORDERED: POLYETHYLENE (MIRALAX) 17 GM PACK PO PRN (22:54)
[2022-04-25] MEDS ORDERED: MELATONIN 3 MG TAB PO PRN (22:54)
[2022-04-26] MEDS: INSULIN ASPART PER UNIT SC SCH ×6 (00:51→20:49)
[2022-04-26] MEDS: PIPERACILLIN/TAZOBACTAM 3.375 GM CI (over 4 hrs) IV SCH ×3 (02:25→18:09)
--- NOTE | 2022-04-26 06:08 | Billing Data ---
Date of Service April 26, 2022 Coding Level of Care Code 99340 INT INP/OBS CARE
[2022-04-26 07:36] LABS: Hematocrit (blood only) 27.9 % (42.0-52.0); Hemoglobin 9.5 g/dl (14.0-18.0); Mean Corpuscular Hemoglobin 33.2 pg (25.0-34.0); Mean Corpuscular Hgb Conc 34.1 g/dL (32.0-36.0); Mean Corpuscular Volume 97.6 fL (80.0-100.0); Mean Platelet Volume 10.6 fL (9.4-12.4); Platelet Count 157 K/uL (130-400); RDW Coefficient of Variation 13.4 % (11.5-14.5); RDW Standard Deviation 46.8 fL (36.4-46.3); Red Blood Count 2.86 M/uL (4.70-6.10); White Blood Count 7.73 K/ul (4.8-10.8)
[2022-04-26] MEDS: TAMSULOSIN HCL 0.4 MG CAP PO SCH ×2 (07:47→19:39)
[2022-04-26] MEDS: ASPIRIN 81 MG ECTAB PO SCH (07:47)
[2022-04-26 07:58] LABS: BUN Creatinine Ratio 12.4 (10-20); Calcium 8.7 mg/dl (8.5-10.1); Creatinine Clr Calc Pharmacy 28.8 ml/min; Est GFR (Non-African American) 39.7 ml/min; Magnesium 2.2 mg/dl (1.7-2.4)
--- NOTE | 2022-04-26 15:17 | Hospitalist Progress Note ---
Date of Service April 26, 2022 Assessment & Plan (1) Diverticulitis of colon: Plan: -Hemodynamically stable at present, not septic on admission -Initial CTAP per STATRAD read concerning for diverticulitis of descending colon/sigmoid, no abscesses, strictures or perforations, final reading pending- will treat as acute uncomplicated diverticulitis -ED course- received Zosyn, BCx pending -Switched antibiotic course to Unasyn/Flagyl on admission -Currently on Zosyn IV q8H -Zofran PRN nausea, Tylenol PRN pain -Currently on low fat carb consist diet -Deferred general surgery consult on admission given pt is without acute abdomen -Recommend to follow up with PCP to get set up with colonoscopy in 6-8 weeks after diverticulitis resolves (2) Permanent atrial fibrillation: Plan: -Chronic, stable -Rate controlled currently -Continue Xarelto for anticoagulation (3) Chronic kidney disease, stage III (moderate): Plan: -Baseline Cr appears 1.4-1.6 -No LEENA at present -Trend BMP (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: Plan: -Insulin dependent DM2 -Last A1C of 8.0% in 01/2022 -BSG of 216 on admission (pt did receive steroid injection for hip osteoarthritis in previous week) -Initiate basal insulin + SSI once pt tolerating diet (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, stable -Continue tamsulosin (6) CAD in [place] artery: Plan: -Continue aspirin -Mg 1.8 on admission, repleted with goal Mg >2 -K 4.0 on admission, goal K > 4 (7) Rheumatoid aortitis: Plan: -Chronic, stable, 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 He tolerated a low fiber carb consistent diet for lunch. He states the LLQ pain has significantly improved but still present. He had 2 BMs today that were very dark per nursing. He is on home iron but states was darker than normal. His Hg b dropped slightly today to 9.5. Review of Systems Review of Systems: Patient complains of left hip pain and left leg weakness and follows with [facility] Denies any chest pain, SOB, dyspnea, nausea, vomiting, urinary sxs, hematochezia or melena All other ROS negative unless stated otherwise Constitutional: + weakness; no fever, no chills and no weight loss Gastrointestinal: + abdominal pain; no nausea and no vomiting Physical Exam Constitutional: WD/WN, vitals as above Respiratory: normal respiratory effort, lungs clear to auscultation Cardiovascular: Rate/Rhythm: + irregularly irregular Heart Sounds: normal S1, normal S2, + click and + murmur Extremities: + varicosities; no calf tenderness and no edema Gastrointestinal (Abdomen): Inspection/Auscultation: abdomen normal to inspection and normal bowel sounds; abdomen not distended Percussion/Palpation: + abdomen tender and abdomen soft (tender to palpation LLQ) Skin: no rashes, warm and dry Neurologic: patellar DTR's 2+ bilat, sensation intact and PERRL, EOMI, accommodation nl, no face palsy, no dysarthria Psychiatric: A+Ox3, euthymic affect Results & Data Results & Data ([facility]) Vital Signs (Past 12 Hours) Vital Signs Temp Pulse Resp BP Pulse Ox O2 Del Method 04/26/22 14:36 37.0 C 71 18 107/47 L 96 Room Air 04/26/22 07:47 Room Air 04/26/22 07:46 36.5 C 86 18 122/74 98 Room Air Laboratory Results Abnormal lab results 04/25/22 04/26/22 04/26/22 Range/Units 20:35 00:47 05:00 RBC (4.70-6.10) M/uL Hgb (14.0-18.0) g/dl Hct (42.0-52.0) % RDW Std Deviation (36.4-46.3) fL Creatinine (0.6-1.4) mg/dl Glucose (70-99(Fasting)) mg/dl POC Glucose 178 H 100 H 140 H (70-99) mg/dl 04/26/22 04/26/22 04/26/22 Range/Units 06:58 06:58 08:04 RBC 2.86 L (4.70-6.10) M/uL Hgb 9.5 L (14.0-18.0) g/dl Hct 27.9 L (42.0-52.0) % RDW Std Deviation 46.8 H (36.4-46.3) fL Creatinine 1.53 H (0.6-1.4) mg/dl Glucose 139 H (70-99(Fasting)) mg/dl POC Glucose 138 H (70-99) mg/dl 04/26/22 Range/Units 12:08 RBC (4.70-6.10) M/uL Hgb (14.0-18.0) g/dl Hct (42.0-52.0) % RDW Std Deviation (36.4-46.3) fL Creatinine (0.6-1.4) mg/dl Glucose (70-99(Fasting)) mg/dl POC Glucose 198 H (70-99) mg/dl PG Care Time/CCT Total # of Minutes Spent Total Time Spent with Patient: Total time spent is greater than 50% in coordination of care (as documented) at patient's floor/unit and/or counseling patient: Coding Level of Care Code 44894 SUB INP/OBS CARE MIN Diagnoses Diverticulitis of colon K57.32 Permanent atrial fibrillation I48.21 Chronic kidney disease, stage III (moderate) N18.3 Type 2 diabetes mellitus with neurologic complication E11.49 BPH with obstruction/lower urinary tract symptoms N40.1; N13.8 CAD in [place] artery I25.10 Rheumatoid aortitis I01.1 Anemia D64.9 Anemia type: iron deficiency (8) Anemia Anemia type: iron deficiency
[2022-04-26] MEDS: RIVAROXABAN 15 MG TAB PO SCH (17:49)
[2022-04-27] MEDS: PIPERACILLIN/TAZOBACTAM 3.375 GM CI (over 4 hrs) IV SCH ×2 (03:38→13:00)
[2022-04-27] MEDS ORDERED: LANTUS PER UNIT CHARGE SQ SCH (09:00)
[2022-04-27] MEDS: INSULIN ASPART PER UNIT SC SCH ×2 (09:29→12:44)
[2022-04-27] MEDS: TAMSULOSIN HCL 0.4 MG CAP PO SCH (09:37)
[2022-04-27] MEDS: ASPIRIN 81 MG ECTAB PO SCH (09:37)
[2022-04-27 09:47] LABS: BUN Creatinine Ratio 12.2 (10-20); Calcium 8.9 mg/dl (8.5-10.1); Creatinine Clr Calc Pharmacy 26.9 ml/min; Est GFR (African American) 42.3 ml/min; Est GFR (Non-African American) 36.5 ml/min; Potassium 3.9 mmol/L (3.5-5.1)
[2022-04-27 09:56] LABS: Hematocrit (blood only) 30.6 % (42.0-52.0); Hemoglobin 10.1 g/dl (14.0-18.0); Mean Platelet Volume 10.5 fL (9.4-12.4); Platelet Count 161 K/uL (130-400); RDW Coefficient of Variation 13.6 % (11.5-14.5); RDW Standard Deviation 48.8 fL (36.4-46.3); Red Blood Count 3.06 M/uL (4.70-6.10); White Blood Count 5.77 K/ul (4.8-10.8)
--- NOTE | 2022-04-27 16:37 | Discharge Summary ---
Date of Service April 27, 2022 Admission HPI Per Admitting Provider 89 yo M with complex PMH including permanent atrial fibrillation on Xarelto, CAD s/p bypass, DM2, RA, CKD3, 2x previous episodes of diverticulitis presenting with abdominal pain and confusion. Pt's provides most of history. Shortly before going to bed, pt told he was seeing letters/numbers on his skin which had been occurring for past few hours. He also reported some dysuria with lower abdominal pain greatest in the LLQ. Pt arrived to ER hemodynamically stable. WBC 11, Hgb 11, Na 135, Cr 1.44, glucose 216, Mg 1.8. CBC, CMP, troponin, UA otherwise unremarkable. EKG with atrial fibrillation, rate 86. CTAP initial STATRAD read suggestive of descending colon/sigmoid diverticulitis without abscess or perforation. Pt received IVF NSS and Zosyn in ER. On my evaluation, pt reports continued LLQ abdominal pain but no other symptoms. Principal Diagnosis Acute diverticulitis Discharge Exam Patient is awake and eating lunch she is having no abdominal complaints or problems his was present at the bedside Discharge Data Allergies Allergy/AdvReac Type Severity Reaction Status Date / Time glyburide Allergy Unknown PT NOT Verified 03/27/22 09:47 AWARE atorvastatin [From Lipitor] AdvReac Mild Muscle Pain Verified 03/27/22 09:47 lovastatin [From Mevacor] AdvReac Mild Muscle Pain Verified 03/27/22 09:47 simvastatin [From Zocor] AdvReac Mild Muscle Pain Verified 03/27/22 09:47 Uwrnhts-JPH-YvR Reductase AdvReac Mild Muscle Pain Verified 03/27/22 09:47 Inhibitor [Vdrxazk-Req-Yiy Reductase Inhibitor] ezetimibe AdvReac Unknown ALL Verified 03/27/22 09:47 STATINS GIVE LEG CRAMPS metformin AdvReac Unknown DIARRHEA Verified 03/27/22 09:47 niacin AdvReac Unknown RED FLUSH Verified 03/27/22 09:47 tramadol AdvReac Unknown upset Verified 03/27/22 09:47 stomach Consultations 04/25/22 02:46 ED Decision to Admit Stat Ordered Studies 04/25/22 01:40 CT abd pelvis wo con Urgent Hospital Course (1) Diverticulitis of colon: -Hemodynamically stable at discharge, not septic on admission -Initial CTAP per STATRAD read concerning for diverticulitis of descending colon/sigmoid, no abscesses, strictures or perforations, final reading pending- will treat as acute uncomplicated diverticulitis -Patient be discharged on Augmentin therapy holding methotrexate while on antibiotics. Patient typically sees [facility] gastroenterology and had a colonoscopy in May 2020. 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: -Insulin dependent DM2 -Last A1C of 8.0% in 01/2022 -Patient to resume his typical outpatient regimen for diabetic care which is glargine 10 units at bedtime plus sliding scale (5) BPH with obstruction/lower urinary tract symptoms: -Chronic, stable no lower urinary tract symptoms -Continue tamsulosin (6) CAD in [place] artery: -Continue aspirin (7) Rheumatoid aortitis: -Chronic, stable, no acute flare at present -On hydroxychloroquine and methotrexate as home regimen, recommend hold methotrexate while the patient is on antibiotics Total Time Total Time Spent Total Time Spent (In Minutes): It required greater than 30 minutes to prepare this patient for discharge Discharge Plan Discharge Items Patient Disposition: Home - Self-Care Reason For Visit: DIVERTICULITIS Discharge Diagnosis: diverticulitis Activity: Resume your previous activity Non-emergency contact: Primary Care Provider and Database Programmer Analyst Call non-emergency contact if: your symptoms worsen Follow-up/Referrals: Viktor Jones MD [Primary Care Provider] - 05/01/22 9:00 am Diet: Regular Addtl Attending Provider Instructions: please finish all of your antibiotics, do not take your methotrexate while taking your antibiotic, consider taking a probiotic daily do not eat nuts or seeds if able please follow up with [facility] Pending Studies at Discharge: No Stand-Alone Forms: [employer], Smoking Cessation Medications and DC Order Prescriptions: New amoxicillin-pot clavulanate 875-125 mg tablet 1 tab PO BID Qty: 20 0RF Continued ferrous sulfate 325 mg (65 mg iron) tablet 325 mg PO DAILY Qty: 30 0RF (DME) pen needle, diabetic [BD Ultra-Fine Radha Pen Needle] 32 gauge x 5/32" needle See Rx Instructions .Route Qty: 100 5RF Rx Instructions: As directed Xarelto 15 mg tablet 15 mg PO DAILY Qty: 90 3RF Rx Instructions: must administer with evening meal hydroxychloroquine 200 mg tablet 200 mg PO DAILY Qty: 30 2RF folic acid 1 mg tablet 1 mg PO DAILY Qty: 30 2RF amoxicillin 500 mg capsule 2,000 mg PO .COMPLEX Qty: 4 3RF Rx Instructions: Take 4 capsules by mouth one hour prior to dental procedure; meclizine 25 mg tablet 25 mg PO TID PRN (Reason: dizziness) Qty: 30 4RF insulin aspart U-100 [Novolog FlexPen U-100 Insulin] 100 unit/mL (3 mL) insulin pen 4 unit subcut TID Qty: 15 3RF insulin glargine [Lantus Solostar U-100 Insulin] 100 unit/mL (3 mL) insulin pen 4 unit subcut QPM Qty: 3 3RF (DME) FreeStyle Shawn 2 Sensor Kit See Rx Instructions .Route Qty: 1 6RF Rx Instructions: As directed cholecalciferol (vitamin D3) 50 mcg (2,000 unit) capsule 2,000 unit PO DAILY ketoconazole 2 % shampoo 1 applic topical 2XWK sildenafil 50 mg tablet See Rx Instructions PO DAILY PRN (Reason: sexual activity) Qty: 10 0RF Rx Instructions: 50-100 mg orally daily PRN; administer 30 minutes to 4 hours before activity PreserVision AREDS-2 250-90-40-1 mg Capsule 1 tab PO BID aspirin 81 mg Tablet,Delayed Release (Dr/Ec) 81 mg PO DAILY Qty: 30 0RF methotrexate sodium 2.5 mg tablet 12.5 mg PO WK Qty: 20 0RF Rx Instructions: TAKE THIS MED EVERY SUNDAY. tamsulosin 0.4 mg capsule 0.4 mg PO BID Qty: 180 3RF Discharge Orders: Discharge Order (Routine); Ordered 04/27/22 Ordered By: Ermias Mitchell/Other Patient Handouts: Low-Fiber Diet, Diverticulosis and Diverticulitis, Diverticulitis Dc Admission Data Admit Date/Time: 04/25/22 03:24 Attending Provider: Ermias Contreras Admit Provider: Hiram Fisher Primary Care Provider: Viktor Jones Other Providers: Shad Abbott Other Interventions: Discharge Summary Assessment (RN) Last Done: 04/27/22 13:25 Coding Level of Care Code 45037 INP/OBS DISCH >30 MIN Diagnoses Diverticulitis of colon K57.32 Permanent atrial fibrillation I48.21 Chronic kidney disease, stage III (moderate) N18.3 Type 2 diabetes mellitus with neurologic complication E11.49 BPH with obstruction/lower urinary tract symptoms N40.1; N13.8 CAD in [place] artery I25.10 Rheumatoid aortitis I01.1
== END 2022-04-27 13:55 | disposition home or self-care (01) | DRG 391 ==
LOC: ED 00:31 → 3W 03:24 → SUATTDRO 03:24 → 3W 05:08